=== PATIENT | female | born 1945 | race Caucasian/White ===

== ENCOUNTER 2017-08-29 10:31 | Emergency (ER) | payer MEDICARE ==
[2017-08-29] MEDS ORDERED: Adenocard IV 6 MG/2 ML IV ×2 (10:41→11:22)
[2017-08-29] MEDS ORDERED: Sodium Chloride 0.9% 1000 ML 1,000 ML (10:41)
[2017-08-29] MEDS: Adenocard IV 6 MG/2 ML IV (10:47)
[2017-08-29 11:06] LABS: BASOPHIL % 0.1 % (0.0-0.4); Basophil (Absolute #) 0.01 (0-0.4); Eosinophil % 2.4 % (0.00-5.0); Granulocyte Absolute (ANC) 4.29 (1.4-6.9); Granulocytes % 51.3 % (36.0-66.0); Hematocrit 41.9 % (35-47); Hemoglobin 13.9 gm/dl (12.0-16.0); Lymphocyte (Absolute #) 3.34 (1.0-4.6); Mean Cell Volume 92.3 fl (78-100); Mean Corpuscular Hemoglobin 30.6 pg (26-32); Mean Corpuscular Hgb Concent. 33.2 g/dl (32-36); Mean Platelet Volume 10.3 fl (6-9.5); Monocyte (Absolute #) 0.52 (0.0-1.3); Monocytes % 6.2 % (0.0-12.0); Platelet Count 324 K/mm3 (150-450); Red Blood Count 4.54 M/mm3 (4.1-5.4); Red Cell Distribution Width 13.7 % (11.5-14.0); White Blood Count 8.4 K/mm3 (4.0-10.5)
[2017-08-29 11:08] LABS: ADD MANUAL DIFF? NO (NO)
[2017-08-29 11:09] LABS: Lactic Acid 2.2 (0.4-2.0)
[2017-08-29 11:24] LABS: INR 0.95 (0.8-3.0)
[2017-08-29 11:45] LABS: Appearance CLEAR (CLEAR); Collection Type CLEAN CATCH
[2017-08-29 11:46] LABS: ALBUMIN 4.5 g/dL (3.5-5.0); ALKALINE PHOSPHATASE 63 U/L (38-126); ANION GAP 15.2 MEQ/L (5-15); BLOOD UREA NITROGEN 34 mg/dL (7-17); Bilirubin NEGATIVE (NEGATIVE); Blood TRACE NON-HEM Ery/ul (0-5); CHLORIDE 109 mmol/L (98-107); COMPLETE URINE MICROSCOPIC? YES; Calcium 9.7 mg/dL (8.4-10.2); Carbon Dioxide 21 mmol/L (22-30); Creatinine 1 1.26 mg/dL (0.52-1.04); EST GLOMERULAR FILTRATION RATE 44.4 ML/MIN; Glucose 128 mg/dL (74-106); Glucose NEGATIVE (NEGATIVE); Ketones TRACE (NEGATIVE); Leukocyte Esterase 1+ (NEGATIVE); Nitrite NEGATIVE (NEGATIVE); Potassium 4.2 mmol/L (3.5-5.1); Protein,Urine Dip NEGATIVE (Negative); SGOT/AST 32 U/L (14-36); SGPT/ALT 12 U/L (0-35); SODIUM 140 mmol/L (137-145); Specific Gravity 1.005 (1.005-1.025); Total Protein 7.9 g/dL (6.3-8.2); Urobilinogen NORMAL mg/dL (0-1)
[2017-08-29 11:47] LABS: ADD URINE CULTURE? YES (NO); Bacteria FEW /HPF (NEGATIVE); Epithelial Cells RARE /HPF (FEW)
[2017-08-29] MEDS ORDERED: CALAN IV (11:47)
[2017-08-29] MEDS: CALAN IV (11:53)
[2017-08-29 11:58] LABS: TROPONIN 0.018 ng/mL (0.000-0.034)
== END 2017-08-29 12:34 | disposition home or self-care (01) ==
LOC: ED 10:31
CPT/HCPCS: 36000; 36415; 71046; 80053; 81000; 83605; 84484; 85025; 85610; 87086; 93005; 96374; 99291; J0153

== ENCOUNTER 2017-10-23 20:31 | Emergency (ER) | payer MEDICARE ==
[2017-10-23 21:20] VITALS: O2SAT 99
[2017-10-23] MEDS ORDERED: ANTIVERT 25 MG PO ONE (21:26)
[2017-10-23] MEDS ORDERED: Zofran 4 MG/2 ML VIAL IV ONE (21:26)
[2017-10-23] MEDS ORDERED: Sodium Chloride 0.9% 500 ML 500 ML IV ONE ×2 (21:28→22:06)
--- NOTE | 2017-10-23 21:37 | ERPHSYRPT ---
- History of Present Illness Time Seen by Provider: 10/23/17 21:15 Source: patient Exam Limitations: no limitations Patient Subjective Stated Complaint: pt is alert and oriented. pt is ambulatory with a steady gait. pt comes in with c/o n/v/dizziness since 1600 today. pt has vomitted x4 times since then. denies chest pain. Triage Nursing Assessment: see above Physician History: Pt states, she was sitting, and working on an iPad, when suddenly felt dizzy, became nauseated, and vomited x4. She has a history of vertigo, and started feeling the same kind of rotation a little later, but denies headaches, chest pain, cough, SOB, focal weakness, fever, chills, other complaints, denies LOC, syncope. She was diagnosed recently with left arm blood clot and takes Eliquis. Timing/Duration: hour(s) (7.5), sudden Severity: moderate Character of Deficits: none Deficits: no difficulties Baseline/Normal Cognition: alert oriented x 3 Current Cognition: alert oriented x 3 Baseline Gait: walks w/o assistance Associated Symptoms: nausea, vomiting Allergies/Adverse Reactions: diltiazem HCl [From Cardizem] Allergy (Intermediate, Verified 01/09/16 17:29) Rash Sulfa (Sulfonamide Antibiotics) [Sulfa(Sulfonamide Antibiotics)] Allergy ( Intermediate, Verified 01/09/16 17:29) NUMBESS TO FEET stated having numbness in hands and feet betamethasone sodium phosphate [From Celestone] Allergy (Mild, Verified 17:29) IRREGULAR HEARTRATE Tetanus Vaccines and Toxoid [Tetanus] Allergy (Mild, Verified 01/09/16 17:29) Swelling hydrocodone bitartrate [From Vicodin] Adverse Reaction (Intermediate, Verified 01/09/16 17:29) Nausea and Vomiting morphine Adverse Reaction (Intermediate, Verified 01/09/16 17:29) Itching betamethasone [From [place]] Adverse Reaction (Mild, Verified 01/09/16 17:29) Irregular Heart Beat epinephrine Adverse Reaction (Mild, Verified 01/09/16 17:29) Rapid Heart Beat PPD Allergy (Mild, Uncoded 01/09/16 17:29) Swelling Home Medications: Aspirin [Aspir 81] 81 mg PO DAILY 01/09/12 [History] Pyridostigmine [place] [Mestinon] 60 mg PO TID 05/21/14 [History] Lansoprazole [Prevacid] 30 mg PO DAILY 08/20/14 [History] Verapamil HCl Sr 180 mg [Isoptin Sr 180Mg] 80 mg PO DAILY 08/20/14 [ History] Apixaban [Eliquis 5 mg Tablet] 5 mg PO DAILY 10/23/17 [History] Hx Tetanus, Diphtheria Vaccination/Date Given: Yes (ALLERGIC) Hx Influenza Vaccination/Date Given: No Hx Pneumococcal Vaccination/Date Given: No Immunizations Up to Date: Yes - Review of Systems Constitutional: No Symptoms Eyes: No Symptoms Abdominal/Gastrointestinal: Nausea, Vomiting, No Abdominal Pain Neurological: Dizziness, Vertigo All Other Systems: Reviewed and Negative - Past Medical History Pertinent Past Medical History: Yes Neurological History: No Pertinent History ENT History: No Pertinent History Cardiac History: Arrhythmia, Other Respiratory History: No Pertinent History, Other Endocrine Medical History: No Pertinent History Musculoskeletal History: Arthritis, Other GI Medical History: No Pertinent History History: No Pertinent History Psycho-Social History: No Pertinent History Female Reproductive Disorders: No Pertinent History Other Medical History: MUSCULAR DYSTROPHY, svt, heart murmur - Past Surgical History Past Surgical History: Yes Neuro Surgical History: No Pertinent History Cardiac: No Pertinent History Respiratory: No Pertinent History Gastrointestinal: No Pertinent History Genitourinary: No Pertinent History Musculoskeletal: No Pertinent History Female Surgical History: No Pertinent History Other Surgical History: GLAND DRAINED IN NECK AN - Social History Smoking Status: Never smoker Exposure to second hand smoke: No Drug Use: none Patient Lives Alone: Yes - Female History Hx Now: No - Nursing Vital Signs Nursing Vital Signs: Initial Vital Signs Temperature 97.6 F 10/23/17 20:32 Pulse Rate 56 L 10/23/17 20:32 Respiratory Rate 16 10/23/17 20:32 Blood Pressure 148/85 10/23/17 20:32 O2 Sat by Pulse Oximetry 99 10/23/17 20:32 Pain Scale Pain Intensity 2 - Avis Coma Scale Best Eye Response (Koki): (4) open spontaneously Best Verbal Response (Avis): (5) oriented Best Motor Response (Koki): (6) obeys commands Koki Total: 15 - Physical Exam General Appearance: no apparent distress Eye Exam: bilateral eye: PERRL, EOMI Ears, Nose, Throat Exam: normal ENT inspection, TMs normal, pharynx normal, moist mucous membranes Neck Exam: normal inspection, non-tender, supple, No carotid bruit, No JVD, No lymphadenopathy Respiratory: normal breath sounds, lungs clear, airway intact, No chest tenderness, No respiratory distress Cardiovascular: regular rate/rhythm, normal heart sounds, normal peripheral pulses, No murmur Gastrointestinal: soft, normal bowel sounds, No tenderness, No distention, No mass, No guarding, No ecchymosis, No rebound, No organomegaly Back Exam: normal inspection, No CVA tenderness Extremity Exam: normal inspection, No calf tenderness, No elijah's sign, No pedal edema Peripheral Pulses: dorsalis-pedis (R): 3+, dorsalis-pedis (L): 3+ Mental Status: alert, oriented x 3, 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 Exam: normal hearing, normal speech, PERRL Coordination/Gait: normal gait, normal cerebellar function Motor/Sensory: no motor deficit, no sensory deficit DTR: knee (R): 3+, knee (L): 3+ Skin Exam: normal color, warm, dry, rash SpO2 Interpretation: normal SpO2: 99 Oxygen Delivery: Room Air - Course Nursing assessment & vital signs reviewed: Yes EKG Interpreted by Me: RATE (59/min), Sinus Beto, Left [place] Deviation, NORMAL INTERVALS, Non-specific ST Changes, Other (unchanged from 08/29/17) - CT Exams Head CT Interpretation: Negative, Tele-radiologist Report Ordered Tests: Active Orders 24 hr Category Date Time Status Sulphate Tester STAT Care 10/23/17 21:26 Active EKG-ER Only STAT Care 10/23/17 21:26 Active IV Insertion STAT Care 10/23/17 21:26 Active HEAD WITHOUT CONTRAST [CT] Stat Exams 10/23/17 21:26 Taken CBC W DIFF Stat Lab 10/23/17 22:30 Completed CMP Stat Lab 10/23/17 22:30 Completed CULTURE,URINE Stat Lab 10/23/17 22:30 Received PROTIME WITH INR Stat Lab 10/23/17 22:45 Completed TROPONIN Q3H Lab 10/23/17 22:45 Completed TROPONIN Q3H Lab 10/24/17 00:30 Ordered TROPONIN Q3H Lab 10/24/17 03:30 Ordered TROPONIN Q3H Lab 10/24/17 06:30 Ordered TROPONIN Q3H Lab 10/24/17 09:30 Ordered UA W/ MICROSCOPIC Stat Lab 10/23/17 22:30 Completed Medication Summary Discontinued Medications Generic Name Dose Route Start Last Admin Trade Name Higinio PRN Reason Stop Dose Admin Sodium Chloride 500 mls @ 500 mls/hr 10/23/17 21:28 10/23/17 22:48 Sodium Chloride 0.9% 500 Ml IV 10/23/17 22:27 500 mls/hr .Q1H ONE Administration Sodium Chloride Confirm 10/23/17 22:06 Sodium Chloride 0.9% 500 Ml Administered 10/23/17 22:07 Dose 500 mls @ ud IV .STK-MED ONE Meclizine HCl 12.5 mg 10/23/17 21:26 10/23/17 22:07 Antivert 25 Mg PO 10/23/17 21:27 12.5 mg STAT ONE Administration Meclizine HCl Confirm 10/23/17 22:06 Antivert 25 Mg Administered 10/23/17 22:07 Dose 25 mg .ROUTE .STK-MED ONE Ondansetron HCl 4 mg 10/23/17 21:26 10/23/17 22:48 Zofran 4 Mg/2 Ml Vial IV 10/23/17 21:27 4 mg STAT ONE Administration Ondansetron HCl Confirm 10/23/17 22:06 Zofran 4 Mg/2 Ml Vial Administered 10/23/17 22:07 Dose 4 mg .ROUTE .STK-MED ONE Lab/Rad Data: Laboratory Result Diagrams 10/23/17 22:30 10/23/17 22:30 Laboratory Results 10/23/17 10/23/17 10/23/17 Range/Units 22:45 22:45 22:30 WBC (4.0-10.5) K/mm3 RBC (4.1-5.4) M/mm3 Hgb (12.0-16.0) gm/dl Hct (35-47) % MCV (78-100) fl MCH (26-32) pg MCHC (32-36) g/dl RDW (11.5-14.0) % Plt Count (150-450) K/mm3 MPV (6-9.5) fl Gran % (36.0-66.0) % Eos # (Auto) (0-0.5) Absolute Lymphs (auto) (1.0-4.6) Absolute Monos (auto) (0.0-1.3) Lymphocytes % (24.0-44.0) % Monocytes % (0.0-12.0) % Eosinophils % (0.00-5.0) % Basophils % (0.0-0.4) % Absolute Granulocytes (1.4-6.9) Basophils # (0-0.4) PT 15.3 H (9.95-12.35) SECONDS INR 1.31 (0.8-3.0) Sodium 137 (137-145) mmol/L Potassium 4.4 (3.5-5.1) mmol/L Chloride 106 (98-107) mmol/L Carbon Dioxide 24 (22-30) mmol/L Anion Gap 11.4 (5-15) MEQ/L BUN 31 H (7-17) mg/dL Creatinine 1.04 (0.52-1.04) mg/dL Estimated GFR 55.4 ML/MIN Glucose 125 H (74-106) mg/dL Calcium 9.1 (8.4-10.2) mg/dL Total Bilirubin 0.70 (0.2-1.3) mg/dL AST 30 (14-36) U/L ALT 17 (0-35) U/L Alkaline Phosphatase 59 (38-126) U/L Troponin I < 0.012 (0.000-0.034) ng/mL Serum Total Protein 7.5 (6.3-8.2) g/dL Albumin 4.5 (3.5-5.0) g/dL Ur Collection Type Urine Color (YELLOW) Urine Appearance (CLEAR) Urine pH (5-6) Ur Specific [place] (1.005-1.025) Urine Protein (Negative) Urine Ketones (NEGATIVE) Urine Blood (0-5) Kenny/ul Urine Nitrite (NEGATIVE) Urine Bilirubin (NEGATIVE) Urine Urobilinogen (0-1) mg/dL Ur Leukocyte Esterase (NEGATIVE) Urine Microscopic WBC (0-5) /HPF Ur Epithelial Cells (FEW) /HPF Urine Bacteria (NEGATIVE) /HPF Urine Mucus (NEGATIVE) /HPF Urine Culture Reflexed (NO) Urine Glucose (NEGATIVE) mg/dL Specimen Received 10/23/17 10/23/17 Range/Units 22:30 22:30 WBC 4.5 (4.0-10.5) K/mm3 RBC 4.03 L (4.1-5.4) M/mm3 Hgb 12.5 (12.0-16.0) gm/dl Hct 37.5 (35-47) % MCV 93.1 (78-100) fl MCH 31.0 (26-32) pg MCHC 33.3 (32-36) g/dl RDW 13.7 (11.5-14.0) % Plt Count 186 (150-450) K/mm3 MPV 10.5 H (6-9.5) fl Gran % 75.4 H (36.0-66.0) % Eos # (Auto) 0.02 (0-0.5) Absolute Lymphs (auto) 0.91 L (1.0-4.6) Absolute Monos (auto) 0.17 (0.0-1.3) Lymphocytes % 20.2 L (24.0-44.0) % Monocytes % 3.8 (0.0-12.0) % Eosinophils % 0.4 (0.00-5.0) % Basophils % 0.2 (0.0-0.4) % Absolute Granulocytes 3.40 (1.4-6.9) Basophils # 0.01 (0-0.4) PT (9.95-12.35) SECONDS INR (0.8-3.0) Sodium (137-145) mmol/L Potassium (3.5-5.1) mmol/L Chloride (98-107) mmol/L Carbon Dioxide (22-30) mmol/L Anion Gap (5-15) MEQ/L BUN (7-17) mg/dL Creatinine (0.52-1.04) mg/dL Estimated GFR ML/MIN Glucose (74-106) mg/dL Calcium (8.4-10.2) mg/dL Total Bilirubin (0.2-1.3) mg/dL AST (14-36) U/L ALT (0-35) U/L Alkaline Phosphatase (38-126) U/L Troponin I (0.000-0.034) ng/mL Serum Total Protein (6.3-8.2) g/dL Albumin (3.5-5.0) g/dL Ur Collection Type CCMS Urine Color YELLOW (YELLOW) Urine Appearance CLEAR (CLEAR) Urine pH 7.0 (5-6) Ur Specific [place] 1.015 (1.005-1.025) Urine Protein TRACE (Negative) Urine Ketones NEGATIVE (NEGATIVE) Urine Blood NEGATIVE (0-5) Kenny/ul Urine Nitrite NEGATIVE (NEGATIVE) Urine Bilirubin NEGATIVE (NEGATIVE) Urine Urobilinogen NORMAL (0-1) mg/dL Ur Leukocyte Esterase 1+ (NEGATIVE) Urine Microscopic WBC 15-25 (0-5) /HPF Ur Epithelial Cells MANY (FEW) /HPF Urine Bacteria FEW (NEGATIVE) /HPF Urine Mucus SLIGHT (NEGATIVE) /HPF Urine Culture Reflexed YES (NO) Urine Glucose NEGATIVE (NEGATIVE) mg/dL Specimen Received 10-23-17 2252 - Progress Progress: improved Progress Note: 10/23/17 23:47 Pt states, she feels much better, not nauseated, her vertigo, dizziness resolved , denies any pain. I explained our findings to her, she is being discharged in stable condition to rest x 2-3 days, drink plenty of fluids, and follow up with her physician in 2-3 days, return if severe headaches, dizziness, chest pain or vomiting. She is discharged on Meclizine 12.5 mg PO TID as needed, and Zofran ODT #5. Counseled pt/family regarding: lab results, diagnosis, need for follow-up, rad results - Departure Time of Disposition: 23:49 Departure Disposition: Home Clinical Impression: Vertigo Condition: Stable Critical Care Time: No Referrals: KRISTOPHER CASEY MD [Primary Care Provider] - Instructions: Vomiting -- Adult, Vertigo (a Type of Dizziness) (DC) Additional Instructions: Rest x 2-3 days, drink plenty of fluids, return if severe headaches, dizziness, vomiting, focal weakness, chest pain or lethargy ! Follow up with your physician in 2-3 days! Prescriptions: Ondansetron ODT 4 MG [Zofran Odt 4 mg] 4 mg PO Q6H PRN PRN #10 tab.rapdis PRN Reason: Nausea/Vomiting Meclizine HCl 12.5 mg PO TID PRN #15 tablet PRN Reason: Dizziness
[2017-10-23] MEDS ORDERED: Zofran 4 MG/2 ML VIAL ONE (22:06)
[2017-10-23] MEDS ORDERED: ANTIVERT 25 MG ONE (22:06)
[2017-10-23 22:16] VITALS: BP 162/84; PULSE 60
[2017-10-23 22:42] LABS: BASOPHIL % 0.2 % (0.0-0.4); Basophil (Absolute #) 0.01 (0-0.4); Eosinophil % 0.4 % (0.00-5.0); Eosinophil (Absolute #) 0.02 (0-0.5); Granulocytes % 75.4 % (36.0-66.0); Hematocrit 37.5 % (35-47); Hemoglobin 12.5 gm/dl (12.0-16.0); Lymphocyte (Absolute #) 0.91 (1.0-4.6); Lymphocytes % 20.2 % (24.0-44.0); Mean Cell Volume 93.1 fl (78-100); Mean Corpuscular Hgb Concent. 33.3 g/dl (32-36); Mean Platelet Volume 10.5 fl (6-9.5); Monocyte (Absolute #) 0.17 (0.0-1.3); Monocytes % 3.8 % (0.0-12.0); Platelet Count 186 K/mm3 (150-450); Red Blood Count 4.03 M/mm3 (4.1-5.4); Red Cell Distribution Width 13.7 % (11.5-14.0); White Blood Count 4.5 K/mm3 (4.0-10.5)
[2017-10-23 22:52] LABS: Appearance CLEAR (CLEAR); Bilirubin NEGATIVE (NEGATIVE); Blood NEGATIVE Ery/ul (0-5); Glucose NEGATIVE (NEGATIVE); Ketones NEGATIVE (NEGATIVE); Leukocyte Esterase 1+ (NEGATIVE); Nitrite NEGATIVE (NEGATIVE); Protein,Urine Dip TRACE (Negative); Specific Gravity 1.015 (1.005-1.025); Urobilinogen NORMAL mg/dL (0-1)
[2017-10-23 22:53] LABS: Bacteria FEW /HPF (NEGATIVE); Epithelial Cells MANY /HPF (FEW); Mucus SLIGHT /HPF (NEGATIVE); WBC 15-25 /HPF (0-5)
[2017-10-23 23:00] LABS: INR 1.31 (0.8-3.0)
[2017-10-23 23:05] LABS: ALBUMIN 4.5 g/dL (3.5-5.0); ANION GAP 11.4 MEQ/L (5-15); BILIRUBIN,TOTAL 0.7 mg/dL (0.2-1.3); Calcium 9.1 mg/dL (8.4-10.2); Creatinine 1 1.04 mg/dL (0.52-1.04); Potassium 4.4 mmol/L (3.5-5.1); Total Protein 7.5 g/dL (6.3-8.2)
[2017-10-24] MEDS ORDERED: AMOXIL 500 MG PO ONE (00:10)
[2017-10-24] MEDS ORDERED: AMOXIL 500 MG ONE (00:13)
[2017-10-24] MEDS ORDERED: AMOXIL 250 MG/5 ML PO ONE (00:24)
[2017-10-24] MEDS ORDERED: AMOXIL 250 MG/5 ML ONE (00:28)
--- NOTE | 2017-10-24 08:31 | XRAY ---
Indication: Dizziness. No known injury. Multiple contiguous axial images obtained through the head without contrast. Comparison: September 02, 2007. Again normal appearing brain parenchyma, ventricles, and bony calvarium. Visualized paranasal sinuses and mastoid air cells are clear. Impression: Stable normal CT head without contrast exam. CT DI 68.65
== END 2017-10-24 00:38 | disposition home or self-care (01) ==
LOC: ED 20:31
DX: R42 Dizziness and giddiness (principal); R11.2 Nausea with vomiting, unspecified; Z79.01 Long term (current) use of anticoagulants; Z79.899 Other long term (current) drug therapy
CPT/HCPCS: 36415; 70450; 80053; 81000; 84484; 85025; 85610; 87086; 93041; 96360; 96374; 99284; J2405; A9270-GY

== ENCOUNTER 2018-01-18 14:39 | Emergency (ER) | payer MEDICARE ==
--- NOTE | 2018-01-18 15:09 | ERPHSYRPT ---
- History of Present Illness Time Seen by Provider: 01/18/18 15:02 Source: patient Exam Limitations: no limitations Physician History: The patient is a 72-year-old right-handed female with a friend complaining that she accidentally hit the car door with her right hand causing a skin tear to the backside of her right hand. Her tetanus vaccination is not up-to-date because she is allergic to tetanus vaccine. She denies numbness or tingling. There is some mild bleeding. Her past medical history is significant for muscular dystrophy, GERD, A. fib. Timing/Duration: today Quality: painful Severity: mild Location: hands (right) Possible Causes: other (trauma) Associated Symptoms: other (skin tear) Allergies/Adverse Reactions: diltiazem HCl [From Cardizem] Allergy (Intermediate, Verified 01/18/18 15:04) Rash Sulfa (Sulfonamide Antibiotics) [Sulfa(Sulfonamide Antibiotics)] Allergy ( Intermediate, Verified 01/18/18 15:04) NUMBESS TO FEET stated having numbness in hands and feet betamethasone sodium phosphate [From Celestone] Allergy (Mild, Verified 15:04) IRREGULAR HEARTRATE Tetanus Vaccines and Toxoid [Tetanus] Allergy (Mild, Verified 01/18/18 15:04) Swelling hydrocodone bitartrate [From Vicodin] Adverse Reaction (Intermediate, Verified 01/18/18 15:04) Nausea and Vomiting morphine Adverse Reaction (Intermediate, Verified 01/18/18 15:04) Itching betamethasone [From Celestone] Adverse Reaction (Mild, Verified 01/18/18 15:04) Irregular Heart Beat epinephrine Adverse Reaction (Mild, Verified 01/18/18 15:04) Rapid Heart Beat PPD Allergy (Mild, Uncoded 01/18/18 15:04) Swelling Home Medications: Aspirin [Aspir 81] 81 mg PO DAILY 01/09/12 [History] Pyridostigmine [place] [Mestinon] 60 mg PO TID 05/21/14 [History] Lansoprazole [Prevacid] 30 mg PO DAILY 08/20/14 [History] Verapamil HCl Sr 180 mg [Isoptin Sr 180Mg] 80 mg PO DAILY 08/20/14 [ History] Apixaban [Eliquis 5 mg Tablet] 5 mg PO DAILY 10/23/17 [History] Hx Tetanus, Diphtheria Vaccination/Date Given: Yes (ALLERGIC) Hx Influenza Vaccination/Date Given: No Hx Pneumococcal Vaccination/Date Given: No - Review of Systems Constitutional: No Fever, No Chills Eyes: No Symptoms Ears, Nose, & Throat: No Symptoms Respiratory: No Cough, No Dyspnea Cardiac: No Chest Pain, No Edema, No Syncope Abdominal/Gastrointestinal: No Abdominal Pain, No Nausea, No Vomiting, No Diarrhea Genitourinary Symptoms: No Dysuria Musculoskeletal: No Back Pain, No Neck Pain Skin: Other (skin tear) Neurological: No Dizziness, No Focal Weakness, No Sensory Changes Psychological: No Symptoms Endocrine: No Symptoms Hematologic/Lymphatic: No Symptoms Immunological/Allergic: No Symptoms All Other Systems: Reviewed and Negative - Past Medical History Pertinent Past Medical History: Yes Neurological History: No Pertinent History ENT History: No Pertinent History Cardiac History: Arrhythmia, Other Respiratory History: No Pertinent History, Other Endocrine Medical History: No Pertinent History Musculoskeletal History: Arthritis, Other GI Medical History: No Pertinent History History: No Pertinent History Psycho-Social History: No Pertinent History Female Reproductive Disorders: No Pertinent History Other Medical History: MUSCULAR DYSTROPHY, svt, heart murmur - Past Surgical History Past Surgical History: Yes Neuro Surgical History: No Pertinent History Cardiac: No Pertinent History Respiratory: No Pertinent History Gastrointestinal: No Pertinent History Genitourinary: No Pertinent History Musculoskeletal: No Pertinent History Female Surgical History: No Pertinent History Other Surgical History: GLAND DRAINED IN NECK AN - Social History Smoking Status: Never smoker Exposure to second hand smoke: No Drug Use: none Patient Lives Alone: Yes - Nursing Vital Signs Nursing Vital Signs: Initial Vital Signs Temperature 98.0 F 01/18/18 14:57 Pulse Rate 56 L 01/18/18 14:57 Respiratory Rate 16 01/18/18 14:57 Blood Pressure 151/76 01/18/18 14:57 O2 Sat by Pulse Oximetry 99 01/18/18 14:57 Pain Scale Pain Intensity 2 - Physical Exam General Appearance: no apparent distress, alert Eye Exam: PERRL/EOMI, eyes nml inspection Ears, Nose, Throat Exam: normal ENT inspection, pharynx normal, moist mucous membranes Neck Exam: normal inspection, non-tender, supple, full range of motion Respiratory Exam: normal breath sounds, lungs clear, No respiratory distress Cardiovascular Exam: regular rate/rhythm, normal heart sounds Gastrointestinal/Abdomen Exam: soft, mass, No tenderness Pelvic Exam: not done Rectal Exam: not done Back Exam: normal inspection, normal range of motion, No CVA tenderness, No vertebral tenderness Extremity Exam: normal inspection, normal range of motion Neurologic Exam: alert, oriented x 3, cooperative, normal mood/affect, sensation nml, No motor deficits Skin Exam: laceration (small flap skin tear and linear skin tear to back of right hand.) SpO2 Interpretation: normal Ordered Tests: Active Orders 24 hr Category Date Time Status Wound Care STAT Care 01/18/18 15:12 Ordered - Departure Time of Disposition: 15:14 Departure Disposition: Home Clinical Impression: Skin tear Condition: Stable Critical Care Time: No Referrals: KRISTOPHER CASEY MD [Primary Care Provider] - Additional Instructions: Skin tear to the back of your right hand. The skin tears were closed with Dermabond and Steri-Strips. Allow the Steri-Strips to come off on their own. Take amoxicillin 6 mL 3 times a day for 10 days. Follow-up with your primary medical doctor as needed. Prescriptions: Amoxicillin [Amoxil] 6 ml PO TID #200 ml
[2018-01-18 15:45] VITALS: BP 142/72; PULSE 60; O2SAT 97
== END 2018-01-18 15:45 | disposition home or self-care (01) ==
LOC: ED 14:39
DX: S61.411A Laceration without foreign body of right hand, initial encounter (principal); W22.8XXA Striking against or struck by other objects, initial encounter; Z79.899 Other long term (current) drug therapy
CPT/HCPCS: 12001; 99283

== ENCOUNTER 2018-06-29 17:58 | Emergency (ER) | payer MEDICARE ==
--- NOTE | 2018-06-29 18:11 | ERPHSYRPT ---
- History of Present Illness Time Seen by Provider: 06/29/18 18:11 Source: patient, family Exam Limitations: no limitations Physician History: 72 y/o white female presents with intermittent dizziness over the last few days. this am the dizziness was mild then came on strong and has not left. no head injury and no new medications. pt has a chronic intermittent dizziness. no chest pain and no soa. no abd pain. does not have antivert at home. last time this happened she had a uti. Timing/Duration: today Severity: mild Associated Symptoms: No nausea, No vomiting, No abdominal pain, No chest pain, No headaches, No syncope, No weakness Allergies/Adverse Reactions: diltiazem HCl [From Cardizem] Allergy (Intermediate, Verified 06/29/18 19:36) Rash Sulfa (Sulfonamide Antibiotics) [Sulfa(Sulfonamide Antibiotics)] Allergy ( Intermediate, Verified 06/29/18 19:36) NUMBESS TO FEET stated having numbness in hands and feet betamethasone sodium phosphate [From Celestone] Allergy (Mild, Verified 19:36) IRREGULAR HEARTRATE Tetanus Vaccines and Toxoid [Tetanus] Allergy (Mild, Verified 06/29/18 19:36) Swelling hydrocodone bitartrate [From Vicodin] Adverse Reaction (Intermediate, Verified 06/29/18 19:36) Nausea and Vomiting morphine Adverse Reaction (Intermediate, Verified 06/29/18 19:36) Itching betamethasone [From Celestone] Adverse Reaction (Mild, Verified 06/29/18 19:36) Irregular Heart Beat epinephrine Adverse Reaction (Mild, Verified 06/29/18 19:36) Rapid Heart Beat PPD Allergy (Mild, Uncoded 01/18/18 15:04) Swelling Home Medications: Pyridostigmine [place] [Mestinon] 60 mg PO TID 05/21/14 [History] Lansoprazole [Prevacid] 30 mg PO DAILY 08/20/14 [History] Verapamil HCl Sr 180 mg [Isoptin Sr 180Mg] 80 mg PO DAILY 08/20/14 [ History] Hx Tetanus, Diphtheria Vaccination/Date Given: Yes (ALLERGIC) Hx Influenza Vaccination/Date Given: No Hx Pneumococcal Vaccination/Date Given: No - Review of Systems Constitutional: No Symptoms Eyes: No Symptoms Ears, Nose, & Throat: No Symptoms Respiratory: No Symptoms Cardiac: No Symptoms Abdominal/Gastrointestinal: No Symptoms Genitourinary Symptoms: No Symptoms Musculoskeletal: No Symptoms Skin: No Symptoms Neurological: Dizziness Psychological: No Symptoms Endocrine: No Symptoms Hematologic/Lymphatic: No Symptoms Immunological/Allergic: No Symptoms All Other Systems: Reviewed and Negative - Past Medical History Pertinent Past Medical History: Yes Neurological History: No Pertinent History ENT History: No Pertinent History Cardiac History: Arrhythmia, Other Respiratory History: No Pertinent History, Other Endocrine Medical History: No Pertinent History Musculoskeletal History: Arthritis, Other GI Medical History: No Pertinent History History: No Pertinent History Psycho-Social History: No Pertinent History Female Reproductive Disorders: No Pertinent History Other Medical History: MUSCULAR DYSTROPHY, svt, heart murmur - Past Surgical History Past Surgical History: Yes Neuro Surgical History: No Pertinent History Cardiac: No Pertinent History Respiratory: No Pertinent History Gastrointestinal: No Pertinent History Genitourinary: No Pertinent History Musculoskeletal: No Pertinent History Female Surgical History: No Pertinent History Other Surgical History: GLAND DRAINED IN NECK AN - Social History Smoking Status: Never smoker Exposure to second hand smoke: No Drug Use: none Patient Lives Alone: Yes - Nursing Vital Signs Nursing Vital Signs: Initial Vital Signs Pulse Rate 60 06/29/18 18:06 Respiratory Rate 20 06/29/18 18:06 Blood Pressure 163/90 06/29/18 18:06 O2 Sat by Pulse Oximetry 99 06/29/18 18:06 - Physical Exam General Appearance: mild distress, alert, anxiety Eye Exam: PERRL/EOMI Ears, Nose, Throat Exam: normal ENT inspection, moist mucous membranes Neck Exam: normal inspection, non-tender, supple, full range of motion Respiratory Exam: normal breath sounds, chest tenderness, lungs clear, respiratory distress Cardiovascular Exam: regular rate/rhythm, normal heart sounds, normal peripheral pulses Gastrointestinal/Abdomen Exam: soft, normal bowel sounds, No tenderness, No guarding, No rebound Pelvic Exam: not done Rectal Exam: not done Back Exam: normal inspection, normal range of motion, No CVA tenderness, No vertebral tenderness Extremity Exam: normal inspection, normal range of motion, pelvis stable Neurologic Exam: alert, oriented x 3, cooperative, 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 Skin Exam: normal color, warm, dry Lymphatic Exam: No adenopathy SpO2 Interpretation: normal O2 Delivery: Room Air - Course Nursing assessment & vital signs reviewed: Yes EKG Interpreted by Me: RATE (57), NORMAL AXIS, NORMAL QRS, Non-specific ST Changes, Other (no change from ekg dated 10/23/17) Ordered Tests: Active Orders 24 hr Category Date Time Status Hatchery Helper STAT Care 06/29/18 18:13 Active Clean Catch Urine Specimen STAT Care 06/29/18 18:11 Active EKG-ER Only STAT Care 06/29/18 18:11 Active IV Insertion STAT Care 06/29/18 18:11 Active Pulse Oximetry (ED) STAT Care 06/29/18 18:11 Active HEAD WITHOUT CONTRAST [CT] Stat Exams 06/29/18 18:55 Taken CBC W DIFF Stat Lab 06/29/18 19:10 Completed CMP Stat Lab 06/29/18 19:10 Completed TROPONIN Q3H Lab 06/29/18 19:10 Completed UA W/RFX UR CULTURE Stat Lab 06/29/18 20:40 Completed Urine Triage Profile Stat Lab 06/29/18 20:40 Received Medication Summary Discontinued Medications Generic Name Dose Route Start Last Admin Trade Name Higinio PRN Reason Stop Dose Admin Sodium Chloride 1,000 mls @ 999 mls/hr 06/29/18 18:41 06/29/18 19:22 Sodium Chloride 0.9% 1000 Ml IV 06/29/18 19:41 999 mls/hr .Q1H1M STA Administration Sodium Chloride Confirm 06/29/18 19:19 Sodium Chloride 0.9% 1000 Ml Administered 06/29/18 19:20 Dose 1,000 mls @ ud .ROUTE .STK-MED ONE Lab/Rad Data: Laboratory Result Diagrams 06/29/18 19:10 06/29/18 19:10 Laboratory Results 06/29/18 06/29/18 06/29/18 Range/Units 20:40 19:10 19:10 WBC (4.0-10.5) K/mm3 RBC (4.1-5.4) M/mm3 Hgb (12.0-16.0) gm/dl Hct (35-47) % MCV (78-100) fl MCH (26-32) pg MCHC (32-36) g/dl RDW (11.5-14.0) % Plt Count (150-450) K/mm3 MPV (6-9.5) fl Gran % (36.0-66.0) % Eos # (Auto) (0-0.5) Absolute Lymphs (auto) (1.0-4.6) Absolute Monos (auto) (0.0-1.3) Lymphocytes % (24.0-44.0) % Monocytes % (0.0-12.0) % Eosinophils % (0.00-5.0) % Basophils % (0.0-0.4) % Absolute Granulocytes (1.4-6.9) Basophils # (0-0.4) Sodium 136 L (137-145) mmol/L Potassium 4.2 (3.5-5.1) mmol/L Chloride 104 (98-107) mmol/L Carbon Dioxide 22 (22-30) mmol/L Anion Gap 13.6 (5-15) MEQ/L BUN 30 H (7-17) mg/dL Creatinine 1.10 H (0.52-1.04) mg/dL Estimated GFR 51.9 ML/MIN Glucose 108 H (74-106) mg/dL Calcium 9.2 (8.4-10.2) mg/dL Total Bilirubin 0.90 (0.2-1.3) mg/dL AST 41 H (14-36) U/L ALT 17 (0-35) U/L Alkaline Phosphatase 76 (38-126) U/L Troponin I < 0.012 (0.000-0.034) ng/mL Serum Total Protein 8.3 H (6.3-8.2) g/dL Albumin 4.8 (3.5-5.0) g/dL Urine Color YELLOW (YELLOW) Urine Appearance CLEAR (CLEAR) Urine pH 8.0 (5-6) Ur Specific [place] 1.013 (1.005-1.025) Urine Protein NEGATIVE (Negative) Urine Ketones TRACE (NEGATIVE) Urine Blood NEGATIVE (0-5) Kenny/ul Urine Nitrite NEGATIVE (NEGATIVE) Urine Bilirubin NEGATIVE (NEGATIVE) Urine Urobilinogen NEGATIVE (0-1) mg/dL Ur Leukocyte Esterase NEGATIVE (NEGATIVE) Urine WBC (Auto) 0-2 (0-5) /HPF Urine RBC (Auto) NONE (0-2) /HPF U Epithel Cells (Auto) RARE (FEW) /HPF Urine Bacteria (Auto) NONE SEEN (NEGATIVE) /HPF Urine Mucus (Auto) SLIGHT (NEGATIVE) /HPF Urine Culture Reflexed NO (NO) Urine Glucose NEGATIVE (NEGATIVE) mg/dL 06/29/18 Range/Units 19:10 WBC 6.5 (4.0-10.5) K/mm3 RBC 4.71 (4.1-5.4) M/mm3 Hgb 14.1 (12.0-16.0) gm/dl Hct 44.2 (35-47) % MCV 93.8 (78-100) fl MCH 29.9 (26-32) pg MCHC 31.9 L (32-36) g/dl RDW 13.7 (11.5-14.0) % Plt Count 190 (150-450) K/mm3 MPV 10.4 H (6-9.5) fl Gran % 77.3 H (36.0-66.0) % Eos # (Auto) 0.07 (0-0.5) Absolute Lymphs (auto) 1.18 (1.0-4.6) Absolute Monos (auto) 0.21 (0.0-1.3) Lymphocytes % 18.2 L (24.0-44.0) % Monocytes % 3.2 (0.0-12.0) % Eosinophils % 1.1 (0.00-5.0) % Basophils % 0.2 (0.0-0.4) % Absolute Granulocytes 5.01 (1.4-6.9) Basophils # 0.01 (0-0.4) Sodium (137-145) mmol/L Potassium (3.5-5.1) mmol/L Chloride (98-107) mmol/L Carbon Dioxide (22-30) mmol/L Anion Gap (5-15) MEQ/L BUN (7-17) mg/dL Creatinine (0.52-1.04) mg/dL Estimated GFR ML/MIN Glucose (74-106) mg/dL Calcium (8.4-10.2) mg/dL Total Bilirubin (0.2-1.3) mg/dL AST (14-36) U/L ALT (0-35) U/L Alkaline Phosphatase (38-126) U/L Troponin I (0.000-0.034) ng/mL Serum Total Protein (6.3-8.2) g/dL Albumin (3.5-5.0) g/dL Urine Color (YELLOW) Urine Appearance (CLEAR) Urine pH (5-6) Ur Specific [place] (1.005-1.025) Urine Protein (Negative) Urine Ketones (NEGATIVE) Urine Blood (0-5) Kenny/ul Urine Nitrite (NEGATIVE) Urine Bilirubin (NEGATIVE) Urine Urobilinogen (0-1) mg/dL Ur Leukocyte Esterase (NEGATIVE) Urine WBC (Auto) (0-5) /HPF Urine RBC (Auto) (0-2) /HPF U Epithel Cells (Auto) (FEW) /HPF Urine Bacteria (Auto) (NEGATIVE) /HPF Urine Mucus (Auto) (NEGATIVE) /HPF Urine Culture Reflexed (NO) Urine Glucose (NEGATIVE) mg/dL - Progress Progress: improved, re-examined Progress Note: 06/29/18 20:15 ct scan head-no acute intracranial process 06/29/18 20:57 pt states she is feeling much better and has no dizziness Counseled pt/family regarding: lab results, diagnosis, need for follow-up, rad results - Departure Time of Disposition: 21:30 Departure Disposition: Home Clinical Impression: Dehydration, mild, Dizziness Condition: Stable Critical Care Time: No Referrals: KRISTOPHER CASEY MD [Primary Care Provider] - Additional Instructions: drink plenty of fluids. follow up with primary doctor for further management Prescriptions: Meclizine HCl 25 mg [Antivert 25 mg] 25 mg PO Q8H #10 tablet
[2018-06-29] MEDS ORDERED: Sodium Chloride 0.9% 1000 ML 1,000 ML IV STA (18:41)
[2018-06-29] MEDS ORDERED: Sodium Chloride 0.9% 1000 ML 1,000 ML ONE (19:19)
[2018-06-29 19:32] LABS: BASOPHIL % 0.2 % (0.0-0.4); Basophil (Absolute #) 0.01 (0-0.4); Eosinophil % 1.1 % (0.00-5.0); Eosinophil (Absolute #) 0.07 (0-0.5); Granulocyte Absolute (ANC) 5.01 (1.4-6.9); Granulocytes % 77.3 % (36.0-66.0); Hematocrit 44.2 % (35-47); Hemoglobin 14.1 gm/dl (12.0-16.0); Lymphocyte (Absolute #) 1.18 (1.0-4.6); Lymphocytes % 18.2 % (24.0-44.0); Mean Cell Volume 93.8 fl (78-100); Mean Corpuscular Hemoglobin 29.9 pg (26-32); Mean Corpuscular Hgb Concent. 31.9 g/dl (32-36); Mean Platelet Volume 10.4 fl (6-9.5); Monocyte (Absolute #) 0.21 (0.0-1.3); Monocytes % 3.2 % (0.0-12.0); Platelet Count 190 K/mm3 (150-450); Red Blood Count 4.71 M/mm3 (4.1-5.4); Red Cell Distribution Width 13.7 % (11.5-14.0); White Blood Count 6.5 K/mm3 (4.0-10.5)
[2018-06-29 19:45] LABS: ALBUMIN 4.8 g/dL (3.5-5.0); ANION GAP 13.6 MEQ/L (5-15); BILIRUBIN,TOTAL 0.9 mg/dL (0.2-1.3); Calcium 9.2 mg/dL (8.4-10.2); Creatinine 1 1.1 mg/dL (0.52-1.04); Potassium 4.2 mmol/L (3.5-5.1); Total Protein 8.3 g/dL (6.3-8.2)
[2018-06-29 21:15] LABS: Appearance CLEAR (CLEAR); Bilirubin NEGATIVE (NEGATIVE); Blood NEGATIVE Ery/ul (0-5); Epithelial Cells RARE /HPF (FEW); Glucose NEGATIVE (NEGATIVE); Ketones TRACE (NEGATIVE); Leukocyte Esterase NEGATIVE (NEGATIVE); Mucus SLIGHT /HPF (NEGATIVE); Nitrite NEGATIVE (NEGATIVE); Protein,Urine Dip NEGATIVE (Negative); Specific Gravity 1.013 (1.005-1.025); Urobilinogen NEGATIVE mg/dL (0-1); WBC 0-2 /HPF (0-5)
[2018-06-29 21:20] LABS: Bacteria NONE SEEN /HPF (NEGATIVE)
[2018-06-29 21:28] LABS: Amphetamine,Urine NEGATIVE (NEGATIVE); Barbiturate,Urine NEGATIVE (NEGATIVE); Benzodiazepine,Urine NEGATIVE (NEGATIVE); Cocaine,Urine NEGATIVE (NEGATIVE); Methadone,Urine NEGATIVE (NEGATIVE); Opiate,Urine NEGATIVE (NEGATIVE); PCP,Urine NEGATIVE (NEGATIVE); THC,Urine NEGATIVE (NEGATIVE)
[2018-06-29 21:55] VITALS: BP 155/76; PULSE 67; O2SAT 98
--- NOTE | 2018-06-30 08:36 | XRAY ---
Indication: Dizziness and nausea. Multiple contiguous axial images obtained through the head without contrast. Comparison: October 23, 2017. Again normal appearing brain parenchyma, ventricles, and bony calvarium. Visualized paranasal sinuses and mastoid air cells are clear. Impression: Stable normal CT head without contrast exam. CT DI 67.22
== END 2018-06-29 22:07 | disposition home or self-care (01) ==
LOC: ED 17:58
DX: E86.0 Dehydration (principal); R42 Dizziness and giddiness; Z79.899 Other long term (current) drug therapy
CPT/HCPCS: 36000; 36415; 70450; 80053; 80307; 81001; 84484; 85025; 93005; 93041; 96360; 99284

== ENCOUNTER 2018-07-10 16:22 | Emergency (ER) | payer MEDICARE ==
[2018-07-10] MEDS ORDERED: APRESOLINE 20 MG/ML INJ IV ONE (17:01)
[2018-07-10] MEDS ORDERED: Sodium Chloride 0.9% 1000 ML 1,000 ML IV SCH (17:15)
[2018-07-10 17:22] LABS: BASOPHIL % 0.2 % (0.0-0.4); Basophil (Absolute #) 0.01 (0-0.4); Eosinophil (Absolute #) 0.15 (0-0.5); Granulocyte Absolute (ANC) 2.94 (1.4-6.9); Granulocytes % 58.1 % (36.0-66.0); Hematocrit 41.2 % (35-47); Hemoglobin 13.4 gm/dl (12.0-16.0); Lymphocyte (Absolute #) 1.57 (1.0-4.6); Mean Cell Volume 94.5 fl (78-100); Mean Corpuscular Hemoglobin 30.7 pg (26-32); Mean Corpuscular Hgb Concent. 32.5 g/dl (32-36); Mean Platelet Volume 10.2 fl (6-9.5); Monocyte (Absolute #) 0.39 (0.0-1.3); Monocytes % 7.7 % (0.0-12.0); Platelet Count 187 K/mm3 (150-450); Red Blood Count 4.36 M/mm3 (4.1-5.4); Red Cell Distribution Width 13.7 % (11.5-14.0); White Blood Count 5.1 K/mm3 (4.0-10.5)
[2018-07-10] MEDS ORDERED: APRESOLINE 20 MG/ML INJ ONE (17:24)
[2018-07-10] MEDS ORDERED: Sodium Chloride 0.9% 1000 ML 1,000 ML ONE (17:25)
--- NOTE | 2018-07-10 17:36 | ERPHSYRPT ---
- History of Present Illness Time Seen by Provider: 07/10/18 16:30 Source: patient Exam Limitations: clinical condition Patient Subjective Stated Complaint: pt reports high blood pressure recording today of 144/105, pt reports 30 mins later it was 126/71, pt states she also noticed a knot in her neck on the right side. pt also reports pressure to the forehead but denies pain at this time. pt is concerned there may be something wrong with her carotid artery. Triage Nursing Assessment: pt is aox3, pupils perrl, afebrile, resps easy and non labored, radial pulses strong and equal, cap refill < 3 seconds, pt skin pink warm dry. small raised area palpable to the right neck, pt pulse can be detected while palpating this area. no redness noted, skin is intact. Physician History: PATIENT WITH A HISTORY OF HYPERTENSION,CHRONIC INTERMITTENT DIZZINESS, MYASTHENA GRAVIS, EVALUATED IN EMERGENCY ROOM LAST WEEK FOR DIZZINESS, EVALUATED WITH A NORMAL HEAD CT AND TREATED WITH MECLIZINE. PATIENT PRESENTS TODAY FOR EVALUATED OF A LOCALIZED SWELLING OVER RIGHT SIDE OF NECK. DENIES HEADACHE, BLURRED VISION, SLURRED SPEECH, UNSTEADY GAIT, FOCAL NUMBNESS, TINGLING OR WEAKNESS IN EXTREMITIES. Timing/Duration: today Associated Symptoms: denies symptoms Allergies/Adverse Reactions: diltiazem HCl [From Cardizem] Allergy (Intermediate, Verified 07/10/18 16:49) Rash Sulfa (Sulfonamide Antibiotics) [Sulfa(Sulfonamide Antibiotics)] Allergy ( Intermediate, Verified 07/10/18 16:49) NUMBESS TO FEET stated having numbness in hands and feet betamethasone sodium phosphate [From Celestone] Allergy (Mild, Verified 16:49) IRREGULAR HEARTRATE Tetanus Vaccines and Toxoid [Tetanus] Allergy (Mild, Verified 07/10/18 16:49) Swelling hydrocodone bitartrate [From Vicodin] Adverse Reaction (Intermediate, Verified 07/10/18 16:49) Nausea and Vomiting morphine Adverse Reaction (Intermediate, Verified 07/10/18 16:49) Itching betamethasone [From [place]] Adverse Reaction (Mild, Verified 07/10/18 16:49) Irregular Heart Beat epinephrine Adverse Reaction (Mild, Verified 07/10/18 16:49) Rapid Heart Beat PPD Allergy (Mild, Uncoded 03/29/19 16:49) Swelling Home Medications: Pyridostigmine [place] [Mestinon] 60 mg PO TID 05/21/14 [History] Lansoprazole [Prevacid] 30 mg PO DAILY 08/20/14 [History] Verapamil HCl Sr 180 mg [Isoptin Sr 180Mg] 80 mg PO DAILY 08/20/14 [ History] Hx Tetanus, Diphtheria Vaccination/Date Given: No Hx Influenza Vaccination/Date Given: No Hx Pneumococcal Vaccination/Date Given: No Immunizations Up to Date: Yes - Review of Systems Constitutional: No Fever, No Chills Eyes: No Symptoms Ears, Nose, & Throat: No Symptoms Respiratory: No Symptoms, No Cough, No Dyspnea Cardiac: No Symptoms, No Chest Pain, No Edema, No Syncope Abdominal/Gastrointestinal: No Symptoms, No Abdominal Pain, No Nausea, No Vomiting, No Diarrhea Genitourinary Symptoms: No Symptoms, No Dysuria Musculoskeletal: No Symptoms, No Back Pain, No Neck Pain Skin: No Rash Neurological: No Dizziness, No Focal Weakness, No Sensory Changes Psychological: No Symptoms Endocrine: No Symptoms All Other Systems: Reviewed and Negative - Past Medical History Pertinent Past Medical History: Yes Neurological History: Other ENT History: No Pertinent History Cardiac History: Arrhythmia, Other Respiratory History: No Pertinent History, Other Endocrine Medical History: No Pertinent History Musculoskeletal History: Arthritis, Other GI Medical History: No Pertinent History History: No Pertinent History Psycho-Social History: No Pertinent History Female Reproductive Disorders: No Pertinent History Other Medical History: MUSCULAR DYSTROPHY, svt, heart murmur - Past Surgical History Past Surgical History: Yes Neuro Surgical History: No Pertinent History Cardiac: No Pertinent History Respiratory: No Pertinent History Gastrointestinal: No Pertinent History Genitourinary: No Pertinent History Musculoskeletal: No Pertinent History Female Surgical History: No Pertinent History Other Surgical History: GLAND DRAINED IN NECK AN INFANT - Social History Smoking Status: Never smoker Exposure to second hand smoke: No Drug Use: none Patient Lives Alone: Yes - Female History Hx Now: No - Nursing Vital Signs Nursing Vital Signs: Initial Vital Signs Temperature 97.6 F 07/10/18 16:29 Pulse Rate 60 07/10/18 16:29 Respiratory Rate 18 07/10/18 16:29 Blood Pressure 204/87 07/10/18 16:29 O2 Sat by Pulse Oximetry 100 07/10/18 16:29 Pain Scale Pain Intensity 0 - Physical Exam General Appearance: no apparent distress, alert Eye Exam: PERRL/EOMI, eyes nml inspection Ears, Nose, Throat Exam: normal ENT inspection, TMs normal, pharynx normal, moist mucous membranes Neck Exam: normal inspection, non-tender, supple, full range of motion Respiratory Exam: normal breath sounds, lungs clear, No respiratory distress Cardiovascular Exam: regular rate/rhythm, normal heart sounds, normal peripheral pulses Gastrointestinal/Abdomen Exam: soft, normal bowel sounds, No tenderness, No mass Back Exam: normal inspection, normal range of motion, No CVA tenderness, No vertebral tenderness Extremity Exam: normal inspection, normal range of motion, pelvis stable Neurologic Exam: alert, oriented x 3, cooperative, normal mood/affect, nml cerebellar function, nml station & gait, sensation nml, No motor deficits Skin Exam: normal color, warm, dry, No rash Lymphatic Exam: No adenopathy SpO2: 100 - Course EKG Interpreted by Me: RATE, Sinus Rhythm, Sinus Beto, NORMAL AXIS Ordered Tests: Active Orders 24 hr Category Date Time Status IV Insertion STAT Care 07/10/18 17:20 Active CHEST 1 VIEW (PORTABLE) Stat Exams 07/10/18 17:02 Taken CBC W DIFF Stat Lab 07/10/18 17:15 Completed CMP Stat Lab 07/10/18 17:15 Completed MAGNESIUM Stat Lab 07/10/18 17:15 Completed PROTIME WITH INR Stat Lab 07/10/18 17:15 Completed TROPONIN Q3H Lab 07/10/18 17:15 Completed TROPONIN Q3H Lab 07/10/18 20:15 Ordered TROPONIN Q3H Lab 07/10/18 23:15 Ordered TROPONIN Q3H Lab 07/11/18 02:15 Ordered TROPONIN Q3H Lab 07/11/18 05:15 Ordered UA W/RFX UR CULTURE Stat Lab 07/10/18 17:43 Completed Medication Summary Generic Name Dose Route Start Last Admin Trade Name Freq PRN Reason Stop Dose Admin Sodium Chloride 1,000 mls @ 30 mls/hr 07/10/18 17:15 07/10/18 17:26 Sodium Chloride 0.9% 1000 Ml IV 08/09/18 17:14 30 mls/hr .Q24H NAHID Administration Discontinued Medications Generic Name Dose Route Start Last Admin Trade Name Freq PRN Reason Stop Dose Admin Hydralazine HCl 10 mg 07/10/18 17:01 07/10/18 17:26 Apresoline 20 Mg/Ml Inj IV 07/10/18 17:02 10 mg STAT ONE Administration Hydralazine HCl Confirm 07/10/18 17:24 Apresoline 20 Mg/Ml Inj Administered 07/10/18 17:25 Dose 20 mg .ROUTE .STK-MED ONE Ceftriaxone Sodium/Dextrose 1 g in 50 mls @ 100 mls/hr 07/10/18 18:12 18:20 Rocephin 1 Gm-D5w 50 Ml Bag IV 07/10/18 18:41 1 ml/hr STAT STA 1 mls/hr Administration Ceftriaxone Sodium/Dextrose Confirm 07/10/18 18:14 Rocephin 1 Gm-D5w 50 Ml Bag Administered 07/10/18 18:15 Dose 1 g in 50 mls @ ud IV .STK-MED ONE Lab/Rad Data: Laboratory Result Diagrams 07/10/18 17:15 07/10/18 17:15 Laboratory Results 07/10/18 07/10/18 07/10/18 Range/Units 17:43 17:15 17:15 WBC (4.0-10.5) K/mm3 RBC (4.1-5.4) M/mm3 Hgb (12.0-16.0) gm/dl Hct (35-47) % MCV (78-100) fl MCH (26-32) pg MCHC (32-36) g/dl RDW (11.5-14.0) % Plt Count (150-450) K/mm3 MPV (6-9.5) fl Gran % (36.0-66.0) % Eos # (Auto) (0-0.5) Absolute Lymphs (auto) (1.0-4.6) Absolute Monos (auto) (0.0-1.3) Lymphocytes % (24.0-44.0) % Monocytes % (0.0-12.0) % Eosinophils % (0.00-5.0) % Basophils % (0.0-0.4) % Absolute Granulocytes (1.4-6.9) Basophils # (0-0.4) PT (9.95-12.35) SECONDS INR (0.8-3.0) Sodium (137-145) mmol/L Potassium (3.5-5.1) mmol/L Chloride (98-107) mmol/L Carbon Dioxide (22-30) mmol/L Anion Gap (5-15) MEQ/L BUN (7-17) mg/dL Creatinine (0.52-1.04) mg/dL Estimated GFR ML/MIN Glucose (74-106) mg/dL Calcium (8.4-10.2) mg/dL Magnesium 2.3 (1.6-2.3) mg/dL Total Bilirubin (0.2-1.3) mg/dL AST (14-36) U/L ALT (0-35) U/L Alkaline Phosphatase (38-126) U/L Troponin I < 0.012 (0.000-0.034) ng/mL Serum Total Protein (6.3-8.2) g/dL Albumin (3.5-5.0) g/dL Urine Color STRAW (YELLOW) Urine Appearance CLEAR (CLEAR) Urine pH 6.0 (5-6) Ur Specific [place] 1.006 (1.005-1.025) Urine Protein NEGATIVE (Negative) Urine Ketones NEGATIVE (NEGATIVE) Urine Blood NEGATIVE (0-5) Kenny/ul Urine Nitrite NEGATIVE (NEGATIVE) Urine Bilirubin NEGATIVE (NEGATIVE) Urine Urobilinogen NEGATIVE (0-1) mg/dL Ur Leukocyte Esterase TRACE (NEGATIVE) Urine WBC (Auto) 6-10 (0-5) /HPF Urine RBC (Auto) NONE (0-2) /HPF U Epithel Cells (Auto) RARE (FEW) /HPF Urine Bacteria (Auto) RARE (NEGATIVE) /HPF Urine Culture Reflexed NO (NO) Urine Glucose NEGATIVE (NEGATIVE) mg/dL 07/10/18 07/10/18 07/10/18 Range/Units 17:15 17:15 17:15 WBC 5.1 (4.0-10.5) K/mm3 RBC 4.36 (4.1-5.4) M/mm3 Hgb 13.4 (12.0-16.0) gm/dl Hct 41.2 (35-47) % MCV 94.5 (78-100) fl MCH 30.7 (26-32) pg MCHC 32.5 (32-36) g/dl RDW 13.7 (11.5-14.0) % Plt Count 187 (150-450) K/mm3 MPV 10.2 H (6-9.5) fl Gran % 58.1 (36.0-66.0) % Eos # (Auto) 0.15 (0-0.5) Absolute Lymphs (auto) 1.57 (1.0-4.6) Absolute Monos (auto) 0.39 (0.0-1.3) Lymphocytes % 31.0 (24.0-44.0) % Monocytes % 7.7 (0.0-12.0) % Eosinophils % 3.0 (0.00-5.0) % Basophils % 0.2 (0.0-0.4) % Absolute Granulocytes 2.94 (1.4-6.9) Basophils # 0.01 (0-0.4) PT 11.5 (9.95-12.35) SECONDS INR 0.99 (0.8-3.0) Sodium 139 (137-145) mmol/L Potassium 4.8 (3.5-5.1) mmol/L Chloride 108 H (98-107) mmol/L Carbon Dioxide 25 (22-30) mmol/L Anion Gap 10.1 (5-15) MEQ/L BUN 20 H (7-17) mg/dL Creatinine 0.90 (0.52-1.04) mg/dL Estimated GFR > 60.0 ML/MIN Glucose 92 (74-106) mg/dL Calcium 9.3 (8.4-10.2) mg/dL Magnesium (1.6-2.3) mg/dL Total Bilirubin 0.90 (0.2-1.3) mg/dL AST 41 H (14-36) U/L ALT 16 (0-35) U/L Alkaline Phosphatase 60 (38-126) U/L Troponin I (0.000-0.034) ng/mL Serum Total Protein 8.2 (6.3-8.2) g/dL Albumin 4.4 (3.5-5.0) g/dL Urine Color (YELLOW) Urine Appearance (CLEAR) Urine pH (5-6) Ur Specific [place] (1.005-1.025) Urine Protein (Negative) Urine Ketones (NEGATIVE) Urine Blood (0-5) Kenny/ul Urine Nitrite (NEGATIVE) Urine Bilirubin (NEGATIVE) Urine Urobilinogen (0-1) mg/dL Ur Leukocyte Esterase (NEGATIVE) Urine WBC (Auto) (0-5) /HPF Urine RBC (Auto) (0-2) /HPF U Epithel Cells (Auto) (FEW) /HPF Urine Bacteria (Auto) (NEGATIVE) /HPF Urine Culture Reflexed (NO) Urine Glucose (NEGATIVE) mg/dL - Progress Progress Note: 07/10/18 19:37 IV NORMAL SALINE 50ML/HR, HYDRALAZINE 10MG IV, BLOOD PRESSURE IMPROVED TO BP 149 /74, ROCEPHIN 1GM IVPB FOR U/A WITH WBC-6-10 Counseled pt/family regarding: lab results, diagnosis, need for follow-up - Departure Departure Disposition: Home Clinical Impression: HYPERTENSION, URINARY TRACT INFECTION Condition: Stable Critical Care Time: No Referrals: KRISTOPHER CASEY MD [Primary Care Provider] - Additional Instructions: CONTINUE ALL CURRENT MEDICATIONS DIRECTED. ANTIBIOTIC KEFLEX SUSPENSION 250MG/5ML, TAKE 7ML EVERY 8 HOURS FOR 10 DAYS. FOLLOWUP WITH YOUR PRIMARY CARE PROVIDER FOR EVALUATION OF YOUR BLOOD PRESSURE. Prescriptions: Cephalexin 250 mg/5 ml Susp [Keflex 250 mg/5 ml Susp] 7 ml PO TID #200 bottle
[2018-07-10 17:37] LABS: INR 0.99 (0.8-3.0); PROTIME 11.5 SECONDS (9.95-12.35)
[2018-07-10 17:42] LABS: ALBUMIN 4.4 g/dL (3.5-5.0); ALKALINE PHOSPHATASE 60 U/L (38-126); ANION GAP 10.1 MEQ/L (5-15); BLOOD UREA NITROGEN 20 mg/dL (7-17); CHLORIDE 108 mmol/L (98-107); Calcium 9.3 mg/dL (8.4-10.2); Carbon Dioxide 25 mmol/L (22-30); Glucose 92 mg/dL (74-106); SGOT/AST 41 U/L (14-36); SGPT/ALT 16 U/L (0-35); SODIUM 139 mmol/L (137-145); Total Protein 8.2 g/dL (6.3-8.2)
[2018-07-10 17:43] LABS: Potassium 4.8 mmol/L (3.5-5.1)
[2018-07-10 17:54] LABS: Appearance CLEAR (CLEAR); Bacteria RARE /HPF (NEGATIVE); Bilirubin NEGATIVE (NEGATIVE); Blood NEGATIVE Ery/ul (0-5); Epithelial Cells RARE /HPF (FEW); Glucose NEGATIVE (NEGATIVE); Ketones NEGATIVE (NEGATIVE); Leukocyte Esterase TRACE (NEGATIVE); Nitrite NEGATIVE (NEGATIVE); Protein,Urine Dip NEGATIVE (Negative); Specific Gravity 1.006 (1.005-1.025); Urobilinogen NEGATIVE mg/dL (0-1)
[2018-07-10] MEDS ORDERED: ROCEPHIN 1 Gm-D5w 50 ml Bag** 1 G/50 ML IVPB IV STA (18:12)
[2018-07-10] MEDS ORDERED: ROCEPHIN 1 Gm-D5w 50 ml Bag** 1 G/50 ML IVPB IV ONE (18:14)
[2018-07-10 20:06] VITALS: BP 153/73; PULSE 60; O2SAT 98
--- NOTE | 2018-07-10 21:49 | XRAY ---
Indication: Dyspnea. Comparison: August 29, 2017. Portable chest demonstrates new minimal left base discoid atelectasis/scarring. Remaining heart, lungs, and bony thorax normal.
== END 2018-07-10 20:14 | disposition home or self-care (01) ==
LOC: ED 16:22
DX: I10 Essential (primary) hypertension (principal); N39.0 Urinary tract infection, site not specified; G70.00 Myasthenia gravis without (acute) exacerbation; Z79.899 Other long term (current) drug therapy
CPT/HCPCS: 36000; 36415; 71045; 80053; 81001; 83735; 84484; 85025; 85610; 96360; 96361; 96365; 96374; 99284; J0360; J0696

== ENCOUNTER 2019-09-10 18:21 | Emergency (ER) | payer MEDICARE ==
--- NOTE | 2019-09-10 18:50 | ERPHSYRPT ---
- History of Present Illness Time Seen by Provider: 09/10/19 18:38 Source: patient Exam Limitations: no limitations Patient Subjective Stated Complaint: Lower left leg pain Triage Nursing Assessment: Patient ambulated back to ED and transferred self to bed. Patient A+O X3. Patient's skin pink, warm and dry. patient complains of left lower leg pain for the past couple of days. Patient states she only has pain when bearing weight. Patient has swelling to left lower leg. Patient states she noticed the swelling after mowing her yard. Patient denies injury to leg. Strong pulses noted to left leg. Physician History: 74 yo wf w pain/edema L calf x2 days. Pt denies injury/dyspnea/chest pain/ fever. She has a h/o LUE DVT but is not on an anticoagulant at present. Method of Injury: unknown Occurred: days ago (2) Quality: other Severity of Pain-Max: moderate Severity of Pain-Current: mild Lower Extremities Pain: leg: left Modifying Factors: Improves With: movement Associated Symptoms: none Allergies/Adverse Reactions: diltiazem HCl [From Cardizem] Allergy (Intermediate, Verified 09/10/19 18:31) Rash Sulfa (Sulfonamide Antibiotics) [Sulfa(Sulfonamide Antibiotics)] Allergy ( Intermediate, Verified 09/10/19 18:31) NUMBESS TO FEET stated having numbness in hands and feet betamethasone sodium phosphate [From Celestone] Allergy (Mild, Verified 18:31) IRREGULAR HEARTRATE Tetanus Vaccines and Toxoid [Tetanus] Allergy (Mild, Verified 09/10/19 18:31) Swelling hydrocodone bitartrate [From Vicodin] Adverse Reaction (Intermediate, Verified 09/10/19 18:31) Nausea and Vomiting morphine Adverse Reaction (Intermediate, Verified 09/10/19 18:31) Itching betamethasone [From Celestone] Adverse Reaction (Mild, Verified 09/10/19 18:31) Irregular Heart Beat epinephrine Adverse Reaction (Mild, Verified 09/10/19 18:31) Rapid Heart Beat PPD Allergy (Mild, Uncoded 09/10/19 18:31) Swelling Home Medications: Pyridostigmine [place] [Mestinon] 60 mg PO TID 05/21/14 [History] Lansoprazole [Prevacid] 30 mg PO DAILY 08/20/14 [History] Verapamil HCl Sr 180 mg [Isoptin Sr 180Mg] 180 mg PO DAILY 08/20/14 [ History] Hx Tetanus, Diphtheria Vaccination/Date Given: No Hx Influenza Vaccination/Date Given: Yes Hx Pneumococcal Vaccination/Date Given: No Immunizations Up to Date: Yes Travel Risk - International Travel Have you traveled outside of the country in past 3 weeks: No Have you or anyone close to you been diagnosed with or: No Do your reside in a community with a known COVID-19 case?: Yes If Yes where:: [facility] - Coronavirus Screening Has patient experienced Coronavirus symptoms: No - Review of Systems Constitutional: No Symptoms Eyes: No Symptoms Ears, Nose, & Throat: No Symptoms Respiratory: No Symptoms Cardiac: No Symptoms Genitourinary Symptoms: No Symptoms Skin: No Symptoms Neurological: No Symptoms Psychological: No Symptoms Endocrine: No Symptoms Hematologic/Lymphatic: No Symptoms Immunological/Allergic: No Symptoms - Past Medical History Pertinent Past Medical History: Yes Neurological History: Other ENT History: No Pertinent History Cardiac History: Arrhythmia, Other Respiratory History: No Pertinent History, Other Endocrine Medical History: No Pertinent History Musculoskeletal History: Other GI Medical History: No Pertinent History History: No Pertinent History Psycho-Social History: No Pertinent History Female Reproductive Disorders: No Pertinent History Other Medical History: MUSCULAR DYSTROPHY, svt, heart murmur - Past Surgical History Past Surgical History: Yes Neuro Surgical History: No Pertinent History Cardiac: No Pertinent History Respiratory: No Pertinent History Gastrointestinal: No Pertinent History Genitourinary: No Pertinent History Musculoskeletal: No Pertinent History Female Surgical History: No Pertinent History Other Surgical History: GLAND DRAINED IN NECK AN , Left eye sugery May 2019 - Social History Smoking Status: Never smoker Exposure to second hand smoke: No Drug Use: none Patient Lives Alone: Yes Significant Family History: no pertinent family hx - Female History Hx Now: No - Nursing Vital Signs Nursing Vital Signs: Initial Vital Signs Temperature 98.2 F 09/10/19 18:34 Pulse Rate 66 09/10/19 18:34 Respiratory Rate 18 09/10/19 18:34 Blood Pressure 168/69 09/10/19 18:34 O2 Sat by Pulse Oximetry 100 09/10/19 18:34 Pain Scale Pain Intensity 0 - Physical Exam General Appearance: no apparent distress Eyes, Ears, Nose, Throat Exam: normal ENT inspection, TMs normal, pharynx normal Neck Exam: normal inspection, non-tender, supple, full range of motion, No Brudzinski, No Kernig's Cardiovascular/Respiratory Exam: normal breath sounds, regular rate/rhythm, heart sounds normal Gastrointestinal/Abdominal Exam: non-tender, soft Back Exam: normal inspection, normal range of motion Hips Exam: left: non-tender Legs Exam: left leg: soft tissue tenderness, swelling Knees Exam: bilateral knee: non-tender, normal inspection, normal range of motion, no evidence of injury Ankle Exam: bilateral ankle: non-tender, normal inspection, normal range of motion, no evidence of injury Foot Exam: bilateral foot: non-tender, normal inspection, normal range of motion , no evidence of injury DTR - Lower Extremities Exam: knee (R): 2+, knee (L): 2+ Neuro/Tendon Exam: normal sensation, normal motor functions, normal tendon functions, responds to pain, No no evidence tendon injury, No motor deficit Mental Status Exam: alert, oriented x 3, cooperative Skin Exam: normal color, warm, dry SpO2 Interpretation: normal SpO2: 100 O2 Delivery: Room Air Ordered Tests: Active Orders 24 hr Category Date Time Status VENOUS UNILAT/LIMITED EXTREMIT [US] Stat Exams 09/10/19 Ordered - Progress Progress: unchanged Progress Note: 09/10/19 20:16 LLE US neg per tech 09/10/19 20:17 Pt refuses po/IM pain meds Counseled pt/family regarding: need for follow-up, rad results - Departure Departure Disposition: Home Clinical Impression: Strain of left calf muscle Condition: Stable Critical Care Time: No Referrals: KRISTOPHER CASEY MD [Primary Care Provider] - Instructions: Lower Extremity Muscle Strain Additional Instructions: Rest/Heat/Massage/Elevation Follow up with your family MD as needed
[2019-09-10 19:35] VITALS: BP 171/77; PULSE 64
[2019-09-10 20:20] VITALS: O2SAT 100
--- NOTE | 2019-09-10 20:58 | XRAY ---
Indication: Left leg swelling. Two-dimensional sonogram and color Doppler imaging of the major venous vessels of the left leg was performed. Comparison: None No thrombus seen in the examined deep venous vessels of the left leg including greater saphenous vein. Veins demonstrate normal compressibility. Venous waveforms are normal with and without augmentation. Impression: Left leg negative for DVT.
== END 2019-09-10 20:27 | disposition home or self-care (01) ==
LOC: ED 18:21
DX: S86.112A Strain of other muscle(s) and tendon(s) of posterior muscle group at lower leg level, left leg, initial encounter (principal); M79.662 Pain in left lower leg; M79.89 Other specified soft tissue disorders; Z86.718 Personal history of other venous thrombosis and embolism; Z79.899 Other long term (current) drug therapy; X50.0XXA Overexertion from strenuous movement or load, initial encounter
CPT/HCPCS: 93971; 99283

== ENCOUNTER 2020-07-24 10:57 | Emergency (ER) | payer MEDICARE ==
[2020-07-24 11:37] LABS: Absolute Neutrophil Ct (ANC) 2.95 (1.4-6.9); BASOPHIL % 0.2 % (0.0-0.4); Basophil (Absolute #) 0.01 (0-0.4); Eosinophil % 1.8 % (0.00-5.0); Eosinophil (Absolute #) 0.09 (0-0.5); Hemoglobin 13.8 gm/dl (12.0-16.0); Lymphocyte (Absolute #) 1.63 (1.0-4.6); Lymphocytes % 32.4 % (24.0-44.0); Mean Cell Volume 96.2 fl (78-100); Mean Corpuscular Hemoglobin 30.9 pg (26-32); Mean Corpuscular Hgb Concent. 32.1 g/dl (32-36); Mean Platelet Volume 10.1 fl (7.5-11.0); Monocyte (Absolute #) 0.35 (0.0-1.3); Neutrophil % 58.6 % (36.0-66.0); Platelet Count 203 K/mm3 (150-450); Red Blood Count 4.47 M/mm3 (4.1-5.4); Red Cell Distribution Width 13.3 % (11.5-14.0)
[2020-07-24 11:43] LABS: INR 0.97 (0.8-3.0)
--- NOTE | 2020-07-24 11:43 | ERPHSYRPT ---
- History of Present Illness Source: patient Patient Subjective Stated Complaint: PT sates "I am not sure what is going on. I am shakey, I do not feel right and the right side of my neck is swollen." Triage Nursing Assessment: PT presented alert and oriented X 3, skin pwd. Pt ambulates with an upright steady gait, able to speak in rapid full sentences pt trembling, anxous. Pt in no apparent respiratory distress. Physician History: 74 yo wf w palpitations x 4hr. Pt denies CP/dyspnea/diaphoresis/N/V/diarrhea/melena/hematochezia. Pt has a h/o SVT. Timing/Duration: today (4hrs) Activities at Onset: rest Quality: other (No pain) Chest Pain Radiation: no radiation Severity of Pain-Max: none Severity of Pain-Current: none Modifying Factors: Improves With: nothing Nitro Today/Relief: provided by EMS Aspirin Treatment Today: no aspirin today Associated Symptoms: No nausea, No vomiting, No abdominal pain, No shortness of breath, No heartburn, No diaphoresis, No cough, No chills, No chest pain, No fever, No headaches, No loss of appetite, No malaise, No rash, No syncope, No seizure, No weakness Prior Chest Pain/Cardiac Workup: no prior chest pain Allergies/Adverse Reactions: diltiazem HCl [From Cardizem] Allergy (Intermediate, Verified 09/10/19 18:31) Rash Sulfa (Sulfonamide Antibiotics) [Sulfa(Sulfonamide Antibiotics)] Allergy (Intermediate, Verified 09/10/19 18:31) NUMBESS TO FEET stated having numbness in hands and feet betamethasone sodium phosphate [From Celestone] Allergy (Mild, Verified 09/10/19 18:31) IRREGULAR HEARTRATE Tetanus Vaccines and Toxoid [Tetanus] Allergy (Mild, Verified 09/10/19 18:31) Swelling hydrocodone bitartrate [From Vicodin] Adverse Reaction (Intermediate, Verified 09/10/19 18:31) Nausea and Vomiting morphine Adverse Reaction (Intermediate, Verified 09/10/19 18:31) Itching betamethasone [From Celestone] Adverse Reaction (Mild, Verified 09/10/19 18:31) Irregular Heart Beat epinephrine Adverse Reaction (Mild, Verified 09/10/19 18:31) Rapid Heart Beat PPD Allergy (Mild, Uncoded 09/10/19 18:31) Swelling Home Medications: Lansoprazole [Prevacid] 30 mg PO DAILY 08/20/14 [History] Verapamil HCl Sr 180 mg [Isoptin Sr 180Mg] 180 mg PO DAILY 08/20/14 [History] Ergocalciferol (Vitamin D2) [Vitamin D] 50,000 unit PO DAILY 07/24/20 [History] Hx Tetanus, Diphtheria Vaccination/Date Given: No Hx Influenza Vaccination/Date Given: Yes Hx Pneumococcal Vaccination/Date Given: No Immunizations Up to Date: Yes Travel Risk - International Travel Have you traveled outside of the country in past 3 weeks: No - Coronavirus Screening Are you exhibiting any of the following symptoms?: No Close contact with a COVID-19 positive Pt in past 14-21 Days: No - Vaccine Status Have you recieved a Covid-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: Yes Processing Operator: Moderna - Vaccination Dates Date of 2cond Vaccination (if applicable): 06/23/2020 - Review of Systems Constitutional: No Symptoms Eyes: No Symptoms Ears, Nose, & Throat: No Symptoms Respiratory: No Symptoms Cardiac: No Symptoms Abdominal/Gastrointestinal: No Symptoms Genitourinary Symptoms: No Symptoms Musculoskeletal: No Symptoms Skin: No Symptoms Neurological: No Symptoms Psychological: No Symptoms Endocrine: No Symptoms Hematologic/Lymphatic: No Symptoms Immunological/Allergic: No Symptoms - Past Medical History Pertinent Past Medical History: Yes Neurological History: Other ENT History: No Pertinent History Cardiac History: Arrhythmia, Other Respiratory History: No Pertinent History, Other Endocrine Medical History: No Pertinent History Musculoskeletal History: Other GI Medical History: No Pertinent History History: No Pertinent History Psycho-Social History: No Pertinent History Female Reproductive Disorders: No Pertinent History Other Medical History: MUSCULAR DYSTROPHY, svt, heart murmur - Past Surgical History Past Surgical History: Yes Neuro Surgical History: No Pertinent History Cardiac: No Pertinent History Respiratory: No Pertinent History Gastrointestinal: No Pertinent History Genitourinary: No Pertinent History Musculoskeletal: No Pertinent History Female Surgical History: No Pertinent History Other Surgical History: GLAND DRAINED IN NECK AN INFANT, Left eye sugery May 2019 - Social History Smoking Status: Never smoker Exposure to second hand smoke: No Drug Use: none Patient Lives Alone: Yes Significant Family History: no pertinent family hx - Nursing Vital Signs Nursing Vital Signs: Initial Vital Signs Temperature 97.8 F 07/24/20 10:58 Pulse Rate 80 07/24/20 10:58 Respiratory Rate 22 07/24/20 10:58 Blood Pressure 185/87 07/24/20 10:58 O2 Sat by Pulse Oximetry 100 07/24/20 10:58 Pain Scale Pain Intensity 0 - Physical Exam General Appearance: no apparent distress, anxiety Eye Exam: PERRL/EOMI, eyes nml inspection Ears, Nose, Throat Exam: normal ENT inspection, TMs normal, pharynx normal, moist mucous membranes Neck Exam: normal inspection, non-tender, supple, full range of motion, No meningismus, No mass, No Brudzinski, No Kernig's Respiratory Exam: normal breath sounds, lungs clear, airway intact Cardiovascular Exam: regular rate/rhythm, No murmur Gastrointestinal/Abdomen Exam: soft, normal bowel sounds, No tenderness Back Exam: normal inspection, normal range of motion, No CVA tenderness Extremity Exam: normal inspection, normal range of motion Neurologic Exam: alert, oriented x 3, cooperative, geriatric social worker II-XII nml as tested, normal mood/affect, nml cerebellar function, nml station & gait, sensation nml, No motor deficits, No sensory deficit Skin Exam: normal color Lymphatic Exam: No adenopathy SpO2 Interpretation: normal SpO2: 100 - Course EKG Interpreted by Me: RATE (NSR/R73/Normal QT-QTc/PAC's/No ST-T wave changes) Rhythm Strip: Rate (NSR/PAC's/Normal QT-QTc/Poor R wave progression) - Radiology Exams Chest X-ray Interpretation: Discussed w/ radiologist (CXR neg per Rad) Ordered Tests: Active Orders 24 hr Category Date Time Status EKG-ER Only STAT Care 07/24/20 11:21 Completed CHEST 1 VIEW (PORTABLE) Stat Exams 07/24/20 11:37 Completed CBC W DIFF Stat Lab 07/24/20 11:34 Completed CMP Stat Lab 07/24/20 11:34 Completed MAGNESIUM Stat Lab 07/24/20 11:34 Completed PROTIME WITH INR Stat Lab 07/24/20 11:34 Completed PTT Stat Lab 07/24/20 11:34 Completed TROPONIN Q3H Lab 07/24/20 11:34 Completed TROPONIN Q3H Lab 07/24/20 13:45 Completed Lab/Rad Data: Laboratory Result Diagrams 07/24/20 11:34 07/24/20 11:34 Laboratory Results 07/24/20 07/24/20 07/24/20 Range/Units 13:45 11:34 11:34 WBC (4.0-10.5) K/mm3 RBC (4.1-5.4) M/mm3 Hgb (12.0-16.0) gm/dl Hct (35-47) % MCV (78-100) fl MCH (26-32) pg MCHC (32-36) g/dl RDW (11.5-14.0) % Plt Count (150-450) K/mm3 MPV (7.5-11.0) fl Gran % (36.0-66.0) % Eos # (Auto) (0-0.5) Absolute Lymphs (auto) (1.0-4.6) Absolute Monos (auto) (0.0-1.3) Lymphocytes % (24.0-44.0) % Monocytes % (0.0-12.0) % Eosinophils % (0.00-5.0) % Basophils % (0.0-0.4) % Absolute Granulocytes (1.4-6.9) Basophils # (0-0.4) PT 11.0 (9.95-12.35) SECONDS INR 0.97 (0.8-3.0) APTT 24.7 L (25.3-37.0) SECONDS Sodium (137-145) mmol/L Potassium (3.5-5.1) mmol/L Chloride (98-107) mmol/L Carbon Dioxide (22-30) mmol/L Anion Gap (5-15) MEQ/L BUN (7-17) mg/dL Creatinine (0.52-1.04) mg/dL Estimated GFR ML/MIN Glucose (74-106) mg/dL Calcium (8.4-10.2) mg/dL Magnesium (1.6-2.3) mg/dL Total Bilirubin (0.2-1.3) mg/dL AST (14-36) U/L ALT (0-35) U/L Alkaline Phosphatase (38-126) U/L Troponin I < 0.012 0.021 (0.000-0.034) ng/mL Serum Total Protein (6.3-8.2) g/dL Albumin (3.5-5.0) g/dL 07/24/20 07/24/20 Range/Units 11:34 11:34 WBC 5.0 (4.0-10.5) K/mm3 RBC 4.47 (4.1-5.4) M/mm3 Hgb 13.8 (12.0-16.0) gm/dl Hct 43.0 (35-47) % MCV 96.2 (78-100) fl MCH 30.9 (26-32) pg MCHC 32.1 (32-36) g/dl RDW 13.3 (11.5-14.0) % Plt Count 203 (150-450) K/mm3 MPV 10.1 (7.5-11.0) fl Gran % 58.6 (36.0-66.0) % Eos # (Auto) 0.09 (0-0.5) Absolute Lymphs (auto) 1.63 (1.0-4.6) Absolute Monos (auto) 0.35 (0.0-1.3) Lymphocytes % 32.4 (24.0-44.0) % Monocytes % 7.0 (0.0-12.0) % Eosinophils % 1.8 (0.00-5.0) % Basophils % 0.2 (0.0-0.4) % Absolute Granulocytes 2.95 (1.4-6.9) Basophils # 0.01 (0-0.4) PT (9.95-12.35) SECONDS INR (0.8-3.0) APTT (25.3-37.0) SECONDS Sodium 137 (137-145) mmol/L Potassium 4.8 (3.5-5.1) mmol/L Chloride 102 (98-107) mmol/L Carbon Dioxide 23 (22-30) mmol/L Anion Gap 17.2 H (5-15) MEQ/L BUN 27 H (7-17) mg/dL Creatinine 0.99 (0.52-1.04) mg/dL Estimated GFR 58.3 ML/MIN Glucose 109 H (74-106) mg/dL Calcium 9.9 (8.4-10.2) mg/dL Magnesium 2.3 (1.6-2.3) mg/dL Total Bilirubin 0.60 (0.2-1.3) mg/dL AST 36 (14-36) U/L ALT 17 (0-35) U/L Alkaline Phosphatase 60 (38-126) U/L Troponin I (0.000-0.034) ng/mL Serum Total Protein 8.4 H (6.3-8.2) g/dL Albumin 4.7 (3.5-5.0) g/dL - Progress Progress: improved Progress Note: 07/24/20 14:27 No evidence of malignant arrythmia in ER Pt stable wo chest pain or shortness of breath in ER 07/24/20 16:43 Counseled pt/family regarding: lab results, diagnosis, need for follow-up, rad results - Departure Departure Disposition: Home Clinical Impression: Palpitations Condition: Stable Critical Care Time: No Referrals: KRISTOPHER CASEY MD [Primary Care Provider] - Instructions: Arrhythmias (DC), Palpitations (DC) Additional Instructions: Follow up with your family MD or 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
[2020-07-24 11:46] LABS: PTT 24.7 SECONDS (25.3-37.0)
[2020-07-24 11:50] LABS: ALBUMIN 4.7 g/dL (3.5-5.0); ANION GAP 17.2 MEQ/L (5-15); BILIRUBIN,TOTAL 0.6 mg/dL (0.2-1.3); Calcium 9.9 mg/dL (8.4-10.2); Creatinine 1 0.99 mg/dL (0.52-1.04); EST GLOMERULAR FILTRATION RATE 58.3 ML/MIN; MAGNESIUM 2.3 mg/dL (1.6-2.3); Potassium 4.8 mmol/L (3.5-5.1); Total Protein 8.4 g/dL (6.3-8.2)
--- NOTE | 2020-07-24 11:57 | XRAY ---
Indication: Palpitations and dizziness. Comparison: July 10, 2018. Portable chest demonstrates normal heart and lungs. Bony thorax intact with mild degenerative changes. No new/acute findings.
[2020-07-24 13:05] VITALS: PULSE 56
[2020-07-24 14:11] VITALS: BP 154/74
[2020-07-24 14:30] VITALS: O2SAT 100
== END 2020-07-24 14:39 | disposition home or self-care (01) ==
LOC: ED 10:57
DX: R00.2 Palpitations (principal)
CPT/HCPCS: 36000; 36415; 71045; 80053; 83735; 84484; 85025; 85610; 85730; 93005; 99284

== ENCOUNTER 2020-08-26 13:03 | Emergency (ER) | payer MEDICARE ==
[2020-08-26 14:01] LABS: Absolute Neutrophil Ct (ANC) 2.66 (1.4-6.9); Basophil (Absolute #) 0 (0-0.4); Eosinophil % 1.9 % (0.00-5.0); Eosinophil (Absolute #) 0.08 (0-0.5); Hematocrit 41.7 % (35-47); Hemoglobin 13.2 gm/dl (12.0-16.0); Lymphocyte (Absolute #) 1.13 (1.0-4.6); Lymphocytes % 27.3 % (24.0-44.0); Mean Cell Volume 96.8 fl (78-100); Mean Corpuscular Hemoglobin 30.6 pg (26-32); Mean Corpuscular Hgb Concent. 31.7 g/dl (32-36); Mean Platelet Volume 10.1 fl (7.5-11.0); Monocyte (Absolute #) 0.27 (0.0-1.3); Monocytes % 6.5 % (0.0-12.0); Neutrophil % 64.3 % (36.0-66.0); Platelet Count 187 K/mm3 (150-450); Red Blood Count 4.31 M/mm3 (4.1-5.4); Red Cell Distribution Width 13.2 % (11.5-14.0); White Blood Count 4.1 K/mm3 (4.0-10.5)
[2020-08-26 14:13] VITALS: BP 150/79; PULSE 71; O2SAT 98
[2020-08-26 14:25] LABS: ALBUMIN 4.5 g/dL (3.5-5.0); ALKALINE PHOSPHATASE 58 U/L (38-126); ANION GAP 14.9 MEQ/L (5-15); BLOOD UREA NITROGEN 28 mg/dL (7-17); CHLORIDE 105 mmol/L (98-107); Calcium 9.4 mg/dL (8.4-10.2); Carbon Dioxide 20 mmol/L (22-30); Creatinine 1 1.19 mg/dL (0.52-1.04); Glucose 107 mg/dL (74-106); MAGNESIUM 2.1 mg/dL (1.6-2.3); NT PRO BNP 226 pg/mL (0-1800); Potassium 3.9 mmol/L (3.5-5.1); SGOT/AST 36 U/L (14-36); SGPT/ALT 15 U/L (0-35); SODIUM 136 mmol/L (137-145); TROPONIN < 0.012 ng/mL (0.000-0.034); Total Protein 7.8 g/dL (6.3-8.2)
--- NOTE | 2020-08-26 14:35 | ERPHSYRPT ---
- History of Present Illness Time Seen by Provider: 08/26/20 14:32 Source: patient Exam Limitations: no limitations Patient Subjective Stated Complaint: pt here for palpitaions today,no chest pain, she states this has happened before Triage Nursing Assessment: pt alert, resp easy, anxious, skin w/d/p, no edema noted . Physician History: pt here for palpitaions today,no chest pain, she states this has happened before has a history of hypertension and premature ventricular contraction. Recently patient has seen cardiology service and was put on a Holter monitor for 24 hours but results are pending. She denies any other symptoms. Timing/Duration: today Activities at Onset: activity Severity of Pain-Max: none Severity of Pain-Current: none Modifying Factors: Improves With: nothing Nitro Today/Relief: no nitro taken today Aspirin Treatment Today: no aspirin today Associated Symptoms: denies symptoms Prior Chest Pain/Cardiac Workup: no prior chest pain Allergies/Adverse Reactions: diltiazem HCl [From Cardizem] Allergy (Intermediate, Verified 09/10/19 18:31) Rash Sulfa (Sulfonamide Antibiotics) [Sulfa(Sulfonamide Antibiotics)] Allergy (Intermediate, Verified 09/10/19 18:31) NUMBESS TO FEET stated having numbness in hands and feet betamethasone sodium phosphate [From Celestone] Allergy (Mild, Verified 09/10/19 18:31) IRREGULAR HEARTRATE Tetanus Vaccines and Toxoid [Tetanus] Allergy (Mild, Verified 09/10/19 18:31) Swelling hydrocodone bitartrate [From Vicodin] Adverse Reaction (Intermediate, Verified 09/10/19 18:31) Nausea and Vomiting morphine Adverse Reaction (Intermediate, Verified 09/10/19 18:31) Itching betamethasone [From Celestone] Adverse Reaction (Mild, Verified 09/10/19 18:31) Irregular Heart Beat epinephrine Adverse Reaction (Mild, Verified 09/10/19 18:31) Rapid Heart Beat PPD Allergy (Mild, Uncoded 09/10/19 18:31) Swelling Home Medications: Lansoprazole [Prevacid] 30 mg PO DAILY 08/20/14 [History] Verapamil HCl Sr 180 mg [Isoptin Sr 180Mg] 180 mg PO DAILY 08/20/14 [History] Ergocalciferol (Vitamin D2) [Vitamin D] 50,000 unit PO DAILY 07/24/20 [History] Aspirin 81 gm Chew [Baby Aspirin 81 mg Chew] 1 ea DAILY 08/26/20 [History] Hx Tetanus, Diphtheria Vaccination/Date Given: No Hx Influenza Vaccination/Date Given: Yes Hx Pneumococcal Vaccination/Date Given: No Immunizations Up to Date: Yes Travel Risk - International Travel Have you traveled outside of the country in past 3 weeks: No - Coronavirus Screening Are you exhibiting any of the following symptoms?: No - Vaccine Status Have you recieved a Covid-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: Yes Mortgage Originator: Moderna - Vaccination Dates Date of 2cond Vaccination (if applicable): june - Review of Systems Constitutional: No Fever, No Chills Eyes: No Symptoms Ears, Nose, & Throat: No Symptoms Respiratory: No Cough, No Dyspnea Cardiac: Palpitations, No Chest Pain, No Edema, No Syncope Abdominal/Gastrointestinal: No Abdominal Pain, No Nausea, No Vomiting, No Diarrhea Genitourinary Symptoms: No Dysuria Musculoskeletal: No Back Pain, No Neck Pain Skin: No Rash Neurological: No Dizziness, No Focal Weakness, No Sensory Changes Psychological: No Symptoms Endocrine: No Symptoms All Other Systems: Reviewed and Negative - Past Medical History Pertinent Past Medical History: Yes Neurological History: Other ENT History: No Pertinent History Cardiac History: Arrhythmia, Other Respiratory History: No Pertinent History, Other Endocrine Medical History: No Pertinent History Musculoskeletal History: Other GI Medical History: No Pertinent History History: No Pertinent History Psycho-Social History: No Pertinent History Female Reproductive Disorders: No Pertinent History Other Medical History: MUSCULAR DYSTROPHY, svt, heart murmur - Past Surgical History Past Surgical History: Yes Neuro Surgical History: No Pertinent History Cardiac: No Pertinent History Respiratory: No Pertinent History Gastrointestinal: No Pertinent History Genitourinary: No Pertinent History Musculoskeletal: No Pertinent History Female Surgical History: No Pertinent History Other Surgical History: GLAND DRAINED IN NECK AN INFANT, Left eye sugery May 2019 - Social History Smoking Status: Never smoker Exposure to second hand smoke: No Drug Use: none Patient Lives Alone: Yes Significant Family History: no pertinent family hx - Female History Hx Last Menstrual Period: post Hx Now: Yes - Nursing Vital Signs Nursing Vital Signs: Initial Vital Signs Temperature 98.0 F 08/26/20 13:05 Pulse Rate 77 08/26/20 13:05 Respiratory Rate 16 08/26/20 13:05 Blood Pressure 165/100 08/26/20 13:05 O2 Sat by Pulse Oximetry 100 08/26/20 13:05 Pain Scale Pain Intensity 0 - Physical Exam General Appearance: no apparent distress, alert Eye Exam: PERRL/EOMI, eyes nml inspection Ears, Nose, Throat Exam: normal ENT inspection, moist mucous membranes Neck Exam: normal inspection, non-tender, supple Respiratory Exam: normal breath sounds, lungs clear, No respiratory distress Cardiovascular Exam: regular rate/rhythm, normal heart sounds, No edema Gastrointestinal/Abdomen Exam: soft, No tenderness, No mass Back Exam: normal inspection, No CVA tenderness, No vertebral tenderness Extremity Exam: normal inspection, normal range of motion Neurologic Exam: alert, oriented x 3, cooperative, normal mood/affect, nml cerebellar function, sensation nml, No motor deficits Skin Exam: normal color, warm, dry Lymphatic Exam: No adenopathy SpO2: 98 - Course Nursing assessment & vital signs reviewed: Yes EKG Interpreted by Me: Sinus Rhythm Ordered Tests: Active Orders 24 hr Category Date Time Status CBC W DIFF Stat Lab 08/26/20 13:40 Completed CMP Stat Lab 08/26/20 13:40 Completed MAGNESIUM Stat Lab 08/26/20 13:40 Completed NT PRO BNP Stat Lab 08/26/20 13:40 Completed TROPONIN Stat Lab 08/26/20 13:40 Completed Lab/Rad Data: Laboratory Result Diagrams 08/26/20 13:40 08/26/20 13:40 Laboratory Results 08/26/20 08/26/20 Range/Units 13:40 13:40 WBC 4.1 (4.0-10.5) K/mm3 RBC 4.31 (4.1-5.4) M/mm3 Hgb 13.2 (12.0-16.0) gm/dl Hct 41.7 (35-47) % MCV 96.8 (78-100) fl MCH 30.6 (26-32) pg MCHC 31.7 L (32-36) g/dl RDW 13.2 (11.5-14.0) % Plt Count 187 (150-450) K/mm3 MPV 10.1 (7.5-11.0) fl Gran % 64.3 (36.0-66.0) % Eos # (Auto) 0.08 (0-0.5) Absolute Lymphs (auto) 1.13 (1.0-4.6) Absolute Monos (auto) 0.27 (0.0-1.3) Lymphocytes % 27.3 (24.0-44.0) % Monocytes % 6.5 (0.0-12.0) % Eosinophils % 1.9 (0.00-5.0) % Basophils % 0.0 (0.0-0.4) % Absolute Granulocytes 2.66 (1.4-6.9) Basophils # 0 (0-0.4) Sodium 136 L (137-145) mmol/L Potassium 3.9 (3.5-5.1) mmol/L Chloride 105 (98-107) mmol/L Carbon Dioxide 20 L (22-30) mmol/L Anion Gap 14.9 (5-15) MEQ/L BUN 28 H (7-17) mg/dL Creatinine 1.19 H (0.52-1.04) mg/dL Estimated GFR 47.0 ML/MIN Glucose 107 H (74-106) mg/dL Calcium 9.4 (8.4-10.2) mg/dL Magnesium 2.1 (1.6-2.3) mg/dL Total Bilirubin 0.60 (0.2-1.3) mg/dL AST 36 (14-36) U/L ALT 15 (0-35) U/L Alkaline Phosphatase 58 (38-126) U/L Troponin I < 0.012 (0.000-0.034) ng/mL NT-Pro-B Natriuret Pep 226 (0-1800) pg/mL Serum Total Protein 7.8 (6.3-8.2) g/dL Albumin 4.5 (3.5-5.0) g/dL - Progress Progress: improved Air Movement: good Blood Culture(s) Obtained: No Antibiotics given: No Counseled pt/family regarding: lab results, diagnosis, need for follow-up - Departure Departure Disposition: Home Clinical Impression: PVC (premature ventricular contraction), PAC (premature atrial contraction) Condition: Stable Critical Care Time: Yes Critical Care Time(excluding separately billable procedures): Critical 30-74 m ins Referrals: KRISTOPHER CASEY MD [Primary Care Provider] - Follow Up with PCP/3 days Instructions: Arrhythmias (DC), Palpitations (DC) Additional Instructions: Discharge/Care Plan CASSANDRA ABAD was seen on 08/26/20 in the Emergency Room. The patient was counseled regarding Diagnosis,Lab results, Imaging studies, need for follow up and when to return to the Emergency Room. Prescriptions given: Discharge Note I have spoken with the patient and/or caregivers. I have explained the patient's condition, diagnosis and treatment plan based on the information available to me at this time. I have answered the patient's and/or caregiver's questions and addressed any concerns. The patient and/or caregivers have as good understanding of the patient's diagnosis, condition and treatment plan as can be expected at this point. The vital signs have been stable. The patient's condition is stable and appropriate for discharge from the emergency department. The patient will pursue further outpatient evaluation with the primary care physician or other designated or consulting physician as outlined in the discharge instructions. The patient and/or caregivers are agreeable to this plan of care and follow-up instructions have been explained in detail. The patient and/or caregivers have received these instruction. The patient/and or caregivers are aware that any significant change in condition or worsening of symptoms should prompt an immediate return to this or the closest emergency department or call 911. CASSANDRA ABAD was seen on 08/26/20 n the Emergency Room. At that time you were treated for an emergent condition, during your visit Laboratory, Radiology and/or other procedures may have been ordered. It is very important that you follow-up with your Primary Care Physician KRISTOPHER CASEY within the next 24- 48 hours to review your Emergency Room visit and the final results of testing that was ordered. Some test results such as Urine Cultures, Blood Cultures, and other cultures if ordered will not be finalized for 24-48 hours. If you do not have a Primary Care Provider please call the medical records department at [phone] to obtain a copy of your results or you may sign into our patient portal to obtain these results by visiting us @ [email or web address] and completing the following steps: 1. Click on the Patient Portal link 2. Click the Patient Self Enrollment Link to complete the enrollment form and entering your 3. Once the enrollment form is completed you will receive an email with a temporary ID and password at the email address you provided. 4. Next choose a user name and password. Your user name must be at least 4 characters long and your password must be at least 4 characters long. 5. Choose a security question from the list and provide your answer to the question. If you already have signed into the Health Portal you may access your Health Care Information 04/11 by the following steps: 1. Login to our website @ [email or web address] 2. Enter your original user name and password. FAQS The [facility] Health Portal is an online tool that contains your Lab Results, Radiology Reports, Visit History, Discharge Instructions and Health Summary Lab and Radiology Results will not be available for 72 hours on the portal. The Portal is a secure site, passwords are encryted and URLs are re-written so they cannot be copied and pasted. You and authorized family members are the only ones who can access your Portal. Also there is a timeout feature that protects your information if you leave the Portal page open. If you have technical difficulty please use the Contact Us link on the page this will allow you to submit any questions you have regarding the Portal or you may contact the Medical Record Department at [phone].
== END 2020-08-26 15:15 | disposition home or self-care (01) ==
LOC: ED 13:03
DX: I49.3 Ventricular premature depolarization (principal); I49.1 Atrial premature depolarization; Z79.899 Other long term (current) drug therapy; I10 Essential (primary) hypertension
CPT/HCPCS: 36000; 36415; 80053; 83735; 83880; 84484; 85025; 99284; 99291

== ENCOUNTER 2020-11-03 17:02 | Emergency (ER) | payer MEDICARE ==
--- NOTE | 2020-11-03 17:08 | ERPHSYRPT ---
- History of Present Illness Time Seen by Provider: 11/03/20 17:08 Source: patient, family Exam Limitations: no limitations Physician History: This is a 75-year-old white female who has a history of PVCs and PACs in the past and presents with palpitations. 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 Beaver. She was a bit dizzy. Her checkout supervisor had told her if she becomes symptomatic to go to the emergency room to get an EKG. Apparently, she had mentioned to the nursing staff that she just wants a EKG only and does not want anything else done. She does not have chest pain. She does not have shortness of breath. She has no nausea vomiting. She has had other work-ups that has shown a normal work-up. She said that she wore a Holter monitor for 30 days the only thing they saw was PVCs and PACs. I explained to her that if she in fact did not want anything else other than an EKG we would have her sign a refusal of treatment and work-up. She was concerned that her insurance would not pay for the work-up if she left A. She had a fr iend/family member come into the room and patient now has decided on staying and having a complete work-up. I had told her that I could not guarantee that she did not have a emergent situation if I could not do a full work-up. Timing/Duration: today Activities at Onset: none Chest Pain Radiation: no radiation Severity of Pain-Max: none Severity of Pain-Current: none Nitro Today/Relief: no nitro taken today Aspirin Treatment Today: no aspirin today Associated Symptoms: other (Venous) Prior Chest Pain/Cardiac Workup: recently seen/treated, recent hospitalization Allergies/Adverse Reactions: diltiazem HCl [From Cardizem] Allergy (Intermediate, Verified 09/10/19 18:31) Rash Sulfa (Sulfonamide Antibiotics) [Sulfa(Sulfonamide Antibiotics)] Allergy (Intermediate, Verified 09/10/19 18:31) NUMBESS TO FEET stated having numbness in hands and feet betamethasone sodium phosphate [From Celestone] Allergy (Mild, Verified 09/10/19 18:31) IRREGULAR HEARTRATE Tetanus Vaccines and Toxoid [Tetanus] Allergy (Mild, Verified 09/10/19 18:31) Swelling hydrocodone bitartrate [From Vicodin] Adverse Reaction (Intermediate, Verified 09/10/19 18:31) Nausea and Vomiting morphine Adverse Reaction (Intermediate, Verified 09/10/19 18:31) Itching betamethasone [From Celestone] Adverse Reaction (Mild, Verified 09/10/19 18:31) Irregular Heart Beat epinephrine Adverse Reaction (Mild, Verified 09/10/19 18:31) Rapid Heart Beat PPD Allergy (Mild, Uncoded 09/10/19 18:31) Swelling Home Medications: Lansoprazole [Prevacid] 30 mg PO DAILY 08/20/14 [History] Verapamil HCl Sr 180 mg [Isoptin Sr 180Mg] 180 mg PO DAILY 08/20/14 [History] Ergocalciferol (Vitamin D2) [Vitamin D] 50,000 unit PO DAILY 07/24/20 [History] Aspirin 81 gm Chew [Baby Aspirin 81 mg Chew] 1 ea DAILY 08/26/20 [History] Hx Tetanus, Diphtheria Vaccination/Date Given: No Hx Influenza Vaccination/Date Given: Yes Hx Pneumococcal Vaccination/Date Given: No Travel Risk - International Travel Have you traveled outside of the country in past 3 weeks: No - Coronavirus Screening Are you exhibiting any of the following symptoms?: No Close contact with a COVID-19 positive Pt in past 14-21 Days: No - Vaccine Status Have you recieved a Covid-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: Yes Radiology Transporter: Moderna - Vaccination Dates Date of 2cond Vaccination (if applicable): june - Review of Systems Constitutional: No Symptoms Eyes: No Symptoms Ears, Nose, & Throat: No Symptoms Respiratory: No Symptoms Cardiac: No Symptoms Abdominal/Gastrointestinal: No Symptoms Genitourinary Symptoms: No Symptoms Musculoskeletal: No Symptoms Skin: No Symptoms Neurological: Dizziness Psychological: No Symptoms Endocrine: No Symptoms Hematologic/Lymphatic: No Symptoms Immunological/Allergic: No Symptoms All Other Systems: Reviewed and Negative - Past Medical History Pertinent Past Medical History: Yes Neurological History: Other ENT History: No Pertinent History Cardiac History: Arrhythmia, Other Respiratory History: No Pertinent History, Other Endocrine Medical History: No Pertinent History Musculoskeletal History: Other GI Medical History: No Pertinent History History: No Pertinent History Psycho-Social History: No Pertinent History Female Reproductive Disorders: No Pertinent History Other Medical History: MUSCULAR DYSTROPHY, svt, heart murmur - Past Surgical History Past Surgical History: Yes Neuro Surgical History: No Pertinent History Cardiac: No Pertinent History Respiratory: No Pertinent History Gastrointestinal: No Pertinent History Genitourinary: No Pertinent History Musculoskeletal: No Pertinent History Female Surgical History: No Pertinent History Other Surgical History: GLAND DRAINED IN NECK AN , Left eye sugery May 2019 - Social History Smoking Status: Never smoker Exposure to second hand smoke: No Drug Use: none Patient Lives Alone: Yes Significant Family History: no pertinent family hx - Nursing Vital Signs Nursing Vital Signs: Initial Vital Signs Temperature 98 F 11/03/20 17:08 Pulse Rate 72 11/03/20 17:08 Respiratory Rate 22 11/03/20 17:08 Blood Pressure 163/84 11/03/20 17:08 O2 Sat by Pulse Oximetry 100 11/03/20 17:08 Pain Scale Pain Intensity 0 - Physical Exam General Appearance: no apparent distress, alert, anxiety Eye Exam: PERRL/EOMI, eyes nml inspection Ears, Nose, Throat Exam: normal ENT inspection, moist mucous membranes Neck Exam: normal inspection, non-tender, supple, full range of motion Respiratory Exam: normal breath sounds, lungs clear, airway intact, No chest tenderness, No respiratory distress Cardiovascular Exam: regular rate/rhythm, normal heart sounds, normal peripheral pulses Gastrointestinal/Abdomen Exam: soft, normal bowel sounds, No tenderness Pelvic Exam: not done Rectal Exam: not done Back Exam: normal inspection, normal range of motion, No CVA tenderness, No vertebral tenderness Extremity Exam: normal inspection, normal range of motion, pelvis stable Neurologic Exam: alert, oriented x 3, cooperative, burial agent II-XII nml as tested, normal mood/affect, nml cerebellar function, nml station & gait, sensation nml Skin Exam: normal color, warm, dry Lymphatic Exam: No adenopathy SpO2 Interpretation: normal O2 Delivery: Room Air - Course Nursing assessment & vital signs reviewed: Yes EKG Interpreted by Me: RATE (77), A-fib, Left [place] Deviation, Non-specific ST Changes, Other (No acute ischemic changes on today's EKG. Fair to EKG dated 1520, there is new onset atrial fibrillation and nonspecific T wave abnormalities in the lateral leads.) Ordered Tests: Active Orders 24 hr Category Date Time Status Corporate Driver STAT Care 11/03/20 17:18 Active EKG-ER Only STAT Care 11/03/20 17:17 Active IV Insertion STAT Care 11/03/20 17:17 Active Pulse Oximetry (ED) STAT Care 11/03/20 17:17 Active CBC W DIFF Stat Lab 11/03/20 17:50 Completed CMP Stat Lab 11/03/20 17:50 Completed MAGNESIUM Stat Lab 11/03/20 17:50 Completed TROPONIN Q3H Lab 11/03/20 17:50 Completed TROPONIN Q3H Lab 11/03/20 20:30 Ordered TROPONIN Q3H Lab 11/03/20 23:30 Ordered TROPONIN Q3H Lab 11/04/20 02:30 Ordered TROPONIN Q3H Lab 11/04/20 05:30 Ordered UA W/RFX UR CULTURE Stat Lab 11/03/20 18:17 Completed Lab/Rad Data: Laboratory Result Diagrams 11/03/20 17:50 11/03/20 17:50 Laboratory Results 11/03/20 11/03/20 11/03/20 Range/Units 18:17 17:50 17:50 WBC (4.0-10.5) K/mm3 RBC (4.1-5.4) M/mm3 Hgb (12.0-16.0) gm/dl Hct (35-47) % MCV (78-100) fl MCH (26-32) pg MCHC (32-36) g/dl RDW (11.5-14.0) % Plt Count (150-450) K/mm3 MPV (7.5-11.0) fl Gran % (36.0-66.0) % Eos # (Auto) (0-0.5) Absolute Lymphs (auto) (1.0-4.6) Absolute Monos (auto) (0.0-1.3) Lymphocytes % (24.0-44.0) % Monocytes % (0.0-12.0) % Eosinophils % (0.00-5.0) % Basophils % (0.0-0.4) % Absolute Granulocytes (1.4-6.9) Basophils # (0-0.4) Sodium 137 (137-145) mmol/L Potassium 4.9 (3.5-5.1) mmol/L Chloride 103 (98-107) mmol/L Carbon Dioxide 24 (22-30) mmol/L Anion Gap 15.6 H (5-15) MEQ/L BUN 31 H (7-17) mg/dL Creatinine 1.53 H (0.52-1.04) mg/dL Estimated GFR 35.2 ML/MIN Glucose 126 H (74-106) mg/dL Calcium 9.2 (8.4-10.2) mg/dL Magnesium 2.3 (1.6-2.3) mg/dL Total Bilirubin 0.20 (0.2-1.3) mg/dL AST 29 (14-36) U/L ALT 14 (0-35) U/L Alkaline Phosphatase 57 (38-126) U/L Troponin I < 0.012 (0.000-0.034) ng/mL Serum Total Protein 7.5 (6.3-8.2) g/dL Albumin 4.3 (3.5-5.0) g/dL Urine Color YELLOW (YELLOW) Urine Appearance CLEAR (CLEAR) Urine pH 7.0 (5-6) Ur Specific Blackwell 1.011 (1.005-1.025) Urine Protein NEGATIVE (Negative) Urine Ketones NEGATIVE (NEGATIVE) Urine Blood NEGATIVE (0-5) Kenny/ul Urine Nitrite NEGATIVE (NEGATIVE) Urine Bilirubin NEGATIVE (NEGATIVE) Urine Urobilinogen NEGATIVE (0-1) mg/dL Ur Leukocyte Esterase NEGATIVE (NEGATIVE) Urine WBC (Auto) NONE (0-5) /HPF Urine RBC (Auto) NONE (0-2) /HPF U Epithel Cells (Auto) NONE (FEW) /HPF Urine Bacteria (Auto) NONE (NEGATIVE) /HPF Urine Mucus (Auto) SLIGHT (NEGATIVE) /HPF Urine Culture Reflexed NO (NO) Urine Glucose NEGATIVE (NEGATIVE) mg/dL 11/03/20 Range/Units 17:50 WBC 5.1 (4.0-10.5) K/mm3 RBC 3.94 L (4.1-5.4) M/mm3 Hgb 12.3 (12.0-16.0) gm/dl Hct 38.5 (35-47) % MCV 97.7 (78-100) fl MCH 31.2 (26-32) pg MCHC 31.9 L (32-36) g/dl RDW 13.4 (11.5-14.0) % Plt Count 194 (150-450) K/mm3 MPV 10.0 (7.5-11.0) fl Gran % 55.4 (36.0-66.0) % Eos # (Auto) 0.22 (0-0.5) Absolute Lymphs (auto) 1.55 (1.0-4.6) Absolute Monos (auto) 0.48 (0.0-1.3) Lymphocytes % 30.6 (24.0-44.0) % Monocytes % 9.5 (0.0-12.0) % Eosinophils % 4.3 (0.00-5.0) % Basophils % 0.2 (0.0-0.4) % Absolute Granulocytes 2.80 (1.4-6.9) Basophils # 0.01 (0-0.4) Sodium (137-145) mmol/L Potassium (3.5-5.1) mmol/L Chloride (98-107) mmol/L Carbon Dioxide (22-30) mmol/L Anion Gap (5-15) MEQ/L BUN (7-17) mg/dL Creatinine (0.52-1.04) mg/dL Estimated GFR ML/MIN Glucose (74-106) mg/dL Calcium (8.4-10.2) mg/dL Magnesium (1.6-2.3) mg/dL Total Bilirubin (0.2-1.3) mg/dL AST (14-36) U/L ALT (0-35) U/L Alkaline Phosphatase (38-126) U/L Troponin I (0.000-0.034) ng/mL Serum Total Protein (6.3-8.2) g/dL Albumin (3.5-5.0) g/dL Urine Color (YELLOW) Urine Appearance (CLEAR) Urine pH (5-6) Ur Specific Blackwell (1.005-1.025) Urine Protein (Negative) Urine Ketones (NEGATIVE) Urine Blood (0-5) Kenny/ul Urine Nitrite (NEGATIVE) Urine Bilirubin (NEGATIVE) Urine Urobilinogen (0-1) mg/dL Ur Leukocyte Esterase (NEGATIVE) Urine WBC (Auto) (0-5) /HPF Urine RBC (Auto) (0-2) /HPF U Epithel Cells (Auto) (FEW) /HPF Urine Bacteria (Auto) (NEGATIVE) /HPF Urine Mucus (Auto) (NEGATIVE) /HPF Urine Culture Reflexed (NO) Urine Glucose (NEGATIVE) mg/dL - Progress Progress: re-examined, unchanged Air Movement: good Blood Culture(s) Obtained: No Antibiotics given: No - Departure Departure Disposition: Home Clinical Impression: Rate controlled atrial fibrillation, Dizziness Condition: Stable Critical Care Time: No Referrals: KRISTOPHER CASEY MD [Primary Care Provider] - Additional Instructions: Drink plenty fluids. Take your medication as prescribed. Follow-up with your checkout supervisor and primary care physician for further management. Return the emergency department if symptoms worsen.
[2020-11-03 18:02] LABS: BASOPHIL % 0.2 % (0.0-0.4); Basophil (Absolute #) 0.01 (0-0.4); Eosinophil % 4.3 % (0.00-5.0); Eosinophil (Absolute #) 0.22 (0-0.5); Hematocrit 38.5 % (35-47); Hemoglobin 12.3 gm/dl (12.0-16.0); Lymphocyte (Absolute #) 1.55 (1.0-4.6); Lymphocytes % 30.6 % (24.0-44.0); Mean Cell Volume 97.7 fl (78-100); Mean Corpuscular Hemoglobin 31.2 pg (26-32); Mean Corpuscular Hgb Concent. 31.9 g/dl (32-36); Monocyte (Absolute #) 0.48 (0.0-1.3); Monocytes % 9.5 % (0.0-12.0); Neutrophil % 55.4 % (36.0-66.0); Platelet Count 194 K/mm3 (150-450); Red Blood Count 3.94 M/mm3 (4.1-5.4); Red Cell Distribution Width 13.4 % (11.5-14.0); White Blood Count 5.1 K/mm3 (4.0-10.5)
[2020-11-03 18:14] LABS: ALBUMIN 4.3 g/dL (3.5-5.0); ANION GAP 15.6 MEQ/L (5-15); BILIRUBIN,TOTAL 0.2 mg/dL (0.2-1.3); Calcium 9.2 mg/dL (8.4-10.2); Creatinine 1 1.53 mg/dL (0.52-1.04); EST GLOMERULAR FILTRATION RATE 35.2 ML/MIN; MAGNESIUM 2.3 mg/dL (1.6-2.3); Potassium 4.9 mmol/L (3.5-5.1); Total Protein 7.5 g/dL (6.3-8.2)
[2020-11-03 18:46] LABS: Appearance CLEAR (CLEAR); Bilirubin NEGATIVE (NEGATIVE); Blood NEGATIVE Ery/ul (0-5); Glucose NEGATIVE (NEGATIVE); Ketones NEGATIVE (NEGATIVE); Leukocyte Esterase NEGATIVE (NEGATIVE); Mucus SLIGHT /HPF (NEGATIVE); Nitrite NEGATIVE (NEGATIVE); Protein,Urine Dip NEGATIVE (Negative); Specific Gravity 1.011 (1.005-1.025); Urobilinogen NEGATIVE mg/dL (0-1)
[2020-11-03 19:22] VITALS: BP 158/80; PULSE 59; O2SAT 99
== END 2020-11-03 19:29 | disposition home or self-care (01) ==
LOC: ED 17:02
DX: I48.91 Unspecified atrial fibrillation (principal); R42 Dizziness and giddiness; Z79.899 Other long term (current) drug therapy
CPT/HCPCS: 36415; 80053; 81001; 83735; 84484; 85025; 93005; 93041; 94760; 99284

== ENCOUNTER 2021-09-29 13:15 | Emergency (ER) | payer MEDICARE ==
--- NOTE | 2021-09-29 13:43 | ERPHSYRPT ---
- History of Present Illness Source: patient Exam Limitations: no limitations Patient Subjective Stated Complaint: Palpitations Triage Nursing Assessment: Patient ambulated back to ED and transferred self to bed. Patient A+OX 3. Patient's skin pink, warm and dry. Patient complains of palipations on and off since 1030. 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 Marley and he told her when she started feeling PAC'S and PVC'S she is to come to ED. Patient denies pain or discomfort or SOB. Physician History: 76 yo wf w palpatations starting around noon today. Pt has a h/o PAC's/PVC's and sees Dr. Marley for this. She denies CP/dyspnea/N/V/diaphoresis. Pt states that Ayaka told her to go to the ER if she was having palpatations. She also complains of chronic R ear pain and sinus pressure x 1 day. Pt denies cough/coryza/fever. Timing/Duration: other (Noon today) Activities at Onset: rest Quality: other (No pain) Severity of Pain-Max: none Severity of Pain-Current: none Modifying Factors: Improves With: nothing Nitro Today/Relief: no nitro taken today Aspirin Treatment Today: no aspirin today Associated Symptoms: denies symptoms Prior Chest Pain/Cardiac Workup: no prior chest pain Allergies/Adverse Reactions: diltiazem HCl [From Cardizem] Allergy (Intermediate, Verified 09/29/21 13:26) Rash Sulfa (Sulfonamide Antibiotics) [Sulfa(Sulfonamide Antibiotics)] Allergy (Intermediate, Verified 09/29/21 13:26) NUMBESS TO FEET stated having numbness in hands and feet betamethasone sodium phosphate [From Celestone] Allergy (Mild, Verified 09/29/21 13:26) IRREGULAR HEARTRATE Tetanus Vaccines and Toxoid [Tetanus] Allergy (Mild, Verified 09/29/21 13:26) Swelling hydrocodone bitartrate [From Vicodin] Adverse Reaction (Intermediate, Verified 09/29/21 13:26) Nausea and Vomiting morphine Adverse Reaction (Intermediate, Verified 09/29/21 13:26) Itching betamethasone [From Celestone] Adverse Reaction (Mild, Verified 09/29/21 13:26) Irregular Heart Beat epinephrine Adverse Reaction (Mild, Verified 09/29/21 13:26) Rapid Heart Beat PPD Allergy (Mild, Uncoded 09/29/21 13:26) Swelling Home Medications: Verapamil HCl Sr [Isoptin Sr] 180 mg PO DAILY 08/20/14 [History] Ergocalciferol (Vitamin D2) [Vitamin D] 50,000 unit PO DAILY 07/24/20 [History] Aspirin 81 gm Chew [Baby Aspirin 81 mg Chew] 1 ea PO DAILY 08/26/20 [History] Hx Tetanus, Diphtheria Vaccination/Date Given: No Hx Influenza Vaccination/Date Given: Yes Hx Pneumococcal Vaccination/Date Given: No Immunizations Up to Date: Yes Travel Risk - International Travel Have you traveled outside of the country in past 3 weeks: No - Coronavirus Screening Are you exhibiting any of the following symptoms?: No Close contact with a COVID-19 positive Pt in past 14-21 Days: No - Vaccine Status Have you recieved a Covid-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: Yes 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 - Vaccination Dates Date of 2cond Vaccination (if applicable): june - Review of Systems Constitutional: No Symptoms Eyes: No Symptoms Ears, Nose, & Throat: No Symptoms, No Nose Pain, No Nose Congestion, No Nose Discharge, No Sinus Drainage, No Epistaxis, No Mouth Pain, No Mouth Swelling, No Loose Teeth, No Throat Pain, No Throat Swelling, No Hoarse, No Painful Swallowing, No Snoring, No Stridor Respiratory: No Symptoms Cardiac: No Symptoms Abdominal/Gastrointestinal: No Symptoms Genitourinary Symptoms: No Symptoms Musculoskeletal: No Symptoms Skin: No Symptoms Neurological: No Symptoms Psychological: No Symptoms Endocrine: No Symptoms Hematologic/Lymphatic: No Symptoms Immunological/Allergic: No Symptoms - Past Medical History Pertinent Past Medical History: Yes Neurological History: Other ENT History: No Pertinent History Cardiac History: Arrhythmia, Other Respiratory History: No Pertinent History, Other Endocrine Medical History: No Pertinent History Musculoskeletal History: Other GI Medical History: No Pertinent History History: No Pertinent History Psycho-Social History: No Pertinent History Female Reproductive Disorders: No Pertinent History Other Medical History: MUSCULAR DYSTROPHY, svt, heart murmur - Past Surgical History Past Surgical History: Yes Neuro Surgical History: No Pertinent History Cardiac: No Pertinent History Respiratory: No Pertinent History Gastrointestinal: No Pertinent History Genitourinary: No Pertinent History Musculoskeletal: No Pertinent History Female Surgical History: No Pertinent History Other Surgical History: GLAND DRAINED IN NECK AN , Left eye sugery May 2019 - Social History Smoking Status: Never smoker Exposure to second hand smoke: No Drug Use: none Patient Lives Alone: Yes Significant Family History: no pertinent family hx - Nursing Vital Signs Nursing Vital Signs: Initial Vital Signs Temperature 97.6 F 09/29/21 13:28 Pulse Rate 69 09/29/21 13:28 Respiratory Rate 18 09/29/21 13:28 Blood Pressure 161/86 09/29/21 13:28 O2 Sat by Pulse Oximetry 99 09/29/21 13:28 Pain Scale Pain Intensity 0 Hypertensive - Physical Exam General Appearance: no apparent distress Eye Exam: PERRL/EOMI, eyes nml inspection Ears, Nose, Throat Exam: normal ENT inspection, TMs normal, pharynx normal Neck Exam: normal inspection, non-tender, supple, full range of motion, No meningismus, No mass, No Brudzinski, No Kernig's Respiratory Exam: normal breath sounds, lungs clear, airway intact Cardiovascular Exam: regular rate/rhythm, normal heart sounds, normal peripheral pulses, No murmur Gastrointestinal/Abdomen Exam: soft, normal bowel sounds, No tenderness Back Exam: normal inspection, normal range of motion Extremity Exam: normal inspection, normal range of motion Neurologic Exam: alert, oriented x 3, cooperative, 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 tested, normal mood/affect, nml station & gait, sensation nml Skin Exam: normal color, warm, dry Lymphatic Exam: No adenopathy SpO2 Interpretation: normal SpO2: 99 O2 Delivery: Room Air - Course Nursing assessment & vital signs reviewed: Yes EKG Interpreted by Me: RATE (NSR/PAC's/Normal QT-QTc/No acute ST segment changes ) - Radiology Exams Chest X-ray Interpretation: Interpreted by me (CXR wnl) Ordered Tests: Active Orders 24 hr Category Date Time Status EKG-ER Only STAT Care 09/29/21 13:36 Completed CHEST 1 VIEW (PORTABLE) Stat Exams 09/29/21 14:15 Taken CBC W DIFF Stat Lab 09/29/21 13:55 Completed CMP Stat Lab 09/29/21 13:55 Completed MAGNESIUM Stat Lab 09/29/21 13:55 Completed PROTIME WITH INR Stat Lab 09/29/21 13:55 Completed PTT Stat Lab 09/29/21 13:55 Completed TROPONIN Q3H Lab 09/29/21 13:55 Completed Lab/Rad Data: Laboratory Result Diagrams 09/29/21 13:55 09/29/21 13:55 Laboratory Results 09/29/21 09/29/21 09/29/21 Range/Units 13:55 13:55 13:55 WBC (4.0-10.5) x10^3/uL RBC (4.1-5.4) x10^6/uL Hgb (12.0-16.0) g/dL Hct (35-47) % MCV (78-100) fL MCH (26-32) pg MCHC (32-36) g/dL RDW (11.5-14.0) % Plt Count (150-450) x10^3/uL MPV (7.5-11.0) fL Gran % (36.0-66.0) % Immature Gran % (Auto) (0.00-0.4) % Nucleat RBC Rel Count (0.00-0.1) % Eos # (Auto) (0-0.5) x10^3/uL Immature Gran # (Auto) (0.00-0.03) x10^3u/L Absolute Lymphs (auto) (1.0-4.6) x10^3/uL Absolute Monos (auto) (0.0-1.3) x10^3/uL Absolute Nucleated RBC (0.00-0.01) x10^3u/L Lymphocytes % (24.0-44.0) % Monocytes % (0.0-12.0) % Eosinophils % (0.00-5.0) % Basophils % (0.0-0.4) % Absolute Granulocytes (1.4-6.9) x10^3/uL Basophils # (0-0.4) x10^3/uL PT 10.5 (9.4-12.5) SECONDS INR 0.99 (0.8-3.0) APTT 23.1 L (25.1-36.5) SECONDS Sodium 136 L (137-145) mmol/L Potassium 4.7 (3.5-5.1) mmol/L Chloride 104 (98-107) mmol/L Carbon Dioxide 25 (22-30) mmol/L Anion Gap 12.2 (5-15) MEQ/L BUN 45 H (7-17) mg/dL Creatinine 1.40 H (0.52-1.04) mg/dL Estimated GFR 38.9 ML/MIN Glucose 124 H (74-106) mg/dL Calcium 9.1 (8.4-10.2) mg/dL Magnesium 2.1 (1.6-2.3) mg/dL Total Bilirubin 0.50 (0.2-1.3) mg/dL AST 28 (14-36) U/L ALT 14 (0-35) U/L Alkaline Phosphatase 46 (38-126) U/L Troponin I < 0.012 (0.000-0.034) ng/mL Serum Total Protein 7.2 (6.3-8.2) g/dL Albumin 4.1 (3.5-5.0) g/dL 09/29/21 Range/Units 13:55 WBC 5.4 (4.0-10.5) x10^3/uL RBC 3.80 L (4.1-5.4) x10^6/uL Hgb 11.9 L (12.0-16.0) g/dL Hct 37.1 (35-47) % MCV 97.6 (78-100) fL MCH 31.3 (26-32) pg MCHC 32.1 (32-36) g/dL RDW 12.7 (11.5-14.0) % Plt Count 194 (150-450) x10^3/uL MPV 10.1 (7.5-11.0) fL Gran % 65.5 (36.0-66.0) % Immature Gran % (Auto) 0.4 (0.00-0.4) % Nucleat RBC Rel Count 0.0 (0.00-0.1) % Eos # (Auto) 0.10 (0-0.5) x10^3/uL Immature Gran # (Auto) 0.02 (0.00-0.03) x10^3u/L Absolute Lymphs (auto) 1.34 (1.0-4.6) x10^3/uL Absolute Monos (auto) 0.38 (0.0-1.3) x10^3/uL Absolute Nucleated RBC 0.00 (0.00-0.01) x10^3u/L Lymphocytes % 24.7 (24.0-44.0) % Monocytes % 7.0 (0.0-12.0) % Eosinophils % 1.8 (0.00-5.0) % Basophils % 0.6 (0.0-0.4) % Absolute Granulocytes 3.55 (1.4-6.9) x10^3/uL Basophils # 0.03 (0-0.4) x10^3/uL PT (9.4-12.5) SECONDS INR (0.8-3.0) APTT (25.1-36.5) SECONDS Sodium (137-145) mmol/L Potassium (3.5-5.1) mmol/L Chloride (98-107) mmol/L Carbon Dioxide (22-30) mmol/L Anion Gap (5-15) MEQ/L BUN (7-17) mg/dL Creatinine (0.52-1.04) mg/dL Estimated GFR ML/MIN Glucose (74-106) mg/dL Calcium (8.4-10.2) mg/dL Magnesium (1.6-2.3) mg/dL Total Bilirubin (0.2-1.3) mg/dL AST (14-36) U/L ALT (0-35) U/L Alkaline Phosphatase (38-126) U/L Troponin I (0.000-0.034) ng/mL Serum Total Protein (6.3-8.2) g/dL Albumin (3.5-5.0) g/dL - Progress Progress Note: 09/29/21 17:40 Pt w occ PAC's on monitor but no malignant arrythmias during entire stay Counseled pt/family regarding: lab results, diagnosis, need for follow-up, rad results - Departure Departure Disposition: Home Clinical Impression: Heart palpitations, Chronic renal insufficiency Condition: Stable Critical Care Time: No Referrals: KRISTOPHER CASEY MD [Primary Care Provider] - Follow up/PCP as directed Instructions: Arrhythmias (DC), Palpitations (DC) Additional Instructions: Follow up with Dr. Marley Return to ER for consistent heart rate greater than 110 for over 10 minutes, chest pain, or shortness of breath
[2021-09-29 14:04] LABS: Absolute Neutrophil Ct (ANC) 3.55 x10^3/uL (1.4-6.9); Basophil (Absolute #) 0.03 x10^3/uL (0-0.4); Eosinophil % 1.8 % (0.00-5.0); Hematocrit 37.1 % (35-47); Hemoglobin 11.9 g/dL (12.0-16.0); Lymphocyte (Absolute #) 1.34 x10^3/uL (1.0-4.6); Lymphocytes % 24.7 % (24.0-44.0); Mean Cell Volume 97.6 fL (78-100); Mean Corpuscular Hemoglobin 31.3 pg (26-32); Mean Corpuscular Hgb Concent. 32.1 g/dL (32-36); Mean Platelet Volume 10.1 fL (7.5-11.0); Monocyte (Absolute #) 0.38 x10^3/uL (0.0-1.3); Neutrophil % 65.5 % (36.0-66.0); Platelet Count 194 x10^3/uL (150-450); Red Cell Distribution Width 12.7 % (11.5-14.0); White Blood Count 5.4 x10^3/uL (4.0-10.5)
[2021-09-29 14:10] LABS: ALBUMIN 4.1 g/dL (3.5-5.0); ANION GAP 12.2 MEQ/L (5-15); BILIRUBIN,TOTAL 0.5 mg/dL (0.2-1.3); Calcium 9.1 mg/dL (8.4-10.2); Creatinine 1 1.4 mg/dL (0.52-1.04); EST GLOMERULAR FILTRATION RATE 38.9 ML/MIN; MAGNESIUM 2.1 mg/dL (1.6-2.3); Potassium 4.7 mmol/L (3.5-5.1); Total Protein 7.2 g/dL (6.3-8.2)
[2021-09-29 14:12] LABS: INR 0.99 (0.8-3.0); PROTIME 10.5 SECONDS (9.4-12.5); PTT 23.1 SECONDS (25.1-36.5)
[2021-09-29 14:39] VITALS: BP 143/82; PULSE 65
[2021-09-29 14:46] VITALS: O2SAT 99
--- NOTE | 2021-09-29 20:37 | XRAY ---
Indication: Palpitations. Comparison: July 24, 2020. Portable chest demonstrates new minimal left base subsequent atelectasis/scarring. Remaining heart and lungs unremarkable. Bony thorax intact again with mild osteopenia, degenerative changes, and mild levoscoliosis.
== END 2021-09-29 15:03 | disposition home or self-care (01) ==
LOC: ED 13:15
DX: R00.2 Palpitations (principal); N18.9 Chronic kidney disease, unspecified; H92.01 Otalgia, right ear; G71.00 Muscular dystrophy, unspecified; Z79.899 Other long term (current) drug therapy
CPT/HCPCS: 36000; 36415; 71045; 80053; 83735; 84484; 85025; 85610; 85730; 93005; 99284

== ENCOUNTER 2022-09-08 14:00 | Emergency (ER) | payer MEDICARE ==
[2022-09-08] MEDS ORDERED: Zofran 4 MG/2 ML VIAL IV ONE (14:01)
[2022-09-08] MEDS ORDERED: Adenocard IV 6 MG/2 ML IV ONE ×2 (14:01→14:04)
[2022-09-08] MEDS ORDERED: Sodium Chloride 0.9% 1000 ML 1,000 ML IV STA (14:01)
[2022-09-08] MEDS ORDERED: Zofran 4 MG/2 ML VIAL ONE (14:03)
[2022-09-08] MEDS ORDERED: Sodium Chloride 0.9% 1000 ML 1,000 ML ONE (14:04)
[2022-09-08 14:39] LABS: Absolute Neutrophil Ct (ANC) 3.12 x10^3/uL (1.4-6.9); BASOPHIL % 0.3 % (0.0-0.4); Basophil (Absolute #) 0.02 x10^3/uL (0-0.4); Eosinophil (Absolute #) 0.31 x10^3/uL (0-0.5); Hematocrit 38.2 % (35-47); Hemoglobin 12.2 g/dL (12.0-16.0); IMMATURE GRAN # 0.02 x10^3u/L (0.00-0.03); IMMATURE GRAN % 0.3 % (0.00-0.4); Lymphocyte (Absolute #) 2.13 x10^3/uL (1.0-4.6); Lymphocytes % 34.5 % (24.0-44.0); Mean Cell Volume 95.3 fL (78-100); Mean Corpuscular Hemoglobin 30.4 pg (26-32); Mean Corpuscular Hgb Concent. 31.9 g/dL (32-36); Mean Platelet Volume 10.4 fL (7.5-11.0); Monocyte (Absolute #) 0.58 x10^3/uL (0.0-1.3); Monocytes % 9.4 % (0.0-12.0); Neutrophil % 50.5 % (36.0-66.0); Platelet Count 215 x10^3/uL (150-450); Red Blood Count 4.01 x10^6/uL (4.1-5.4); Red Cell Distribution Width 12.8 % (11.5-14.0); White Blood Count 6.2 x10^3/uL (4.0-10.5)
[2022-09-08 14:58] LABS: ALBUMIN 4.4 g/dL (3.5-5.0); BILIRUBIN,TOTAL 0.8 mg/dL (0.2-1.3); Calcium 8.9 mg/dL (8.4-10.2); Creatinine 1 1.47 mg/dL (0.52-1.04); EST GLOMERULAR FILTRATION RATE 36.6 ML/MIN; Potassium 4.8 mmol/L (3.5-5.1); Total Protein 8.1 g/dL (6.3-8.2)
[2022-09-08 15:39] LABS: Appearance Clear (Clear); Bacteria None Seen /HPF (None Seen); Bilirubin Negative (Negative); Blood Negative (Negative); Epithelial Cells None Seen /HPF (None Seen); Glucose, Urine Negative (Negative); Hyaline Casts NONE SEEN /LPF (0-2); Ketones Negative (Negative); Leukocyte Esterase Small (Negative); Nitrite Negative (Negative); Protein,Urine Dip Negative (Negative); RBC 0-2 /HPF (0-5); Urobilinogen 0.2 mg/dL (0.2); WBC 0-2 /HPF (0-5)
[2022-09-08 15:40] LABS: ADD URINE CULTURE? NO (NO)
--- NOTE | 2022-09-08 15:50 | ERPHSYRPT ---
- History of Present Illness Time Seen by Provider: 09/08/22 14:21 Historian: patient Exam Limitations: no limitations Patient Subjective Stated Complaint: Pt states "I was raking the yard and I started to have palpitations and I was told by Dr. Trinh if they last longer than an hour than I am to come to the hospital." Triage Nursing Assessment: Pt presented alert and oriented X 3, skin pwd. Pt ambulates with an upright steady gait, able to speak in clear full sentences pt in no apparent respiratory distress. Pt stating she has palpitations. pt resting comfortably on the bed. Pt was given 6 mg adenasine iv push immediately and she converted to sinus rhythm Physician History: 77-year-old female with history of SVT on verapamil presented in the ER with chief complaint of sudden onset palpitations almost hour and a half prior to arrival while she was raking in the ER. Patient reports some shortness of breat h with it. No chest pain but some tightness/pressure. Denies any fever chills or cough. Patient reports usually it gets better on its own but it was not going away and that is why she decided to seek medical attention. She is not in any distress but very anxious. Timing/Duration: hour(s) (1.5), constant, sudden Activities at Onset: activity Modifying Factors: Improves With: nothing Associated Symptoms: palpitations, shortness of breath Nitro Today/Relief: no nitro taken today Aspirin Treatment Today: 81 mg x 1 Allergies/Adverse Reactions: diltiazem HCl [From Cardizem] Allergy (Intermediate, Verified 09/29/21 13:26) Rash Sulfa (Sulfonamide Antibiotics) [Sulfa(Sulfonamide Antibiotics)] Allergy (Intermediate, Verified 09/29/21 13:26) NUMBESS TO FEET stated having numbness in hands and feet betamethasone sodium phosphate [From Celestone] Allergy (Mild, Verified 09/29/21 13:26) IRREGULAR HEARTRATE Tetanus Vaccines and Toxoid [Tetanus] Allergy (Mild, Verified 09/29/21 13:26) Swelling hydrocodone bitartrate [From Vicodin] Adverse Reaction (Intermediate, Verified 09/29/21 13:26) Nausea and Vomiting morphine Adverse Reaction (Intermediate, Verified 09/29/21 13:26) Itching betamethasone [From Celestone] Adverse Reaction (Mild, Verified 09/29/21 13:26) Irregular Heart Beat epinephrine Adverse Reaction (Mild, Verified 09/29/21 13:26) Rapid Heart Beat PPD Allergy (Mild, Uncoded 09/29/21 13:26) Swelling Home Medications: Verapamil HCl Sr [Isoptin Sr] 180 mg PO DAILY 08/20/14 [History] Ergocalciferol (Vitamin D2) [Vitamin D] 50,000 unit PO DAILY 07/24/20 [History] Aspirin 81 gm Chew [Baby Aspirin 81 mg Chew] 1 ea PO DAILY 08/26/20 [History] Hx Tetanus, Diphtheria Vaccination/Date Given: No Hx Influenza Vaccination/Date Given: Yes Hx Pneumococcal Vaccination/Date Given: No Travel Risk - International Travel Have you traveled outside of the country in past 3 weeks: No - Coronavirus Screening Are you exhibiting any of the following symptoms?: No Close contact with a COVID-19 positive Pt in past 14-21 Days: No - Vaccine Status Have you recieved a Covid-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: 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[employer] - Vaccination Dates Date of 2cond Vaccination (if applicable): june - Review of Systems Constitutional: No Symptoms Eyes: No Symptoms Ears, Nose, & Throat: No Symptoms Respiratory: No Symptoms Cardiac: Palpitations Abdominal/Gastrointestinal: No Symptoms Genitourinary Symptoms: No Symptoms Musculoskeletal: Arthralgias Skin: No Symptoms Neurological: No Symptoms Psychological: No Symptoms Endocrine: No Symptoms Hematologic/Lymphatic: No Symptoms - Past Medical History Pertinent Past Medical History: Yes Neurological History: Other ENT History: No Pertinent History Cardiac History: Arrhythmia, Other Respiratory History: No Pertinent History, Other Endocrine Medical History: No Pertinent History Musculoskeletal History: Other GI Medical History: No Pertinent History History: No Pertinent History Psycho-Social History: No Pertinent History Female Reproductive Disorders: No Pertinent History Other Medical History: MUSCULAR DYSTROPHY, svt, heart murmur - Past Surgical History Past Surgical History: Yes Neuro Surgical History: No Pertinent History Cardiac: No Pertinent History Respiratory: No Pertinent History Gastrointestinal: No Pertinent History Genitourinary: No Pertinent History Musculoskeletal: No Pertinent History Female Surgical History: No Pertinent History Other Surgical History: GLAND DRAINED IN NECK AN INFANT, Left eye sugery May 2019 - Social History Smoking Status: Never smoker Exposure to second hand smoke: No Drug Use: none Patient Lives Alone: Yes Significant Family History: no pertinent family hx - Nursing Vital Signs Nursing Vital Signs: Initial Vital Signs Temperature 98.9 F 09/08/22 14:08 Pulse Rate 152 H 09/08/22 14:08 Respiratory Rate 22 09/08/22 14:08 Blood Pressure 109/82 09/08/22 14:08 O2 Sat by Pulse Oximetry 100 09/08/22 14:08 Pain Scale Pain Intensity 0 - Physical Exam General Appearance: no apparent distress, alert, anxiety Eye Exam: PERRL/EOMI Ears, Nose, Throat Exam: normal ENT inspection Neck Exam: normal inspection, supple, full range of motion Respiratory Exam: normal breath sounds, lungs clear Cardiovascular Exam: normal heart sounds, tachycardia Gastrointestinal/Abdomen Exam: soft, normal bowel sounds, No tenderness Back Exam: normal inspection Extremity Exam: normal inspection, normal range of motion Neurologic Exam: alert, oriented x 3, cooperative, 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 Rate 103, sinus tachycardia, normal axis, no ST elevations, normal intervals.) Ordered Tests: Active Orders 24 hr Category Date Time Status Allergist/Immunologist STAT Care 09/08/22 14:31 Active EKG-ER Only STAT Care 09/08/22 14:31 Active IV Insertion STAT Care 09/08/22 14:31 Active CHEST 1 VIEW (PORTABLE) Stat Exams 09/08/22 14:50 Taken CBC W DIFF Stat Lab 09/08/22 14:24 Completed CMP Stat Lab 09/08/22 14:24 Completed NT PRO BNPII Stat Lab 09/08/22 14:24 Completed TROPONIN Q4H Lab 09/08/22 14:24 Completed TROPONIN Q4H Lab 09/08/22 18:45 Ordered TROPONIN Q4H Lab 09/08/22 22:45 Ordered UA W/RFX UR CULTURE Stat Lab 09/08/22 14:54 Completed Standby STAT RT 09/08/22 14:16 Completed Medication Summary Discontinued Medications Generic Name Dose Route Start Last Admin Trade Name Freq PRN Reason Stop Dose Admin Adenosine 6 mg 09/08/22 14:01 09/08/22 14:05 Adenosine 6 Mg/2 Ml Vial IV 09/08/22 14:02 6 mg STAT ONE Administration Adenosine Confirm 09/08/22 14:04 Adenosine 6 Mg/2 Ml Vial Administered 09/08/22 14:05 Dose 6 mg IV .STK-MED ONE Sodium Chloride 1,000 mls @ 999 mls/hr 09/08/22 14:01 09/08/22 15:07 Sodium Chloride 0.9% 1000 Ml IV 09/08/22 15:01 Infused .Q1H1M STA Infusion Sodium Chloride Confirm 09/08/22 14:04 Sodium Chloride 0.9% 1000 Ml Administered 09/08/22 14:05 Dose 1,000 mls @ ud .ROUTE .STK-MED ONE Ondansetron HCl 4 mg 09/08/22 14:01 09/08/22 14:05 Ondansetron Hcl 4 Mg/2 Ml Vial IV 09/08/22 14:02 4 mg STAT ONE Administration Ondansetron HCl Confirm 09/08/22 14:03 Ondansetron Hcl 4 Mg/2 Ml Vial Administered 09/08/22 14:04 Dose 4 mg .ROUTE .STK-MED ONE Lab/Rad Data: Laboratory Result Diagrams 09/08/22 14:24 09/08/22 14:24 Laboratory Results 09/08/22 09/08/22 09/08/22 Range/Units 14:54 14:24 14:24 WBC (4.0-10.5) x10^3/uL RBC (4.1-5.4) x10^6/uL Hgb (12.0-16.0) g/dL Hct (35-47) % MCV (78-100) fL MCH (26-32) pg MCHC (32-36) g/dL RDW (11.5-14.0) % Plt Count (150-450) x10^3/uL MPV (7.5-11.0) fL Gran % (36.0-66.0) % Immature Gran % (Auto) (0.00-0.4) % Nucleat RBC Rel Count (0.00-0.1) % Eos # (Auto) (0-0.5) x10^3/uL Immature Gran # (Auto) (0.00-0.03) x10^3u/L Absolute Lymphs (auto) (1.0-4.6) x10^3/uL Absolute Monos (auto) (0.0-1.3) x10^3/uL Absolute Nucleated RBC (0.00-0.01) x10^3u/L Lymphocytes % (24.0-44.0) % Monocytes % (0.0-12.0) % Eosinophils % (0.00-5.0) % Basophils % (0.0-0.4) % Absolute Granulocytes (1.4-6.9) x10^3/uL Basophils # (0-0.4) x10^3/uL Sodium (137-145) mmol/L Potassium (3.5-5.1) mmol/L Chloride (98-107) mmol/L Carbon Dioxide (22-30) mmol/L Anion Gap (5-15) MEQ/L BUN (7-17) mg/dL Creatinine (0.52-1.04) mg/dL Estimated GFR ML/MIN Glucose (74-106) mg/dL Calcium (8.4-10.2) mg/dL Total Bilirubin (0.2-1.3) mg/dL AST (14-36) U/L ALT (0-35) U/L Alkaline Phosphatase (38-126) U/L Troponin I < 0.012 (0.000-0.034) ng/mL NT-Pro-B Natriuret Pep 218 (<300) pg/mL Serum Total Protein (6.3-8.2) g/dL Albumin (3.5-5.0) g/dL Urine Color Yellow (Yellow) Urine Appearance Clear (Clear) Urine pH 7.0 (4.6-8.0) Ur Specific Mallie 1.010 (1.005-1.030) Urine Protein Negative (Negative) Urine Glucose (UA) Negative (Negative) mg/dL Urine Ketones Negative (Negative) Urine Blood Negative (Negative) Urine Nitrite Negative (Negative) Urine Bilirubin Negative (Negative) Urine Urobilinogen 0.2 (0.2) mg/dL Ur Leukocyte Esterase Small A (Negative) U Hyaline Cast (Auto) NONE SEEN (0-2) /LPF Urine Microscopic RBC 0-2 (0-5) /HPF Urine Microscopic WBC 0-2 (0-5) /HPF Ur Epithelial Cells None Seen (None Seen) /HPF Urine Bacteria None Seen (None Seen) /HPF Urine Culture Reflexed NO (NO) 09/08/22 09/08/22 Range/Units 14:24 14:24 WBC 6.2 (4.0-10.5) x10^3/uL RBC 4.01 L (4.1-5.4) x10^6/uL Hgb 12.2 (12.0-16.0) g/dL Hct 38.2 (35-47) % MCV 95.3 (78-100) fL MCH 30.4 (26-32) pg MCHC 31.9 L (32-36) g/dL RDW 12.8 (11.5-14.0) % Plt Count 215 (150-450) x10^3/uL MPV 10.4 (7.5-11.0) fL Gran % 50.5 (36.0-66.0) % Immature Gran % (Auto) 0.3 (0.00-0.4) % Nucleat RBC Rel Count 0.0 (0.00-0.1) % Eos # (Auto) 0.31 (0-0.5) x10^3/uL Immature Gran # (Auto) 0.02 (0.00-0.03) x10^3u/L Absolute Lymphs (auto) 2.13 (1.0-4.6) x10^3/uL Absolute Monos (auto) 0.58 (0.0-1.3) x10^3/uL Absolute Nucleated RBC 0.00 (0.00-0.01) x10^3u/L Lymphocytes % 34.5 (24.0-44.0) % Monocytes % 9.4 (0.0-12.0) % Eosinophils % 5.0 (0.00-5.0) % Basophils % 0.3 (0.0-0.4) % Absolute Granulocytes 3.12 (1.4-6.9) x10^3/uL Basophils # 0.02 (0-0.4) x10^3/uL Sodium 137 (137-145) mmol/L Potassium 4.8 (3.5-5.1) mmol/L Chloride 105 (98-107) mmol/L Carbon Dioxide 20 L (22-30) mmol/L Anion Gap 17.0 H (5-15) MEQ/L BUN 47 H (7-17) mg/dL Creatinine 1.47 H (0.52-1.04) mg/dL Estimated GFR 36.6 ML/MIN Glucose 118 H (74-106) mg/dL Calcium 8.9 (8.4-10.2) mg/dL Total Bilirubin 0.80 (0.2-1.3) mg/dL AST 35 (14-36) U/L ALT 18 (0-35) U/L Alkaline Phosphatase 64 (38-126) U/L Troponin I (0.000-0.034) ng/mL NT-Pro-B Natriuret Pep (<300) pg/mL Serum Total Protein 8.1 (6.3-8.2) g/dL Albumin 4.4 (3.5-5.0) g/dL Urine Color (Yellow) Urine Appearance (Clear) Urine pH (4.6-8.0) Ur Specific Mallie (1.005-1.030) Urine Protein (Negative) Urine Glucose (UA) (Negative) mg/dL Urine Ketones (Negative) Urine Blood (Negative) Urine Nitrite (Negative) Urine Bilirubin (Negative) Urine Urobilinogen (0.2) mg/dL Ur Leukocyte Esterase (Negative) U Hyaline Cast (Auto) (0-2) /LPF Urine Microscopic RBC (0-5) /HPF Urine Microscopic WBC (0-5) /HPF Ur Epithelial Cells (None Seen) /HPF Urine Bacteria (None Seen) /HPF Urine Culture Reflexed (NO) - Progress Progress: improved, re-examined Air Movement: good Progress Note: 09/08/22 15:48 77-year-old is evaluated for sudden onset palpitations almost an hour and a half ago while she was working in the yard. Patient has history of SVT and usually converts with different maneuvers but it was not getting better. Patient was in SVT on presentation with heart rate in 160s, given fluids and adenosine times one 6 mg and patient converted to normal sinus rhythm. Chest x-ray negative for any acute cardiopulmonary findings reviewed by me, official report is pending. Patient is feeling much better immediately with improvement in work of breathing and chest pressure and also blood pressure as well. Baseline work-up was obtained with normal white count, chemistries consistent with some LANA with a baseline creatinine around 1.1-1.2 and today 1.4, given fluid bolus. I have offered her observation admission but patient does not want to stay in the hospital at all. Patient states "I have dogs to feed and will follow-up outpatient". She is advised to drink plenty of fluids to keep up with her hydr ation status. Recommended outpatient follow-up with cardiology. Discussed signs symptoms of worsening needing return to ER which patient seems understanding. 09/08/22 15:50 Blood Culture(s) Obtained: No Antibiotics given: No Counseled pt/family regarding: lab results, diagnosis, need for follow-up, rad results - Departure Departure Disposition: Home Clinical Impression: SVT (supraventricular tachycardia), LANA (acute kidney injury) Condition: Stable Critical Care Time: Yes Critical Care Time(excluding separately billable procedures): Critical 30-74 mins Referrals: KRISTOPHER CASEY MD [Primary Care Provider] - Follow up with PCP 2 days JUAN CASTELLANOS [CONSULTING PHYSICIAN] - Follow up/PCP as directed (in 2 days for re evaluation ) Instructions: Acute Kidney Injury (DC), Supraventricular Tachycardia (SVT) Additional Instructions: Drink plenty of fluids to keep yourself well-hydrated. Continue with your current medications. Follow-up with primary care/cardiology for reevaluation. Return to ER for any worsening.
[2022-09-08 16:04] VITALS: PULSE 68
[2022-09-08 16:33] VITALS: BP 135/68; O2SAT 97
--- NOTE | 2022-09-08 20:10 | XRAY ---
Indication: Palpitations. Comparison: September 29, 2021 Portable chest again demonstrates minimal left base fibrosis/scarring. No focal infiltrate, consolidation, or large effusion. Heart not enlarged. Bony thorax intact again with osteopenia, mild degenerative changes, and mild scoliosis. Impression: Continued nonacute chest with chronic features.
== END 2022-09-08 16:33 | disposition home or self-care (01) ==
LOC: ED 14:00
DX: I47.1 Supraventricular tachycardia (principal); N17.9 Acute kidney failure, unspecified; R06.02 Shortness of breath; R07.9 Chest pain, unspecified; Z79.899 Other long term (current) drug therapy
CPT/HCPCS: 36000; 36415; 71045; 80053; 81001; 83880; 84484; 85025; 93005; 93041; 94799; 96374; 96375; 99284; J0153; J2405

== ENCOUNTER 2022-10-05 09:26 | Emergency (ER) | payer MEDICARE ==
[2022-10-05 09:41] VITALS: BP 176/69; PULSE 69; O2SAT 100
--- NOTE | 2022-10-05 09:42 | ERPHSYRPT ---
- History of Present Illness Time Seen by Provider: 10/05/22 09:38 Source: patient Exam Limitations: no limitations Physician History: Patient is 77-year-old female with significant past medical history of atrial flutter hypertension also had few months ago had a blood clot in her left brachial vein for which patient underwent 4 months of anticoagulation therapy and it was stopped afterwards. Recently patient had a IV access on her left wrist area and afterwards approximately to 3 cm of the vein on the left thumb is mildly swollen. So patient is concerned that she might have a blood clot in that small vein and that is why she came to the emergency room for further evaluation. She denies any other symptoms including chest pain shortness of breath redness erythema on the left or blood in the urine or stool. Occurred: last week Method of Injury: unknown Severity of Pain-Max: none Severity of Pain-Current: none Extremities Pain Location: thumb: left Modifying Factors: Improves With: nothing Associated Symptoms: none Body Map: 1 - area of vein swelling Allergies/Adverse Reactions: diltiazem HCl [From Cardizem] Allergy (Intermediate, Verified 09/29/21 13:26) Rash Sulfa (Sulfonamide Antibiotics) [Sulfa(Sulfonamide Antibiotics)] Allergy (Intermediate, Verified 09/29/21 13:26) NUMBESS TO FEET stated having numbness in hands and feet betamethasone sodium phosphate [From Celestone] Allergy (Mild, Verified 09/29/21 13:26) IRREGULAR HEARTRATE Tetanus Vaccines and Toxoid [Tetanus] Allergy (Mild, Verified 09/29/21 13:26) Swelling hydrocodone bitartrate [From Vicodin] Adverse Reaction (Intermediate, Verified 09/29/21 13:26) Nausea and Vomiting morphine Adverse Reaction (Intermediate, Verified 09/29/21 13:26) Itching betamethasone [From Celestone] Adverse Reaction (Mild, Verified 09/29/21 13:26) Irregular Heart Beat epinephrine Adverse Reaction (Mild, Verified 09/29/21 13:26) Rapid Heart Beat PPD Allergy (Mild, Uncoded 09/29/21 13:26) Swelling Home Medications: Verapamil HCl Sr [Isoptin Sr] 180 mg PO DAILY 08/20/14 [History] Ergocalciferol (Vitamin D2) [Vitamin D] 50,000 unit PO DAILY 07/24/20 [History] Aspirin 81 gm Chew [Baby Aspirin 81 mg Chew] 1 ea PO DAILY 08/26/20 [History] Hx Tetanus, Diphtheria Vaccination/Date Given: No Hx Influenza Vaccination/Date Given: Yes Hx Pneumococcal Vaccination/Date Given: No Travel Risk - Vaccine Status Have you recieved a Covid-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: Yes Wrister: Moderna - Vaccination Dates Date of 2cond Vaccination (if applicable): june - Review of Systems Constitutional: No Fever, No Chills Eyes: No Symptoms Ears, Nose, & Throat: No Symptoms Respiratory: No Cough, No Dyspnea Cardiac: No Chest Pain, No Edema, No Syncope Abdominal/Gastrointestinal: No Abdominal Pain, No Nausea, No Vomiting, No Diarrhea Genitourinary Symptoms: No Dysuria Musculoskeletal: No Back Pain, No Neck Pain Skin: No Rash Neurological: No Dizziness, No Focal Weakness, No Sensory Changes Psychological: No Symptoms Endocrine: No Symptoms All Other Systems: Reviewed and Negative - Past Medical History Pertinent Past Medical History: Yes Neurological History: Other ENT History: No Pertinent History Cardiac History: Arrhythmia, Other Respiratory History: No Pertinent History, Other Endocrine Medical History: No Pertinent History Musculoskeletal History: Other GI Medical History: No Pertinent History History: No Pertinent History Psycho-Social History: No Pertinent History Female Reproductive Disorders: No Pertinent History Other Medical History: MUSCULAR DYSTROPHY, svt, heart murmur - Past Surgical History Past Surgical History: Yes Neuro Surgical History: No Pertinent History Cardiac: No Pertinent History Respiratory: No Pertinent History Gastrointestinal: No Pertinent History Genitourinary: No Pertinent History Musculoskeletal: No Pertinent History Female Surgical History: No Pertinent History Other Surgical History: GLAND DRAINED IN NECK AN , Left eye sugery May 2019 - Social History Smoking Status: Never smoker Exposure to second hand smoke: No Drug Use: none Patient Lives Alone: Yes Significant Family History: no pertinent family hx - Physical Exam General Appearance: alert Eyes, Ears, Nose, Throat Exam: moist mucous membranes Neck Exam: non-tender, supple Cardiovascular/Respiratory Exam: chest non-tender, normal breath sounds, regular rate/rhythm, no respiratory distress Abdominal Exam: non-tender, No guarding Back Exam: normal inspection, No vertebral tenderness Neuro/Tendon Exam: normal sensation, normal motor functions Mental Status Exam: alert, oriented x 3, cooperative Skin Exam: normal color, warm, dry - Course Nursing assessment & vital signs reviewed: Yes - Progress Progress: unchanged Counseled pt/family regarding: diagnosis, need for follow-up Medical Desision Making - Risk of complications Minimal Risk: Minimal risk of morbidity - Departure Departure Disposition: Home Clinical Impression: Superficial thrombophlebitis of left upper extremity Condition: Stable Critical Care Time: No Referrals: KRISTOPHER CASEY MD [Primary Care Provider] - Follow up/PCP as directed Instructions: Superficial vein phlebitis and thrombosis, How to Prevent Blood Clots Additional Instructions: Discharge/Care Plan CASSANDRA ABAD was seen on 10/05/22 in the Emergency Room. The patient was counseled regarding Diagnosis,Lab results, Imaging studies, need for follow up and when to return to the Emergency Room. Prescriptions given: Discharge Note I have spoken with the patient and/or caregivers. I have explained the patient's condition, diagnosis and treatment plan based on the information available to me at this time. I have answered the patient's and/or caregiver's questions and addressed any concerns. The patient and/or caregivers have as good understanding of the patient's diagnosis, condition and treatment plan as can be expected at this point. The vital signs have been stable. The patient's condition is stable and appropriate for discharge from the emergency department. The patient will pursue further outpatient evaluation with the primary care physician or other designated or consulting physician as outlined in the discharge instructions. The patient and/or caregivers are agreeable to this plan of care and follow-up instructions have been explained in detail. The patient and/or caregivers have received these instruction. The patient/and or caregivers are aware that any significant change in condition or worsening of symptoms should prompt an immediate return to this or the closest emergency department or call 911. CASSANDRA ABAD was seen on 10/05/22 n the Emergency Room. At that time you were treated for an emergent condition, during your visit Laboratory, Radiology and/or other procedures may have been ordered. It is very important that you follow-up with your Primary Care Physician KRISTOPHER CASEY within the next 24- 48 hours to review your Emergency Room visit and the final results of testing that was ordered. Some test results such as Urine Cultures, Blood Cultures, and other cultures if ordered will not be finalized for 24-48 hours. If you do not have a Primary Care Provider please call the medical records department at [phone] ext [phone] to obtain a copy of your results or you may sign into our patient portal to obtain these results by visiting us @ [email or web address] and completing the following steps: 1. Click on the Patient Portal link 2. Click the Patient Self Enrollment Link to complete the enrollment form and entering your 3. Once the enrollment form is completed you will receive an email with a temporary ID and password at the email address you provided. 4. Next choose a user name and password. Your user name must be at least 4 characters long and your password must be at least 4 characters long. 5. Choose a security question from the list and provide your answer to the question. If you already have signed into the Health Portal you may access your Health Care Information 04/11 by the following steps: 1. Login to our website @ [email or web address] 2. Enter your original user name and password. FAQS The [facility] Health Portal is an online tool that contains your Lab Results, Radiology Reports, Visit History, Discharge Instructions and Health Summary Lab and Radiology Results will not be available for 72 hours on the portal. The Portal is a secure site, passwords are encryted and URLs are re-written so they cannot be copied and pasted. You and authorized family members are the only ones who can access your Portal. Also there is a timeout feature that protects your information if you leave the Portal page open. If you have technical difficulty please use the Contact Us link on the page this will allow you to submit any questions you have regarding the Portal or you may contact the Medical Record Department at [phone] ext [phone].
== END 2022-10-05 09:44 | disposition home or self-care (01) ==
LOC: ED 09:26
DX: I80.8 Phlebitis and thrombophlebitis of other sites (principal); I10 Essential (primary) hypertension; Z79.899 Other long term (current) drug therapy
CPT/HCPCS: 99281

== ENCOUNTER 2023-12-16 15:43 | Emergency (ER) | payer MEDICARE ==
[2023-12-16 16:33] VITALS: TEMP 96.8
--- NOTE | 2023-12-16 16:38 | ERPHSYRPT ---
- History of Present Illness Time Seen by Provider: 12/16/23 16:33 Source: patient Exam Limitations: no limitations Physician History: 78-year-old female presents to emergency department for evaluation status post fall. Patient states she was ascending steps lost her balance fell forward hit her head on the frame of the door and now complains of a slight frontal headache as well as pain to her left mid thigh. The fall was mechanical. Not associated with any neuro cardiovascular symptomology. No chest pain or shortness of breath. No nausea vomiting or diaphoresis. No numbness tingling or weakness. Patient is ambulatory. No other injuries reported. No LOC. No neck pain. Cervical spine cleared clinically. Incident occurred today. Patient otherwise feels well. She declined pain medication. Friend at bedside. They voiced no other complaints or concerns at this time. Portions of this note were created with voice recognition technology. There may be grammatical, spelling, punctuation or sound alike errors Timing/Duration: today Severity: moderate Modifying Factors: Improves With: movement, other (Palpation) Associated Symptoms: denies symptoms Allergies/Adverse Reactions: diltiazem HCl [From Cardizem] Allergy (Intermediate, Verified 12/16/23 16:23) Rash Sulfa (Sulfonamide Antibiotics) [Sulfa(Sulfonamide Antibiotics)] Allergy (Intermediate, Verified 12/16/23 16:23) NUMBESS TO FEET stated having numbness in hands and feet betamethasone sodium phosphate [From Celestone] Allergy (Mild, Verified 12/16/23 16:23) IRREGULAR HEARTRATE Tetanus Vaccines and Toxoid [Tetanus] Allergy (Mild, Verified 12/16/23 16:23) Swelling hydrocodone bitartrate [From Vicodin] Adverse Reaction (Intermediate, Verified 12/16/23 16:23) Nausea and Vomiting morphine Adverse Reaction (Intermediate, Verified 12/16/23 16:23) Itching betamethasone [From Celestone] Adverse Reaction (Mild, Verified 12/16/23 16:23) Irregular Heart Beat epinephrine Adverse Reaction (Mild, Verified 12/16/23 16:23) Rapid Heart Beat PPD Allergy (Mild, Uncoded 12/16/23 16:23) Swelling Home Medications: RX: Verapamil HCl Sr [Isoptin Sr] 180 mg PO DAILY 08/20/14 [History] Ergocalciferol (Vitamin D2) [Vitamin D] 50,000 unit PO DAILY 07/24/20 [History] RX: Aspirin 81 gm Chew [Baby Aspirin 81 mg Chew] 1 ea PO DAILY 08/26/20 [History] Hx Tetanus, Diphtheria Vaccination/Date Given: No Hx Influenza Vaccination/Date Given: Yes Hx Pneumococcal Vaccination/Date Given: No - Review of Systems Constitutional: No Symptoms, No Fever, No Chills Eyes: No Symptoms Ears, Nose, & Throat: No Symptoms Respiratory: No Symptoms, No Cough, No Dyspnea Cardiac: No Symptoms, No Chest Pain, No Edema, No Syncope Abdominal/Gastrointestinal: No Symptoms, No Abdominal Pain, No Nausea, No Vomiting, No Diarrhea Genitourinary Symptoms: No Symptoms, No Dysuria Musculoskeletal: No Symptoms, No Back Pain, No Neck Pain Skin: No Symptoms, No Rash Neurological: No Symptoms, No Dizziness, No Focal Weakness, No Sensory Changes Psychological: No Symptoms Endocrine: No Symptoms Hematologic/Lymphatic: No Symptoms Immunological/Allergic: No Symptoms All Other Systems: Reviewed and Negative - Past Medical History Pertinent Past Medical History: Yes Neurological History: Other ENT History: No Pertinent History Cardiac History: Arrhythmia, Other Respiratory History: No Pertinent History, Other Endocrine Medical History: No Pertinent History Musculoskeletal History: Other GI Medical History: No Pertinent History History: No Pertinent History Psycho-Social History: No Pertinent History Female Reproductive Disorders: No Pertinent History Other Medical History: MUSCULAR DYSTROPHY, svt, heart murmur - Past Surgical History Past Surgical History: Yes Neuro Surgical History: No Pertinent History Cardiac: No Pertinent History Respiratory: No Pertinent History Gastrointestinal: No Pertinent History Genitourinary: No Pertinent History Musculoskeletal: No Pertinent History Female Surgical History: No Pertinent History Other Surgical History: GLAND DRAINED IN NECK AN , Left eye sugery May 2019 Significant Family History: no pertinent family hx - Social History Smoking Status: Never smoker Exposure to second hand smoke: No Drug Use: none Patient Lives Alone: Yes - Nursing Vital Signs Nursing Vital Signs: Initial Vital Signs Temperature 96.8 F 12/16/23 16:27 Pulse Rate 63 12/16/23 16:27 Respiratory Rate 20 12/16/23 16:27 Blood Pressure 142/71 12/16/23 16:27 O2 Sat by Pulse Oximetry 100 12/16/23 16:27 Pain Scale Pain Intensity 5 - Physical Exam General Appearance: no apparent distress, alert Eye Exam: PERRL/EOMI, eyes nml inspection Ears, Nose, Throat Exam: normal ENT inspection, TMs normal, pharynx normal, moist mucous membranes Neck Exam: normal inspection, non-tender, supple, full range of motion Respiratory Exam: normal breath sounds, lungs clear, airway intact, No respir atory distress Cardiovascular Exam: regular rate/rhythm, normal heart sounds, normal peripheral pulses Gastrointestinal/Abdomen Exam: soft, normal bowel sounds, No tenderness, No mass Back Exam: normal inspection, normal range of motion, No CVA tenderness, No vertebral tenderness Extremity Exam: normal inspection, normal range of motion, pelvis stable, other (Tenderness to palpation the right lateral thigh. The involved extremities neurovascular tact distally compartments are soft cap refill less than 2 seconds.) Neurologic Exam: alert, oriented x 3, cooperative, normal mood/affect, nml cerebellar function, nml station & gait, sensation nml, other (No focal or later alizing symptoms on neuroexam.), No motor deficits Skin Exam: normal color, warm, dry, No rash Lymphatic Exam: No adenopathy SpO2 Interpretation: normal SpO2: 100 O2 Delivery: Room Air - Course Nursing assessment & vital signs reviewed: Yes - Radiology Exams Femur X-ray Interpretation: Teleradiologist Report (No fracture or dislocation) - CT Exams Head CT Interpretation: Tele-radiologist Report (No acute intracranial pathology) Ordered Tests: Active Orders 24 hr Category Date Time Status FEMUR Stat Exams 12/16/23 16:26 Completed HEAD WITHOUT CONTRAST [CT] Stat Exams 12/16/23 16:26 Completed - Progress Progress: improved Progress Note: 78-year-old female presents to our ED for evaluation status post fall. Patient states she fell forward hit her head and injured her right thigh. CT head negative for acute intracranial pathology. Cervical spine cleared clinically. X-ray right thigh negative for fracture dislocation. Patient reassessed. She is pain-free is now requesting discharge. She voices no other complaints or concerns at this time. The involved extremities neurovascular tact distally compartments are soft cap refill less than 2 seconds. Patient agrees to follow- up with her primary care doctor within 48 hours for reevaluation. Portions of this note were created with voice recognition technology. There may be grammatical, spelling, punctuation or sound alike errors Complexity of problem addressed is moderate acute complicated. No critical care time. Complex of data reviewed and analyzed is moderate. Test ordered test reviewed results analyzed and correlated clinically with history and physical exam. Risk of complication and or risk of morbidity/mortality of patient management is low. Vital stable. Time spent to discharge patient is approximately 10 minutes. Plan of care established for shared decision making. No social determinants of health present impede follow-up. Portions of this note were created with voice recognition technology. There may be grammatical, spelling, punctuation or sound alike errors 12/16/23 17:41 Counseled pt/family regarding: diagnosis, need for follow-up, rad results - Departure Departure Disposition: Home Clinical Impression: Fall, Thigh contusion Condition: Stable Critical Care Time: No Referrals: KRISTOPHER CASEY MD [Primary Care Provider] - Follow up/PCP as directed Additional Instructions: Discharge/Care Plan CASSANDRA ABAD was seen on 12/16/23 in the Emergency Room. The patient was counseled regarding Diagnosis,Lab results, Imaging studies, need for follow up and when to return to the Emergency Room. Prescriptions given: Discharge Note I have spoken with the patient and/or caregivers. I have explained the patient's condition, diagnosis and treatment plan based on the information available to me at this time. I have answered the patient's and/or caregiver's questions and addressed any concerns. The patient and/or caregivers have as good understanding of the patient's diagnosis, condition and treatment plan as can be expected at this point. The vital signs have been stable. The patient's condition is stable and appropriate for discharge from the emergency department. The patient will pursue further outpatient evaluation with the primary care physician or other designated or consulting physician as outlined in the discharge instructions. The patient and/or caregivers are agreeable to this plan of care and follow-up instructions have been explained in detail. The patient and/or caregivers have received these instruction. The patient/and or caregivers are aware that any significant change in condition or worsening of symptoms should prompt an immediate return to this or the closest emergency department or call 911.
--- NOTE | 2023-12-16 17:10 | XRAY ---
Indication: Pain following fall. Comparison: None 2 view right femur demonstrate osteopenia, mild knee degenerative arthropathy, lower lumbar degenerative spondylosis, and mild scattered vascular calcifications. No other bony, articular, or soft tissue abnormalities.
--- NOTE | 2023-12-16 17:10 | XRAY ---
Indication: Head injury following fall. Multiple contiguous axial images obtained through the head without contrast. Comparison: June 29, 2018 Again age-appropriate global atrophy with now minimal periventricular degenerative micro-ischemia bilaterally. No acute intracranial hemorrhage, abnormal extra-axial fluid collection, or mass effect. Fourth ventricle is midline without hydrocephalus. Bony calvarium intact. Visualized paranasal sinuses and mastoid air cells are clear. Impression: Nonacute senile brain.
[2023-12-16 17:44] VITALS: BP 139/55; PULSE 65; RESP 18; O2SAT 100
== END 2023-12-16 17:49 | disposition home or self-care (01) ==
LOC: ED 15:43
DX: S70.12XA Contusion of left thigh, initial encounter (principal); W10.9XXA Fall (on) (from) unspecified stairs and steps, initial encounter; R51.9 Headache, unspecified; Z79.899 Other long term (current) drug therapy
CPT/HCPCS: 70450; 73552; 99283

== ENCOUNTER 2024-05-24 10:41 | Emergency (ER) | payer MEDICARE ==
[2024-05-24 11:05] VITALS: TEMP 97.7
[2024-05-24 11:37] LABS: Hemoglobin 11.8 g/dL (11.2-15.7); Mean Cell Volume 94.7 fL (79.4-94.8); Mean Corpuscular Hemoglobin 31.1 pg (25.6-32.2); Mean Corpuscular Hgb Concent. 32.8 g/dL (32.2-35.5); Mean Platelet Volume 9.4 fL (9.4-12.3); Platelet Count 186 x10^3/uL (182-369); White Blood Count 3.7 x10^3/uL (3.98-10.04)
[2024-05-24 11:49] LABS: ALBUMIN 4.4 g/dL (3.5-5.0); ANION GAP 12.7 MEQ/L (5-15); BILIRUBIN,TOTAL 0.8 mg/dL (0.2-1.3); Creatinine 1 1.51 mg/dL (0.52-1.04); EST GLOMERULAR FILTRATION RATE 35.2 ML/MIN; Potassium 4.7 mmol/L (3.5-5.1); Total Protein 7.3 g/dL (6.3-8.2)
[2024-05-24 12:27] VITALS: PULSE 68
--- NOTE | 2024-05-24 12:59 | ERPHSYRPT ---
- History of Present Illness Time Seen by Provider: 05/24/24 11:45 Source: patient Exam Limitations: no limitations Patient Subjective Stated Complaint: Tachycardia Triage Nursing Assessment: Patient ambulated back to ED and transferred self tob bed. Patient A+O X3. Patient's skin pink, warm and dry. Patient states prior to arriving her pulse was very high. Patient states she has a hx of afib and SVT. Patient states as soon as she arrived to ER her heart rate was lower. Patient states she was told by Dr. Marley to come to ER when this happens. Patient denies pain or discomfort. Patient states she has an intermittent right earache. Timing/Duration: today, improved Associated Symptoms: denies symptoms Allergies/Adverse Reactions: diltiazem HCl [From Cardizem] Allergy (Intermediate, Verified 05/24/24 10:58) Rash Sulfa (Sulfonamide Antibiotics) [Sulfa(Sulfonamide Antibiotics)] Allergy (Intermediate, Verified 05/24/24 10:58) NUMBESS TO FEET stated having numbness in hands and feet betamethasone sodium phosphate [From Celestone] Allergy (Mild, Verified 05/24/24 10:58) IRREGULAR HEARTRATE Tetanus Vaccines and Toxoid [Tetanus] Allergy (Mild, Verified 05/24/24 10:58) Swelling hydrocodone bitartrate [From Vicodin] Adverse Reaction (Intermediate, Verified 05/24/24 10:58) Nausea and Vomiting morphine Adverse Reaction (Intermediate, Verified 05/24/24 10:58) Itching betamethasone [From Celestone] Adverse Reaction (Mild, Verified 05/24/24 10:58) Irregular Heart Beat epinephrine Adverse Reaction (Mild, Verified 05/24/24 10:58) Rapid Heart Beat PPD Allergy (Mild, Uncoded 05/24/24 10:58) Swelling Home Medications: Verapamil HCl Sr [Isoptin Sr] 180 mg PO DAILY 08/20/14 [History] Ergocalciferol (Vitamin D2) [Vitamin D] 50,000 unit PO DAILY 07/24/20 [History] Aspirin 81 gm Chew [Baby Aspirin 81 mg Chew] 1 ea PO DAILY 08/26/20 [History] Hx Tetanus, Diphtheria Vaccination/Date Given: No Hx Influenza Vaccination/Date Given: Yes Hx Pneumococcal Vaccination/Date Given: Yes Immunizations Up to Date: Yes Travel Risk - International Travel Have you traveled outside of the country in past 3 weeks: No - Emerging Infectious Disease Are you exhibiting symptoms associated with any current EIDs: No - Review of Systems Constitutional: No Symptoms Eyes: No Symptoms Ears, Nose, & Throat: No Symptoms Respiratory: No Symptoms Cardiac: No Symptoms Abdominal/Gastrointestinal: No Symptoms Genitourinary Symptoms: No Symptoms Musculoskeletal: No Symptoms Skin: No Symptoms Neurological: No Symptoms Psychological: No Symptoms - Past Medical History Pertinent Past Medical History: Yes Neurological History: No Pertinent History, Other ENT History: No Pertinent History Cardiac History: Arrhythmia, Other Respiratory History: No Pertinent History, Other Endocrine Medical History: No Pertinent History Musculoskeletal History: Other GI Medical History: No Pertinent History History: No Pertinent History Psycho-Social History: No Pertinent History Female Reproductive Disorders: No Pertinent History Other Medical History: MUSCULAR DYSTROPHY, svt, heart murmur - Past Surgical History Past Surgical History: Yes Neuro Surgical History: No Pertinent History Cardiac: No Pertinent History Respiratory: No Pertinent History Gastrointestinal: No Pertinent History Genitourinary: No Pertinent History Musculoskeletal: No Pertinent History Female Surgical History: No Pertinent History Other Surgical History: GLAND DRAINED IN NECK AN , Left eye sugery May 2019 Significant Family History: no pertinent family hx - Social History Smoking Status: Never smoker Exposure to second hand smoke: No Drug Use: none Patient Lives Alone: Yes - Social Determinants of Health Will the patient participate in the screening: Yes Do you worry about a steady place to live?: No Do you have any problems with any of the following?: No known problems In the past 12 months,have you had to go without utilities?: No Transportation Issues: No Has anyone in your support network made you feel unsafe?: No Have you or anyone in your house had to go without enough: No - Nursing Vital Signs Nursing Vital Signs: Initial Vital Signs Blood Pressure 153/71 05/24/24 10:58 O2 Sat by Pulse Oximetry 100 05/24/24 10:58 Pain Scale Pain Intensity 0 - Physical Exam General Appearance: no apparent distress Eye Exam: PERRL/EOMI Ears, Nose, Throat Exam: normal ENT inspection Neck Exam: normal inspection Respiratory Exam: normal breath sounds Cardiovascular Exam: regular rate/rhythm Gastrointestinal/Abdomen Exam: soft, normal bowel sounds SpO2: 100 Ordered Tests: Active Orders 24 hr Category Date Time Status CBC Stat Lab 05/24/24 11:36 Completed CMP Stat Lab 05/24/24 11:36 Completed Lab/Rad Data: Laboratory Result Diagrams 05/24/24 11:36 05/24/24 11:36 Laboratory Results 05/24/24 05/24/24 Range/Units 11:36 11:36 WBC 3.7 L (3.98-10.04) x10^3/uL RBC 3.80 L (3.93-5.22) x10^6/uL Hgb 11.8 (11.2-15.7) g/dL Hct 36.0 (34.1-44.9) % MCV 94.7 (79.4-94.8) fL MCH 31.1 (25.6-32.2) pg MCHC 32.8 (32.2-35.5) g/dL RDW 13.0 (11.7-14.4) % Plt Count 186 (182-369) x10^3/uL MPV 9.4 (9.4-12.3) fL Sodium 138 (135-145) mmol/L Potassium 4.7 (3.5-5.1) mmol/L Chloride 106 (98-107) mmol/L Carbon Dioxide 24 (22-30) mmol/L Anion Gap 12.7 (5-15) MEQ/L BUN 36 H (7-17) mg/dL Creatinine 1.51 H (0.52-1.04) mg/dL Estimated GFR 35.2 ML/MIN Glucose 93 (74-106) mg/dL Calcium 9.0 (8.4-10.2) mg/dL Total Bilirubin 0.80 (0.2-1.3) mg/dL AST 32 (14-36) U/L ALT 20 (0-35) U/L Alkaline Phosphatase 60 (38-126) U/L Serum Total Protein 7.3 (6.3-8.2) g/dL Albumin 4.4 (3.5-5.0) g/dL - Progress Progress Note: pts tachycardia resolved upon presentation - labs were drawn - she was informed of the need for cardiac follow up and holter monitor - she feels comfortable going home - she has no other complaints at this time and her rate has been normal during her stay in the department 05/24/24 12:57 Medical Desision Making - Discussion of managment Agreed on:: need for follow-up Will see patient: in hospital - Departure Departure Disposition: Home Clinical Impression: Palpitations Condition: Stable Critical Care Time: No Referrals: KRISTOPHER CASEY MD [Primary Care Provider] - Follow up/PCP as directed
[2024-05-24 13:03] VITALS: BP 164/74; RESP 18; O2SAT 99
== END 2024-05-24 13:13 | disposition home or self-care (01) ==
LOC: ED 10:41
DX: R00.2 Palpitations (principal); Z79.899 Other long term (current) drug therapy
CPT/HCPCS: 36415; 80053; 85027; 99282; 99283

== ENCOUNTER 2024-12-25 11:54 | Emergency (ER) | payer MEDICARE ==
--- NOTE | 2024-12-25 12:14 | ERPHSYRPT ---
- History of Present Illness Time Seen by Provider: 12/25/24 12:14 Source: patient, family, old records Exam Limitations: no limitations Physician History: This is a 79-year-old white female patient brought to the emergency department by private vehicle accompanied by her son and is a patient of Dr. Casey with a complaint of chronic recurring headaches and neck pain as well as palpitations. The palpitations began this morning. Patient did try coughing and other Valsalva maneuvers without resolution of her palpitations. She is not short of breath and her room air oxygen saturation level is 99 to 100%. Her heart rate is in the 150s beats per minute. Patient has had chronic intermittent head and neck pain. She feels this is secondary to CPAP issues. However this morning there was no resolution of the headache or neck pain. Patient does not have chest pain or abdominal pain. She has had no nausea vomiting or diarrhea symptoms. Patient has a history of SVT and atrial fibrillation. She is allergic to diltiazem and is on verapamil. Activities at Onset: none Quality: other (No chest pain) Chest Pain Radiation: no radiation Severity of Pain-Max: none Severity of Pain-Current: none Nitro Today/Relief: no nitro taken today Aspirin Treatment Today: 81 mg x 1, provided at home Associated Symptoms: denies symptoms Prior Chest Pain/Cardiac Workup: no prior chest pain Allergies/Adverse Reactions: diltiazem HCl [From Cardizem] Allergy (Intermediate, Verified 10/21/24 22:56) Rash Sulfa (Sulfonamide Antibiotics) [Sulfa(Sulfonamide Antibiotics)] Allergy (Intermediate, Verified 10/21/24 22:56) NUMBESS TO FEET stated having numbness in hands and feet betamethasone sodium phosphate [From Celestone] Allergy (Mild, Verified 10/21/24 22:56) IRREGULAR HEARTRATE Tetanus Vaccines and Toxoid [Tetanus] Allergy (Mild, Verified 10/21/24 22:56) Swelling hydrocodone bitartrate [From Vicodin] Adverse Reaction (Intermediate, Verified 10/21/24 22:56) Nausea and Vomiting morphine Adverse Reaction (Intermediate, Verified 10/21/24 22:56) Itching betamethasone [From Celestone] Adverse Reaction (Mild, Verified 10/21/24 22:56) Irregular Heart Beat epinephrine Adverse Reaction (Mild, Verified 10/21/24 22:56) Rapid Heart Beat PPD Allergy (Mild, Uncoded 10/21/24 22:56) Swelling Home Medications: Verapamil HCl Sr [Isoptin Sr] 180 mg PO DAILY 08/20/14 [History] Aspirin 81 gm Chew [Baby Aspirin 81 mg Chew] 1 ea PO DAILY 08/26/20 [History] Hx Tetanus, Diphtheria Vaccination/Date Given: No Hx Influenza Vaccination/Date Given: No Hx Pneumococcal Vaccination/Date Given: Yes Travel Risk - International Travel Have you traveled outside of the country in past 3 weeks: No - Emerging Infectious Disease Are you exhibiting symptoms associated with any current EIDs: No - Review of Systems Constitutional: No Symptoms Eyes: No Symptoms Ears, Nose, & Throat: No Symptoms Respiratory: No Symptoms Cardiac: Palpitations, No Chest Pain Abdominal/Gastrointestinal: No Symptoms Genitourinary Symptoms: No Symptoms Musculoskeletal: Neck Pain (Chronic intermittent) Skin: No Symptoms Neurological: Headache (Chronic intermittent) Psychological: No Symptoms Endocrine: No Symptoms Hematologic/Lymphatic: No Symptoms Immunological/Allergic: No Symptoms All Other Systems: Reviewed and Negative - Past Medical History Pertinent Past Medical History: Yes Neurological History: No Pertinent History ENT History: No Pertinent History Cardiac History: Arrhythmia, Other Respiratory History: No Pertinent History Endocrine Medical History: Other Musculoskeletal History: Muscular Dystrophy GI Medical History: No Pertinent History History: No Pertinent History Psycho-Social History: No Pertinent History Female Reproductive Disorders: No Pertinent History Other Medical History: SVT, HEART MUMUR, AFIB. - Past Surgical History Past Surgical History: Yes Neuro Surgical History: No Pertinent History Cardiac: No Pertinent History Respiratory: No Pertinent History Gastrointestinal: No Pertinent History Genitourinary: No Pertinent History Musculoskeletal: No Pertinent History Female Surgical History: No Pertinent History Other Surgical History: GLAND DRAINED IN NECK AN INFANT, Left eye sugery May 2019 Significant Family History: no pertinent family hx - Social History Smoking Status: Smoker, status unknown Exposure to second hand smoke: No Drug Use: none - Social Determinants of Health Will the patient participate in the screening: Yes Do you worry about a steady place to live?: No In the past 12 months,have you had to go without utilities?: No Transportation Issues: No Has anyone in your support network made you feel unsafe?: No Have you or anyone in your house had to go w/o enough food: No - Nursing Vital Signs Nursing Vital Signs: Initial Vital Signs Temperature 97.9 F 12/25/24 11:55 Pulse Rate 153 H 12/25/24 11:55 Respiratory Rate 26 H 12/25/24 11:55 Blood Pressure 122/86 12/25/24 11:55 O2 Sat by Pulse Oximetry 99 12/25/24 11:55 Pain Scale Pain Intensity 5 - Physical Exam General Appearance: no apparent distress, alert, anxiety Eye Exam: PERRL/EOMI, eyes nml inspection Ears, Nose, Throat Exam: normal ENT inspection, moist mucous membranes Neck Exam: normal inspection, non-tender, supple, full range of motion Respiratory Exam: normal breath sounds, lungs clear, airway intact, No chest tenderness, No respiratory distress Cardiovascular Exam: tachycardia Gastrointestinal/Abdomen Exam: soft, normal bowel sounds, No tenderness Pelvic Exam: not done Rectal Exam: not done Back Exam: normal inspection, normal range of motion, No CVA tenderness, No vertebral tenderness Extremity Exam: normal inspection, normal range of motion, pelvis stable Neurologic Exam: alert, oriented x 3, cooperative, 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 There is no evidence of acute ischemia. I read this as supraventricular tachycardia. The QRSs are marching out regularly. The computer read as atrial fibrillation. I disagree with this) Ordered Tests: Active Orders 24 hr Category Date Time Status EKG-ER Only STAT Care 12/25/24 12:38 Active EKG-ER Only STAT Care 12/25/24 12:40 Active IV Insertion STAT Care 12/25/24 12:38 Active Pulse Oximetry (ED) STAT Care 12/25/24 12:38 Active CERVICAL SPINE WO CONTRAST [CT] Stat Exams 12/25/24 12:41 Completed HEAD WITHOUT CONTRAST [CT] Stat Exams 12/25/24 12:41 Completed ARTERIAL BLOOD GASES Urgent Lab 12/25/24 12:38 Ordered CBC W DIFF Stat Lab 12/25/24 12:15 Completed CMP Stat Lab 12/25/24 12:15 Completed MAGNESIUM Stat Lab 12/25/24 12:15 Completed NT PRO BNPII Stat Lab 12/25/24 12:15 Completed PROTIME WITH INR Stat Lab 12/25/24 12:15 Completed TROPONIN Q4H Lab 12/25/24 12:15 Completed TROPONIN Q4H Lab 12/25/24 16:45 Ordered TROPONIN Q4H Lab 12/25/24 20:45 Ordered UA W/RFX UR CULTURE Stat Lab 12/25/24 13:18 Completed Medication Summary Discontinued Medications Generic Name Dose Route Start Last Admin Trade Name Higinio PRN Reason Stop Dose Admin Adenosine Confirm 12/25/24 12:30 Adenosine 6 Mg/2 Ml Vial Administered 12/25/24 12:31 Dose 6 mg IV .STK-MED ONE Adenosine 6 mg 12/25/24 12:40 12/25/24 12:40 Adenosine 6 Mg/2 Ml Vial IV 12/25/24 12:41 6 mg STAT ONE Administration Lab/Rad Data: Laboratory Result Diagrams 12/25/24 12:15 12/25/24 12:15 Laboratory Results 12/25/24 12/25/24 12/25/24 Range/Units 13:18 12:15 12:15 WBC (3.98-10.04) x10^3/uL RBC (3.93-5.22) x10^6/uL Hgb (11.2-15.7) g/dL Hct (34.1-44.9) % MCV (79.4-94.8) fL MCH (25.6-32.2) pg MCHC (32.2-35.5) g/dL RDW (11.7-14.4) % Plt Count (182-369) x10^3/uL MPV (9.4-12.3) fL Gran % (34.0-71.1) % Immature Gran % (Auto) (0.001-0.429) % Nucleat RBC Rel Count (0.00-0.2) % Eos # (Auto) (0.04-0.36) x10^3/uL Immature Gran # (Auto) (0.001-0.031) x10^3u/L Absolute Lymphs (auto) (1.18-3.74) x10^3/uL Absolute Monos (auto) (0.24-0.86) x10^3/uL Absolute Nucleated RBC (0.00-0.012) x10^3u/L Lymphocytes % (19.3-51.7) % Monocytes % (4.7-12.5) % Eosinophils % (0.7-5.8) % Basophils % (0.1-1.2) % Absolute Granulocytes (1.56-6.13) x10^3/uL Basophils # (0.01-0.08) x10^3/uL PT 10.2 (9.4-12.5) SECONDS INR 0.93 (0.8-3.0) Sodium (135-145) mmol/L Potassium (3.5-5.1) mmol/L Chloride (98-107) mmol/L Carbon Dioxide (22-30) mmol/L Anion Gap (5-15) MEQ/L BUN (7-17) mg/dL Creatinine (0.52-1.04) mg/dL Estimated GFR ML/MIN Glucose (74-106) mg/dL Calcium (8.4-10.2) mg/dL Magnesium (1.6-2.3) mg/dL Total Bilirubin (0.2-1.3) mg/dL AST (14-36) U/L ALT (0-35) U/L Alkaline Phosphatase (38-126) U/L Troponin I < 0.012 (0.000-0.033) ng/mL NT-Pro-B Natriuret Pep (<300) pg/mL Serum Total Protein (6.3-8.2) g/dL Albumin (3.5-5.0) g/dL Urine Color Yellow (Yellow) Urine Appearance Clear (Clear) Urine pH 8.0 (4.6-8.0) Ur Specific [place] <=1.005 (1.005-1.030) Urine Protein Negative (Negative) Urine Glucose (UA) Negative (Negative) mg/dL Urine Ketones Negative (Negative) Urine Blood Negative (Negative) Urine Nitrite Negative (Negative) Urine Bilirubin Negative (Negative) Urine Urobilinogen 0.2 (0.2) mg/dL Ur Leukocyte Esterase Trace A (Negative) U Hyaline Cast (Auto) NONE SEEN (0-2) /LPF Urine Microscopic RBC 0-2 (0-5) /HPF Urine Microscopic WBC 0-2 (0-5) /HPF Ur Epithelial Cells None Seen (None Seen) /HPF Urine Bacteria None Seen (None Seen) /HPF Urine Culture Reflexed NO (NO) 12/25/24 12/25/24 Range/Units 12:15 12:15 WBC 6.3 (3.98-10.04) x10^3/uL RBC 3.93 (3.93-5.22) x10^6/uL Hgb 12.5 (11.2-15.7) g/dL Hct 38.7 (34.1-44.9) % MCV 98.5 H (79.4-94.8) fL MCH 31.8 (25.6-32.2) pg MCHC 32.3 (32.2-35.5) g/dL RDW 12.7 (11.7-14.4) % Plt Count 196 (182-369) x10^3/uL MPV 10.2 (9.4-12.3) fL Gran % 50.0 (34.0-71.1) % Immature Gran % (Auto) 0.3 (0.001-0.429) % Nucleat RBC Rel Count 0.0 (0.00-0.2) % Eos # (Auto) 0.24 (0.04-0.36) x10^3/uL Immature Gran # (Auto) 0.02 (0.001-0.031) x10^3u/L Absolute Lymphs (auto) 2.35 (1.18-3.74) x10^3/uL Absolute Monos (auto) 0.50 (0.24-0.86) x10^3/uL Absolute Nucleated RBC 0.00 (0.00-0.012) x10^3u/L Lymphocytes % 37.2 (19.3-51.7) % Monocytes % 7.9 (4.7-12.5) % Eosinophils % 3.8 (0.7-5.8) % Basophils % 0.8 (0.1-1.2) % Absolute Granulocytes 3.16 (1.56-6.13) x10^3/uL Basophils # 0.05 (0.01-0.08) x10^3/uL PT (9.4-12.5) SECONDS INR (0.8-3.0) Sodium 137 (135-145) mmol/L Potassium 4.4 (3.5-5.1) mmol/L Chloride 105 (98-107) mmol/L Carbon Dioxide 23 (22-30) mmol/L Anion Gap 13.7 (5-15) MEQ/L BUN 27 H (7-17) mg/dL Creatinine 1.17 H (0.52-1.04) mg/dL Estimated GFR 47.5 ML/MIN Glucose 100 (74-106) mg/dL Calcium 9.0 (8.4-10.2) mg/dL Magnesium 2.2 (1.6-2.3) mg/dL Total Bilirubin 0.60 (0.2-1.3) mg/dL AST 28 (14-36) U/L ALT 16 (0-35) U/L Alkaline Phosphatase 83 (38-126) U/L Troponin I (0.000-0.033) ng/mL NT-Pro-B Natriuret Pep 218 (<300) pg/mL Serum Total Protein 7.0 (6.3-8.2) g/dL Albumin 4.2 (3.5-5.0) g/dL Urine Color (Yellow) Urine Appearance (Clear) Urine pH (4.6-8.0) Ur Specific [place] (1.005-1.030) Urine Protein (Negative) Urine Glucose (UA) (Negative) mg/dL Urine Ketones (Negative) Urine Blood (Negative) Urine Nitrite (Negative) Urine Bilirubin (Negative) Urine Urobilinogen (0.2) mg/dL Ur Leukocyte Esterase (Negative) U Hyaline Cast (Auto) (0-2) /LPF Urine Microscopic RBC (0-5) /HPF Urine Microscopic WBC (0-5) /HPF Ur Epithelial Cells (None Seen) /HPF Urine Bacteria (None Seen) /HPF Urine Culture Reflexed (NO) - Progress Progress: improved, re-examined Air Movement: good Progress Note: 12/25/24 13:12 My medical decision making and the assignment of high complexity of this patient's medical issue today is based on review of the patient's past medical history, review of the patient's medication list, review the patient drug allergy list, history present illness and physical findings on examination. The workup of this patient includes placement of intravenous line, twelve-lead EKG, infusion of adenosine 6 mg intravenously, CBC, CMP, magnesium level, troponin level, urinalysis, CT scan of the head and cervical spine. ABG. Differential diagnosis includes but is not limited to SVT, atrial fibrillation, electrolyte abnormalities, arrhythmia, myocardial infarction, dehydration, urinary tract infection, acute intracranial abnormality, cervical spine fracture/subluxation. The repeat twelve-lead EKG after 6 mg of intravenous. Adenosine was interpreted by me. This was performed on 12/25/2024 at 1234. Heart rate was 87 bpm. The rhythm is normal sinus rhythm. There is borderline left axis deviation. There is normal QRS and normal intervals. There is no evidence of acute ischemia. QTc is 426 12/25/24 15:20 I interpreted the patient's laboratory data results. Based on laboratory data results, there are no acute, emergent medical issues. I reassessed the patient just at the time of discharge and she is doing very well. She has normal sinus rhythm on the monitor and her heart rate is staying in the high 50s to low 60s. She is hemodynamically stable. She has no chest pain and she is not short of breath. The following CT scans were interpreted by the radiologist and I reviewed the impressions. The impressions are as follows: CT scan of the head shows no evidence of acute infarction, hemorrhage or mass effect. There are chronic microvascular changes. There are age-related brain involutional changes. 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 Recommend outpatient MRI for further assessment. Blood Culture(s) Obtained: No Antibiotics given: No Counseled pt/family regarding: lab results, diagnosis, rad results Medical Desision Making - Independent Historian Additional History obtained from: Family - Diagnostic Testing Diagnostic test were ordered, analyzed, and reviewed by me: Yes Radiological Interpretation: Reviewed by me, Teleradiologist Report - Risk of complications Low Risk: Low risk of morbidity from additional dx testing or treatment - Departure Departure Disposition: Home Clinical Impression: SVT (supraventricular tachycardia) Condition: Stable Critical Care Time: No Referrals: KRISTOPHER CASEY MD [Primary Care Provider, [facility]] - Follow up/PCP as directed Additional Instructions: Continue your medications as prescribed. If your symptoms recur, return to the emergency department. Call your adjunct teacher and primary care provider on 12/27/2024, to make arrangements for follow-up appointment for further evaluation management.
[2024-12-25] MEDS ORDERED: Adenocard IV 6 MG/2 ML IV ONE (12:30)
[2024-12-25] MEDS: Adenocard IV 6 MG/2 ML IV ONE (12:40)
[2024-12-25 12:48] LABS: BASOPHIL % 0.8 % (0.1-1.2); Basophil (Absolute #) 0.05 x10^3/uL (0.01-0.08); Eosinophil (Absolute #) 0.24 x10^3/uL (0.04-0.36); Hematocrit 38.7 % (34.1-44.9); Hemoglobin 12.5 g/dL (11.2-15.7); IMMATURE GRAN # 0.02 x10^3u/L (0.001-0.031); IMMATURE GRAN % 0.3 % (0.001-0.429); Lymphocyte (Absolute #) 2.35 x10^3/uL (1.18-3.74); Mean Corpuscular Hemoglobin 31.8 pg (25.6-32.2); Mean Corpuscular Hgb Concent. 32.3 g/dL (32.2-35.5); Monocyte (Absolute #) 0.50 x10^3/uL (0.24-0.86); NUCLEATED RBC # 0.00 x10^3u/L (0.00-0.012); NUCLEATED RBC % 0.0 % (0.00-0.2); Platelet Count 196 x10^3/uL (182-369); Red Blood Count 3.93 x10^6/uL (3.93-5.22); White Blood Count 6.3 x10^3/uL (3.98-10.04)
[2024-12-25 12:52] VITALS: TEMP 97.9
[2024-12-25 12:54] LABS: INR 0.93 (0.8-3.0); PROTIME 10.2 SECONDS (9.4-12.5)
[2024-12-25 12:59] VITALS: O2SAT 100
[2024-12-25 13:13] LABS: Calcium 9.0 mg/dL (8.4-10.2); Carbon Dioxide 23.0 mmol/L (22-30); Creatinine 1 1.17 mg/dL (0.52-1.04); EST GLOMERULAR FILTRATION RATE 47.5 ML/MIN; Glucose 100.0 mg/dL (74-106); NT PRO BNPII 218.0 pg/mL (<300); Potassium 4.4 mmol/L (3.5-5.1); SGOT/AST 28.0 U/L (14-36); SGPT/ALT 16.0 U/L (0-35); Total Protein 7.0 g/dL (6.3-8.2)
[2024-12-25 13:54] LABS: Glucose, Urine Negative (Negative); Protein,Urine Dip Negative (Negative); RBC 0-2 /HPF (0-5); WBC 0-2 /HPF (0-5)
--- NOTE | 2024-12-25 14:00 | XRAY ---
CLINICAL HISTORY: Headache and neck pain COMPARISON: Reviewed CT 12/16/2023. TECHNIQUE: Axial non-contrast CT scan of the brain was performed from the skull base to the high parietal region. One of the following dose reduction techniques were utilized for this exam: Automated exposure control, adjustment of the mA and/or kV according to patient size, and use of iterative reconstruction. FINDINGS: Brain Parenchyma: There are multiple predominantly right-sided, tiny, ill-defined hypodense foci and small areas noted in the subcortical and periventricular white matter bilaterally associated with bilateral periventricular patchy symmetrical hypodense areas capping both ventricles, suggestive of microvascular ischemic changes. No evidence of acute infarct, hemorrhage, or mass effect. Ventricular System: Prominent ventricular system, with no midline shift or deformity. Subarachnoid Spaces: Prominent sulci and cisterns. No evidence of subarachnoid hemorrhage or extra-axial fluid collections. Cerebellum and Brainstem: No masses, lesions, or areas of abnormal density. Orbits: Normal appearance of the globes, optic nerves, and extraocular muscles. No evidence of orbital masses or abnormal density. Sinuses: Clear paranasal sinuses. No evidence of sinusitis or mucosal thickening. Mastoid Air Cells: Clear mastoid air cells. No evidence of mastoiditis. Skull: Normal skull morphology. IMPRESSION: 1. No evidence of acute infarct, hemorrhage, or mass effect. 2. Chronic microvascular ischemic changes. 3. Age-related brain involutional changes. 4. No significant interval changes. Electronically Signed by: Leif Keith MD. (12/25/2024 13:58:05 EDT)
--- NOTE | 2024-12-25 14:26 | XRAY ---
CLINICAL HISTORY: Headache and neck pain COMPARISON: No previous studies are available for comparison. TECHNIQUE: A CT scan of the cervical spine was performed without the administration of intravenous contrast. Contiguous axial images were obtained from the skull base to the upper thoracic spine. Coronal and sagittal reformatted images were also reviewed. One of the following dose reduction techniques was utilized for this exam. Automated exposure control, adjustment of the mA and/or kV according to patient size, and use of iterative reconstruction. DLP: 363.72 mGy-cm, CTDI: 18.37 mGy. FINDINGS: Vertebrae: Straightened cervical curve, denoting neck muscle spasm. Grade I anterior subluxation of C4 over C5. The vertebral bodies are normal in height and alignment. No evidence of acute fracture or dislocation. The cortical and trabecular bone patterns are normal. No signs of lytic or sclerotic lesions. Normal configuration of the posterior elements. Intervertebral Discs: Cervical spondylotic changes, evident by marginal osteophytosis along the opposing vertebral end plates. Narrowed C5-6 and C6-7 disc spaces. No calcifications or ossifications noted within the discs. [id number] analysis: C2-C3: There is a 2.3 mm broad base disc protrusion, effacing the ventral subarachnoid space. No spinal canal or foraminal stenosis. C3-C4: There is a 2.8 mm central disc protrusion effacing the ventral subarachnoid space. No spinal canal or foraminal stenosis. C4-C5: There is a 4.1 mm diffuse disc bulge, with bony hypertrophy, indenting the ventral subarachnoid space, indenting the cord, and causing mild to moderate right foraminal stenosis. Associated right neurocentral and right facet arthropathy adds to right foraminal compromise. No left foraminal or spinal canal stenosis. C5-C6: There is a 3.2 mm asymmetrical disc bulge, with right posterolateral preponderance, and bony hypertrophy, indenting the ventral subarachnoid space, indenting the cord, and causing mild bi-foraminal stenosis. No spinal canal stenosis. C6-C7: a 3.8 mm diffuse disc bulge, with bony hypertrophy, indenting the ventral aspect of the cord and causing moderate bi-foraminal stenosis. C7-T1: There is no significant disc pathology. No spinal canal or foraminal stenosis Facet Joints: L4-5 right neurocentral and right facet arthropathy add to right foraminal compromise at this level Prevertebral Soft Tissues: The prevertebral soft tissues are normal in thickness without evidence of mass or abnormal fluid collection. Additional Findings: No other significant findings are noted in the visualized soft tissue structures or bony elements. IMPRESSION: 1. Cervical spondylodegenerative changes, with multilevel disc bulges and protrusions as described, causing variable degrees of foraminal stenosis. Further MRI assessment, as clinically required, is advised. 2. Straightened cervical curve, denoting neck muscle spasm. 3. Grade I anterior subluxation of C4 over C5. Electronically Signed by: Leif Keith MD. (12/25/2024 14:23:57 EDT)
[2024-12-25 15:39] VITALS: BP 148/71; PULSE 65; RESP 12
== END 2024-12-25 15:39 | disposition home or self-care (01) ==
LOC: ED 11:54
DX: I47.10 Supraventricular tachycardia, unspecified (principal); R51.9 Headache, unspecified; M54.2 Cervicalgia; Z79.899 Other long term (current) drug therapy

== ENCOUNTER 2025-02-22 22:29 | Emergency (ER) | payer MEDICARE ==
[2025-02-22 22:52] VITALS: TEMP 98.3
--- NOTE | 2025-02-22 22:57 | ERPHSYRPT ---
- History of Present Illness Time Seen by Provider: 02/22/25 22:50 Source: patient Patient Subjective Stated Complaint: "I've been on Verapamil for a long time and they switched waste baler of the medication and now I feel like my heart beat is really irregular. It started yesterday but is worse today." Triage Nursing Assessment: Pt presents to ER with complaints of "irregular heartbeat" that she noticed yesterday and worsened today. Pt has history of A- fib and has been on Verapamil for years but the old waste baler is unknown but she has been now taking Verapamil from a [employer] and Teva/Actavis waste baler. She denies any symptoms of dizziness, lightheadedness, pain, shortness of breath. Pt skin is pink, warm, and dry. Respirations are easy. Appears to be in sinus rhythm at this time. Physician History: This is a 79-year-old female who presented for palpitations. She reports a history of A-fib and muscular dystrophy. She denies any chest pain shortness of breath fever or other associated symptoms. She reports for the last 24 hours she has felt some irregular heartbeat similar to her A-fib. She arrives by ambulance in sinus rhythm. Her associated symptoms. Patient is concerned that her verapamil was changed to a new provider and although dose is same she thinks this may be the etiology of her symptoms. Allergies/Adverse Reactions: diltiazem HCl [From Cardizem] Allergy (Intermediate, Verified 02/22/25 22:39) Rash Sulfa (Sulfonamide Antibiotics) [Sulfa(Sulfonamide Antibiotics)] Allergy (Intermediate, Verified 02/22/25 22:39) NUMBESS TO FEET stated having numbness in hands and feet betamethasone sodium phosphate [From Celestone] Allergy (Mild, Verified 02/22/25 22:39) IRREGULAR HEARTRATE Tetanus Vaccines and Toxoid [Tetanus] Allergy (Mild, Verified 02/22/25 22:39) Swelling hydrocodone bitartrate [From Vicodin] Adverse Reaction (Intermediate, Verified 02/22/25 22:39) Nausea and Vomiting morphine Adverse Reaction (Intermediate, Verified 02/22/25 22:39) Itching betamethasone [From Celestone] Adverse Reaction (Mild, Verified 02/22/25 22:39) Irregular Heart Beat epinephrine Adverse Reaction (Mild, Verified 02/22/25 22:39) Rapid Heart Beat PPD Allergy (Mild, Uncoded 02/22/25 22:39) Swelling Home Medications: Verapamil HCl Sr [Isoptin Sr] 180 mg PO DAILY 08/20/14 [History] Aspirin 81 gm Chew [Baby Aspirin 81 mg Chew] 1 ea PO DAILY 08/26/20 [History] Cholecalciferol (Vitamin D3) [Vitamin D3] 25 mcg PO DAILY 02/22/25 [History] Hx Tetanus, Diphtheria Vaccination/Date Given: No Hx Influenza Vaccination/Date Given: No Hx Pneumococcal Vaccination/Date Given: No Immunizations Up to Date: No Travel Risk - International Travel Have you traveled outside of the country in past 3 weeks: No - Emerging Infectious Disease Are you exhibiting symptoms associated with any current EIDs: No - Review of Systems Constitutional: No Fever, No Chills Eyes: No Symptoms Ears, Nose, & Throat: No Symptoms Respiratory: No Cough, No Dyspnea Cardiac: Palpitations, No Chest Pain, No Edema, No Syncope Abdominal/Gastrointestinal: No Abdominal Pain, No Nausea, No Vomiting, No Diarrhea Genitourinary Symptoms: No Dysuria Musculoskeletal: No Back Pain, No Neck Pain Skin: No Rash Neurological: No Dizziness, No Focal Weakness, No Sensory Changes Psychological: No Symptoms Endocrine: No Symptoms All Other Systems: Reviewed and Negative - Past Medical History Pertinent Past Medical History: Yes Neurological History: No Pertinent History ENT History: No Pertinent History Cardiac History: Arrhythmia, Other Respiratory History: No Pertinent History Endocrine Medical History: Other Musculoskeletal History: Muscular Dystrophy GI Medical History: No Pertinent History History: No Pertinent History Psycho-Social History: No Pertinent History Female Reproductive Disorders: No Pertinent History Other Medical History: SVT, HEART MUMUR, AFIB. - Past Surgical History Past Surgical History: Yes Neuro Surgical History: No Pertinent History Cardiac: No Pertinent History Respiratory: No Pertinent History Gastrointestinal: No Pertinent History Genitourinary: No Pertinent History Musculoskeletal: No Pertinent History Female Surgical History: No Pertinent History Other Surgical History: GLAND DRAINED IN NECK AN INFANT, Left eye sugery May 2019 Significant Family History: no pertinent family hx - Social History Smoking Status: Never smoker Exposure to second hand smoke: No Drug Use: marijuana - Social Determinants of Health Will the patient participate in the screening: Yes Do you worry about a steady place to live?: No Do you have any problems with any of the following?: No known problems In the past 12 months,have you had to go without utilities?: No Transportation Issues: No Has anyone in your support network made you feel unsafe?: No Have you or anyone in your house had to go w/o enough food: No - Nursing Vital Signs Nursing Vital Signs: Initial Vital Signs Pulse Rate 59 L 02/22/25 22:38 Respiratory Rate 18 02/22/25 22:38 Blood Pressure 157/71 02/22/25 22:38 O2 Sat by Pulse Oximetry 98 02/22/25 22:38 Pain Scale Pain Intensity 0 - Physical Exam General Appearance: no apparent distress, alert Eye Exam: PERRL/EOMI, eyes nml inspection Ears, Nose, Throat Exam: normal ENT inspection, TMs normal, pharynx normal, moist mucous membranes Neck Exam: normal inspection, non-tender, supple, full range of motion Respiratory Exam: normal breath sounds, lungs clear, No respiratory distress Cardiovascular Exam: regular rate/rhythm, normal heart sounds, normal peripheral pulses Gastrointestinal/Abdomen Exam: soft, normal bowel sounds, No tenderness, No mass Back Exam: normal inspection, normal range of motion, No CVA tenderness, No vertebral tenderness Extremity Exam: normal inspection, normal range of motion, pelvis stable Neurologic Exam: alert, oriented x 3, cooperative, normal mood/affect, nml cerebellar function, nml station & gait, sensation nml, No motor deficits Skin Exam: normal color, warm, dry, No rash Lymphatic Exam: No adenopathy SpO2: 100 Ordered Tests: Active Orders 24 hr Category Date Time Status EKG-ER Only STAT Care 02/22/25 22:50 Active CHEST 1 VIEW (PORTABLE) Stat Exams 02/22/25 22:49 Taken CBC W DIFF Stat Lab 02/22/25 00:13 Completed CMP Stat Lab 02/22/25 00:13 Completed TROPONIN Q4H Lab 02/22/25 00:13 Completed TROPONIN Q4H Lab 02/23/25 03:00 Ordered TROPONIN Q4H Lab 02/23/25 07:00 Ordered Lab/Rad Data: Laboratory Result Diagrams 02/22/25 00:13 02/22/25 00:13 Laboratory Results 02/22/25 02/22/25 02/22/25 Range/Units 00:13 00:13 00:13 WBC 5.8 (3.98-10.04) x10^3/uL RBC 4.23 (3.93-5.22) x10^6/uL Hgb 13.1 (11.2-15.7) g/dL Hct 41.0 (34.1-44.9) % MCV 96.9 H (79.4-94.8) fL MCH 31.0 (25.6-32.2) pg MCHC 32.0 L (32.2-35.5) g/dL RDW 12.8 (11.7-14.4) % Plt Count 201 (182-369) x10^3/uL MPV 10.2 (9.4-12.3) fL Gran % 56.4 (34.0-71.1) % Immature Gran % (Auto) 0.3 (0.001-0.429) % Nucleat RBC Rel Count 0.0 (0.00-0.2) % Eos # (Auto) 0.10 (0.04-0.36) x10^3/uL Immature Gran # (Auto) 0.02 (0.001-0.031) x10^3u/L Absolute Lymphs (auto) 1.89 (1.18-3.74) x10^3/uL Absolute Monos (auto) 0.49 (0.24-0.86) x10^3/uL Absolute Nucleated RBC 0.00 (0.00-0.012) x10^3u/L Lymphocytes % 32.5 (19.3-51.7) % Monocytes % 8.4 (4.7-12.5) % Eosinophils % 1.7 (0.7-5.8) % Basophils % 0.7 (0.1-1.2) % Absolute Granulocytes 3.28 (1.56-6.13) x10^3/uL Basophils # 0.04 (0.01-0.08) x10^3/uL Sodium 134 L (135-145) mmol/L Potassium 4.6 (3.5-5.1) mmol/L Chloride 103 (98-107) mmol/L Carbon Dioxide 23 (22-30) mmol/L Anion Gap 13.3 (5-15) MEQ/L BUN 40 H (7-17) mg/dL Creatinine 1.47 H (0.52-1.04) mg/dL Estimated GFR 36.1 ML/MIN Glucose 105 (74-106) mg/dL Calcium 9.2 (8.4-10.2) mg/dL Total Bilirubin 0.70 (0.2-1.3) mg/dL AST 33 (14-36) U/L ALT 17 (0-35) U/L Alkaline Phosphatase 63 (38-126) U/L Troponin I < 0.012 (0.000-0.033) ng/mL Serum Total Protein 8.3 H (6.3-8.2) g/dL Albumin 4.7 (3.5-5.0) g/dL - Progress Progress Note: 02/22/25 22:56 This is 79-year-old female with history as above presenting with 24 hours of palpitations. She is sinus rhythm without ectopy on the monitor. No other associated symptoms. Get baseline labs EKG and chest x-ray for evaluation. 02/22/25 23:00 ekg sinus rhythem, apcs, no st or t wave abn 02/23/25 00:57 Labs reviewed. Slightly elevated BUN and creatinine otherwise unremarkable labs. She was watched on the cardiac catheterization technologist. She has occasional APCs but has been specifically in sinus rhythm without ectopy for over an hour. This symptom be discharged outpatient follow-up with her provider. Follow-up return instructions given - Departure Departure Disposition: Home Clinical Impression: Palpitations, Mild renal insufficiency Condition: Good Critical Care Time: No Referrals: KRISTOPHER CASEY MD [Primary Care Provider, [facility]] - Follow up/PCP as directed Instructions: Palpitations Additional Instructions: No concerning workup was seen with your workup. You have a few extra beats on your EKG EKG heart workup was otherwise normal. He appears slightly dehydrated and should increase your water intake. Return for worsening symptoms or concerns
[2025-02-23 00:17] LABS: BASOPHIL % 0.7 % (0.1-1.2); Basophil (Absolute #) 0.04 x10^3/uL (0.01-0.08); Eosinophil (Absolute #) 0.10 x10^3/uL (0.04-0.36); Hematocrit 41.0 % (34.1-44.9); Hemoglobin 13.1 g/dL (11.2-15.7); IMMATURE GRAN # 0.02 x10^3u/L (0.001-0.031); IMMATURE GRAN % 0.3 % (0.001-0.429); Lymphocyte (Absolute #) 1.89 x10^3/uL (1.18-3.74); Mean Corpuscular Hemoglobin 31.0 pg (25.6-32.2); Mean Corpuscular Hgb Concent. 32.0 g/dL (32.2-35.5); Monocyte (Absolute #) 0.49 x10^3/uL (0.24-0.86); NUCLEATED RBC # 0.00 x10^3u/L (0.00-0.012); NUCLEATED RBC % 0.0 % (0.00-0.2); Platelet Count 201 x10^3/uL (182-369); Red Blood Count 4.23 x10^6/uL (3.93-5.22); White Blood Count 5.8 x10^3/uL (3.98-10.04)
[2025-02-23 00:39] LABS: Calcium 9.2 mg/dL (8.4-10.2); Carbon Dioxide 23.0 mmol/L (22-30); Creatinine 1 1.47 mg/dL (0.52-1.04); EST GLOMERULAR FILTRATION RATE 36.1 ML/MIN; Glucose 105.0 mg/dL (74-106); Potassium 4.6 mmol/L (3.5-5.1); SGOT/AST 33.0 U/L (14-36); SGPT/ALT 17.0 U/L (0-35); Total Protein 8.3 g/dL (6.3-8.2)
[2025-02-23 01:02] VITALS: BP 146/65; PULSE 59; RESP 19; O2SAT 99
--- NOTE | 2025-02-23 08:55 | XRAY ---
Indication: Palpitations. Comparison: October 21, 2024 Portable chest hyperinflated again with minimal left base discoid atelectasis/scarring. No focal infiltrate, consolidation, or large effusion. Heart and mediastinal structures within normal limits. Bony thorax intact again with osteopenia, mild degenerative changes, and minimal levoscoliosis. Impression: Nonacute hyperinflated chest with chronic features.
== END 2025-02-23 01:10 | disposition home or self-care (01) ==
LOC: ED 22:29
DX: R00.2 Palpitations (principal); N28.9 Disorder of kidney and ureter, unspecified; Z79.899 Other long term (current) drug therapy